=== PATIENT | male | born 1940 | race Caucasian/White ===

== ENCOUNTER 2017-07-28 07:48 | Inpatient (IN) | payer OTHER ==
[2017-07-28] VITALS (8 sets, daily range): BP systolic 93–138; BP diastolic 61–96; PULSE 76–130; TEMP 36.5–36.7; O2SAT 93–100; BMI 18.7
[~2017-07-28] VITALS: Ht 170.2 cm; Wt 62.0 kg
[~2017-07-28 07:48] MED LIST: AMLO-110 PO; LISI-461 PO; PRAV20TA PO
[2017-07-28 08:40] LABS: BASO % 0.1 %; BASO ABS # 0.01 K/uL (0-0.2); EOS % 0.2 %; EOS ABS # 0.02 K/uL (0-0.5); HEMATOCRIT 43.5 % (42-52); HEMOGLOBIN 14.4 g/dL (14.0-18.0); IG# 0.02 K/uL (0.00-0.02); LYMPH % 13.5 %; LYMPH ABS # 1.15 K/uL (1.2-3.4); MEAN CELL VOLUME 87.7 fL (80-100); MEAN CORPUSCULAR HGB CONC 33.1 g/dl (32-36); MEAN PLATELET VOLUME 10.8 fL (7.4-10.4); MONO % 5.5 %; MONO ABS # 0.47 K/uL (0.11-0.59); NEUT % 80.5 %; NEUT ABS # 6.86 K/uL (1.4-6.5); PLATELET COUNT 180 K/uL (130-400); RED CELL DISTRIBUTION WIDTH CV 16.7 % (11.5-14.5); RED CELL DISTRIBUTION WIDTH SD 53.1 fL (36.4-46.3); WHITE BLOOD COUNT 8.53 K/uL (4.8-10.8)
[2017-07-28 08:53] LABS: ALBUMIN 2.7 gm/dl (3.4-5.0); ALT/SGPT 27 U/L (12-78); AST/SGOT 19 U/L (15-37); BLOOD UREA NITROGEN 26 mg/dl (7-18); CALCIUM 8.7 mg/dl (8.5-10.1); CARBON DIOXIDE 27 mmol/L (21-32); CREATININE 1.92 mg/dl (0.60-1.40); GLUCOSE 101 mg/dl (70-99); POTASSIUM 3.3 mmol/L (3.5-5.1); SODIUM 141 mmol/L (136-145)
[2017-07-28 08:55] LABS: INR 1.2 (0.9-1.1)
[2017-07-28 08:59] LABS: ALKALINE PHOSPHATASE 115 U/L (45-117); CKMB 2.2 ng/ml (0.5-3.6)
--- NOTE | 2017-07-28 09:05 | DIAGNOSTIC IMAGING REPORT ---
SINGLE VIEW PELVIS; 2 VIEWS LEFT HIP CLINICAL HISTORY: Left hip pain. FINDINGS: An AP view of the pelvis with AP and crosstable lateral views of the left hip are obtained. No prior studies are available for comparison at the time of dictation. The skeletal structures are osteopenic. There is a nondistracted intertrochanteric fracture of the left hip, best seen on the crosstable lateral projection. The bony pelvis and right hip appear intact. Soft tissue edema is noted in the left upper thigh. Mild arthritic change and joint space narrowing are seen in the hips. Sclerotic change is present in the sacroiliac joints. No bowel obstruction is seen. There is mild atherosclerotic calcification of the femoral arteries. IMPRESSION: 1. There is a nondistracted intertrochanteric fracture of the left femur. 2. No additional fracture is seen involving the right hip or bony pelvis. Electronically signed by: Ye Carrillo M.D. 07/28/2017 9:03 AM Dictated Date/Time: 07/28/2017 9:01 AM
--- NOTE | 2017-07-28 09:07 | DIAGNOSTIC IMAGING REPORT ---
SINGLE VIEW CHEST CLINICAL HISTORY: Fall. Dyspnea. FINDINGS: 2 AP, portable, supine chest radiographs are compared to study dated 01/04/2010 and correlated with chest CT dated 04/18/2010. The examination is degraded by portable technique and patient rotation. The cardiomediastinal heart is enlarged and there is atherosclerotic calcification of the thoracic aorta. The pulmonary vasculature is noncongested. Emphysema and chronic interstitial thickening are similar to previous. There is airspace consolidation identified in the right upper lobe. Opacities are also seen at the left lung base. No large pleural effusion or pneumothorax is seen. The skeletal structures are osteopenic. The bony thorax is grossly intact. IMPRESSION: 1. Cardiomegaly without radiographic evidence of congestive failure. 2. Emphysema. 3. Airspace consolidation is seen in the right upper lobe. Mild opacities are also seen at the left lung base. Correlate clinically for evidence of an infectious/inflammatory pneumonitis. Radiographic follow-up to resolution is recommended. Electronically signed by: Ye Carrillo M.D. 07/28/2017 9:06 AM Dictated Date/Time: 07/28/2017 9:04 AM
[2017-07-28] MEDS ORDERED: POTASSIUM CHLORIDE 10 MEQ / 100ML WTR IV STA (09:10)
[2017-07-28] MEDS ORDERED: DILTIAZEM HCL 5 MG/ML 5 ML VIAL IV STA (09:10)
[2017-07-28] MEDS ORDERED: DILTIAZEM BOLUS / DRIP IV STA (09:10)
[2017-07-28] MEDS ORDERED: NALOXONE HCL 0.4 MG/1 ML VIAL/CARP IV PRN (09:30)
[2017-07-28] MEDS ORDERED: ALUMINUM/MAGNESIUM/SIMETH (MAALOX MAX) 30 ML UDC PO PRN (09:30)
[2017-07-28] MEDS ORDERED: HydrALAZINE HCL 20 MG/ML VIAL IV. PRN (09:30)
[2017-07-28] MEDS ORDERED: MAGNESIUM HYDROXIDE SUSP 30 ML UDC PO PRN ×2 (09:30)
[2017-07-28] MEDS ORDERED: SOD PHOSPHATE/SOD BIPHOSPHATE ENEMA 132 ML BTL PR PRN (09:30)
[2017-07-28] MEDS ORDERED: ONDANSETRON INJ 2 MG/ML 2 ML VIAL IV PRN (09:30)
[2017-07-28] MEDS ORDERED: POLYETHYLENE (MIRALAX) 17 GM PACK PO PRN ×2 (09:30)
[2017-07-28] MEDS ORDERED: BISACODYL 10 MG SUPP PR PRN (09:30)
[2017-07-28] MEDS ORDERED: MoRPHine SULFATE 2 MG/ML CARP IV PRN (09:30)
[2017-07-28] MEDS ORDERED: NITROGLYCERIN 0.4 MG SL PER TAB CHARGE SL PRN (09:30)
[2017-07-28] MEDS: DILTIAZEM HCL INJ 125 MG in DEXTROSE 5% 100ML IV PRN (09:31)
[2017-07-28] MEDS ORDERED: LEVALBUTEROL/IPRATROPIUM NEB INH PRN (09:45)
--- NOTE | 2017-07-28 09:55 | History and Physical ---
History & Physical Date & Time of Service: Jul 28, 2017 at 09:33 Chief Complaint: L-Hip Pain Primary Care Physician: Oliver Boyle M.D. History of Present Illness Source: patient, family (daughter), clinic records, hospital records Patient is a 77 y/o male, with PMHx of HTN, HLD, tobacco abuse, who presented to the ED via EMS due to a fall. History is very limited as patient and daughter have very little history to provide. Per ED, patient had a mechanical fall last night. He then refused to seek medical attention and crawled back into bed. This AM, patient was incontinent of urine/stool due to immobility and EMS was called. Patient denies any syncope, LOC, lightheadedness, or dizziness. However, he cannot elaborate on how he fell. Daughter states "he uses a cane to walk and is very weak. Who knows, his hip could have broke causing him to fall. " Patient denies any h/o cardiac disease, CVA/TIA, DVT/PE. He was found to be in a.fib w/ RVR (rates in 140s) on arrival. He denies any h/o a.fib. IV Cardizem gtt was started in ED. Patient is unsure of medications he is on- daughter states, "he is on blood pressure and cholesterol medication." Per outpatient records: Lisinopril 10 mg daily, Norvasc 5 mg daily, Pravastatin 20 mg daily. He has not seen a PCP in a few years. He notes poor appetite/fluid intake. +L hip pain. +cough w/ yellow sputum production. Patient denies any fever, chills, sweats, lightheadedness, dizziness, vision changes, CP, palpitations, edema, SOB, wheezing, abdominal pain, nausea, vomiting, diarrhea, urinary symptoms, melena, numbness/tingling, anxiety/depression, active bleeding , or new skin discoloration/changes. Past Medical/Surgical History Medical Problems: HTN HLD tobacco abuse L leg surgery back surgery x2 hernia repair Family History Patient reports no known family medical history. Social History Smoking Status: Current Every Day Smoker Marital Status: Housing status: lives with significant other Immunizations History of Influenza Vaccine: No History of Tetanus Vaccine?: Unknown History of Pneumococcal: No History of Hepatitis B Vaccine: No Allergies Coded Allergies: Aspirin (Verified Adverse Reaction, Unknown, VOMITING, 12/17/14) Home Medications No Active Prescriptions or Reported Meds Physical Exam Vital Signs Date Time Temp Pulse Resp B/P (MAP) Pulse Ox O2 Delivery O2 Flow Rate FiO2 07/28/17 08:08 140 07/28/17 08:03 138 18 147/105 96 Room Air General Appearance: no apparent distress, + cachetic, + thin Head: normocephalic, atraumatic Eyes: PERRL ENT: + pertinent finding ([place]) Neck: supple, no JVD Respiratory/Chest: no respiratory distress, no accessory muscle use, + decreased breath sounds (throughout), + wheezing (mild expiratory wheeze) Cardiovascular: + tachycardia, + irregularly irregular Abdomen/GI: normal bowel sounds, non tender, soft Extremities/Musculoskelatal: no calf tenderness, no pedal edema Neurologic/Psych: alert, normal mood/affect Skin: normal color, warm/dry, no rash Diagnostics Laboratory Results Results Past 24 Hours Test 07/28/17 08:25 Range/Units White Blood Count 8.53 4.8-10.8 K/uL Red Blood Count 4.96 4.7-6.1 M/uL Hemoglobin 14.4 14.0-18.0 g/dL Hematocrit 43.5 42-52 % Mean Corpuscular Volume 87.7 80-100 fL Mean Corpuscular Hemoglobin 29.0 25-34 pg Mean Corpuscular Hemoglobin Concent 33.1 32-36 g/dl Platelet Count 180 130-400 K/uL Mean Platelet Volume 10.8 7.4-10.4 fL Neutrophils (%) (Auto) 80.5 % Lymphocytes (%) (Auto) 13.5 % Monocytes (%) (Auto) 5.5 % Eosinophils (%) (Auto) 0.2 % Basophils (%) (Auto) 0.1 % Neutrophils # (Auto) 6.86 1.4-6.5 K/uL Lymphocytes # (Auto) 1.15 1.2-3.4 K/uL Monocytes # (Auto) 0.47 0.11-0.59 K/uL Eosinophils # (Auto) 0.02 0-0.5 K/uL Basophils # (Auto) 0.01 0-0.2 K/uL RDW Standard Deviation 53.1 36.4-46.3 fL RDW Coefficient of Variation 16.7 11.5-14.5 % Immature Granulocyte % (Auto) 0.2 % Immature Granulocyte # (Auto) 0.02 0.00-0.02 K/uL Prothrombin Time 12.9 9.0-12.0 SECONDS Prothromb Time International Ratio 1.2 0.9-1.1 Activated Partial Thromboplast Time 25.0 21.0-31.0 SECONDS Partial Thromboplastin Ratio 1.0 Sodium Level 141 136-145 mmol/L Potassium Level 3.3 3.5-5.1 mmol/L Chloride Level 108 98-107 mmol/L Carbon Dioxide Level 27 21-32 mmol/L Anion Gap 6.0 3-11 mmol/L Blood Urea Nitrogen 26 7-18 mg/dl Creatinine 1.92 0.60-1.40 mg/dl Estimated GFR () 37.8 Estimated GFR (Non- 32.6 BUN/Creatinine Ratio 13.8 10-20 Random Glucose 101 70-99 mg/dl Calcium Level 8.7 8.5-10.1 mg/dl Total Bilirubin 1.6 0.2-1 mg/dl Aspartate Amino Transf (AST/SGOT) 19 15-37 U/L Alanine Aminotransferase (ALT/SGPT) 27 12-78 U/L Alkaline Phosphatase 115 45-117 U/L Total Creatine Kinase 68 39-308 U/L Creatine Kinase MB 2.2 0.5-3.6 ng/ml Creatine Kinase MB Ratio 3.2 0-3.0 Troponin I 0.024 0-0.045 ng/ml Pro-B-Type Natriuretic Peptide > 50778 0-1800 pg/ml Total Protein 7.0 6.4-8.2 gm/dl Albumin 2.7 3.4-5.0 gm/dl Globulin 4.3 2.5-4.0 gm/dl Albumin/Globulin Ratio 0.6 0.9-2 Diagnostic Radiology SINGLE VIEW CHEST CLINICAL HISTORY: Fall. Dyspnea. FINDINGS: 2 AP, portable, supine chest radiographs are compared to study dated 01/04/2010 and correlated with chest CT dated 04/18/2010. The examination is degraded by portable technique and patient rotation. The cardiomediastinal heart is enlarged and there is atherosclerotic calcification of the thoracic aorta. The pulmonary vasculature is noncongested. Emphysema and chronic interstitial thickening are similar to previous. There is airspace consolidation identified in the right upper lobe. Opacities are also seen at the left lung base. No large pleural effusion or pneumothorax is seen. The skeletal structures are osteopenic. The bony thorax is grossly intact. IMPRESSION: 1. Cardiomegaly without radiographic evidence of congestive failure. 2. Emphysema. 3. Airspace consolidation is seen in the right upper lobe. Mild opacities are also seen at the left lung base. Correlate clinically for evidence of an infectious/inflammatory pneumonitis. Radiographic follow-up to resolution is recommended. Electronically signed by: Ye Carrillo M.D. 07/28/2017 9:06 AM Dictated Date/Time: 07/28/2017 9:04 AM The status of this report is Signed. Draft = Not yet reviewed or approved by Radiologist. Signed = Reviewed and approved by Radiologist. SINGLE VIEW PELVIS; 2 VIEWS LEFT HIP CLINICAL HISTORY: Left hip pain. FINDINGS: An AP view of the pelvis with AP and crosstable lateral views of the left hip are obtained. No prior studies are available for comparison at the time of dictation. The skeletal structures are osteopenic. There is a nondistracted intertrochanteric fracture of the left hip, best seen on the crosstable lateral projection. The bony pelvis and right hip appear intact. Soft tissue edema is noted in the left upper thigh. Mild arthritic change and joint space narrowing are seen in the hips. Sclerotic change is present in the sacroiliac joints. No bowel obstruction is seen. There is mild atherosclerotic calcification of the femoral arteries. IMPRESSION: 1. There is a nondistracted intertrochanteric fracture of the left femur. 2. No additional fracture is seen involving the right hip or bony pelvis. Electronically signed by: Ye Carrillo M.D. 07/28/2017 9:03 AM Dictated Date/Time: 07/28/2017 9:01 AM The status of this report is Signed. Draft = Not yet reviewed or approved by Radiologist. Signed = Reviewed and approved by Radiologist HARVEY STEINERMANGREGORIO ID:[id number] 28-JUL-2017 08:06:30 [facility] Poor data quality, interpretation may be adversely affected Undetermined rhythm ST & T wave abnormality, consider inferolateral ischemia Abnormal ECG When compared with ECG of 03-DEC-2014 09:22, Current undetermined rhythm precludes rhythm comparison, needs review T wave inversion now evident in Inferior leads T wave inversion now evident in Anterolateral leads 25mm/s 10mm/mV 150Hz 8.0 SP2 12SL 241 YAZAN: 10 Referred by: Referred Self Unconfirmed Vent. rate 142 BPM FL interval * ms QRS duration 82 ms QT/QTc 260/399 ms P-R-T axes * 73 258 1940 (77 yr) Male 1lb Room: Loc:15 Clinical Research Associate:SAMY Childs ind: Impression Assessment and Plan Patient is a 77 y/o male, with PMHx of HTN, HLD, tobacco abuse, who presented to the ED via EMS due to a fall. L hip fracture from mechanical fall: - Tylenol PRN, Oxycodone PRN, and IV Dilaudid PRN for pain management - Check Vitamin D level - PT/OT once OK by orthopedics- will likely need placement - Will make NPO after midnight - Orthopedics consulted, appreciate recommendations - Cardiology consulted for preop clearance, appreciate recommendations New onset a.fib w/ RVR: - Admit to tele for cardiac monitoring - Trend cardiac enzymes - O2 protocol, wean as tolerated- does NOT have O2 supplement at home - Check mag level - Cardizem gtt - No anticoagulation at this time due to possible upcoming orthopedics procedure - Obtain ECHO - Elevated BNP- does not appear clinically to be fluid overloaded, CXR w/out evidence of CHF - Cardiology consulted PNA- RUL and LLB: - IV Rocephin + Azithromycin - DuoNebs QID and PRN for SOB/wheezing - MRSA swab and sputum cultures pending Hypokalemia: - IV 10 mEq KCL given in ED - Follow PRP and replace PRN ?REBEKAH on CKD stage III- 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: - Avoid nephrotoxic agents and renally dose medications as appropriate - Gentle hydration w/ IV NS + 20 mEq KCL @ 80 ml/hr - Follow PRP HTN: - Will hold Lisinopril 10 mg daily and Norvasc 5 mg daily due to IV Cardizem gtt - IV Hydralazine PRN HLD: Continue Pravastatin 20 mg HS DVT prophylaxis: TEDs/SCDs; no chemical anticoagulation due to ?orthopedics procedure Code status: LEVEL V, DNR Dispo: From home, lives with - CM consulted; will consult PT/OT once OK by orthopedics Resuscitation Status LEVEL V, DNR VTE Prophylaxis Will order VTE Prophylaxis: Yes Reviewed: Pt Seen/Exam by Me History Physician Appraiser Art supervision Note: I interviewed and examined the patient. Discussed with CORDELIA Warren and agree with findings and plan as documented in the note. Any exceptions or clarifications are listed here: Patient is a 77-year-old male with history of hypertension, hyperlipidemia, likely COPD, current smoker, and no regular primary care, admitted with mechanical fall with left hip fracture, found to be with new onset rapid atrial fibrillation, also with findings of bilateral pneumonia on chest x-ray. He reports some progressively worsening shortness of breath more so in the last few months, but has not noted any chest pain or heart palpitations. He has not been seen by a Dr. in a couple of years as per the history. History reviewed and agree with PA note as above ROS as above Vitals reviewed, telemetry with atrial fibrillation now rate controlled in the 90s on a diltiazem drip Gen: Alert and awake, cachectic, lying flat on his back, NAD HEENT: anicteric sclerae, EOMI CV: Irregularly irregular, regular rate, difficult to auscultate murmur Pulm: Diminished breath sounds throughout, scattered rhonchi, no crackles Abd: +BS soft NT ND no masses or hernias, Rogers catheter in place Ext: no edema, 1 + DP pulses bilaterally, left hip with positive tenderness to palpation Skin: no rashes, warm/dry Echo with biventricular systolic dysfunction, LVEF 20-25%, elevated right-sided pressures, and moderate to severe mitral regurgitation Patient is a 69-year-old male with history as above, here with left hip fracture new onset rapid atrial fibrillation, as well as new onset biventricular systolic CHF. Does not clinically seem to be volume overloaded, perhaps proBNP significantly elevated due to mitral regurgitation-discussed case with cardiology. It is impossible to know when his atrial fibrillation started. With biventricular systolic CHF, he may have ischemic disease, as well as right-sided failure from either left-sided heart failure or from pulmonary disease. -We will transition off diltiazem drip to p.o. metoprolol for rate control and carefully watch blood pressure -Eventually will need anticoagulation for atrial fibrillation -Appreciate cardiology consultation-should be able to go to surgery tomorrow -Appreciate orthopedic surgery consultation for fracture management -Otherwise treatment for suspected pneumonia and suspected COPD as above- although with cachexia and long-term smoking, these infiltrates very well could be hiding a malignancy as well. Will need either CT of the chest to further clarify, or follow serial chest x-rays to resolution. Documented By: Mirian Dumont
--- NOTE | 2017-07-28 09:58 | CONSULTATION REPORT ---
DATE OF CONSULTATION: 07/28/2017 Consultation in the Emergency Room. HISTORY OF PRESENT ILLNESS: Jas is a pleasant gentleman. He is 77, looks much older than stated age, in poor state of health, fell, suffered an acute injury to his left lower extremity. He suffered an intertrochanteric fracture of the left hip. PAST MEDICAL HISTORY: Positive for atrial fibrillation, COPD. I did not get a history of carcinoma. MEDICATIONS: Numerous left on his questionnaire. REVIEW OF SYSTEMS: He admits to some shortness of breath, some chest pain. Denies any abdominal pain. Admits to mostly orthopedic issues. Denies any ear, nose, and throat complaints. PHYSICAL EXAMINATION: VITAL SIGNS: Includes blood pressure 140/90, pulse 100, slightly rapid. Respiratory rate 22, O2 sat pulse ox 96. HEENT EXAMINATION: Essentially normal. He is cachectic in appearance. He is slightly disheveled. He is very very cachectic all over. CARDIAC: His rhythm is not regular, I am not sure exactly what rhythm it is, but about 100 beats per minute. LUNGS: Slightly decreased. ABDOMEN: Flat, scaphoid, but nontender. EXTREMITIES: Intact x4. Left hip has pain over the greater trochanter. DIAGNOSTIC DATA: X-rays demonstrate intertrochanteric fracture of the hip, minimally displaced. IMPRESSION: Intertrochanteric fracture, left hip, minimally displaced. PLAN: He is being admitted to the medical service. We will get appropriate labs. We will put him on the schedule for tomorrow for an open reduction and internal fixation of the left hip, that will be Saturday. I estimate time of surgery around 5:00 p.m.
[2017-07-28] MEDS: NSS + 20MEQ KCL 1000ML 1,000 ML IV SCH (11:11)
[2017-07-28] MEDS: CEFTRIAXONE SOD INJ 1 GM in DEXTROSE 5% ADD-VANTAGE 50ML 50 ML IV SCH (11:13)
[2017-07-28] MEDS ORDERED: AZITHROMYCIN IV 500 MG in DEXTROSE 5% 250ML 250 ML IV ONE (12:00)
[2017-07-28] MEDS ORDERED: PNEUMOCOCCAL ADMINISTRATION CHARGE ONE (14:15)
[2017-07-28] MEDS ORDERED: PNEUMOCOCCAL POLYSACCHARIDES 25 MCG/0.5 ML VIAL/SYR IM. ONE (14:15)
[2017-07-28] MEDS ORDERED: LEVALBUTEROL/IPRATROPIUM NEB INH SCH (15:00)
[2017-07-28] MEDS: IPRATROPIUM BROMIDE NEB SOLN 0.02% 2.5 ML VIAL INH SCH ×2 (15:02→19:06)
[2017-07-28] MEDS: LEVALBUTEROL 1.25MG/0.5ML NEB INH SCH ×2 (15:02→19:04)
[2017-07-28] MEDS: PRAVASTATIN SOD 20 MG TAB PO SCH (16:14)
--- NOTE | 2017-07-28 17:21 | ECHOCARDIOGRAM REPORT ---
*NOTICE TO RECEIVING DEMOCRAT AGENCY This information is strictly Confidential and protected under [place] law. [place] law prohibits you from making any further disclosure of this information unless further disclosure is expressly permitted by the written consent of the person to whom it pertains or is authorized by law. A general authorization for the release of medical or other information is not sufficient for this purpose. Hospital accepts no responsibility if the information is made available to any other person, INCLUDING THE PATIENT. Interpretation Summary * Name: GREGORIO MURILLO Study Date: 07/28/2017 01:31 PM * Patient Location: .2T\S\E222\S\1 HR: 107 * : 1940 (M/d/yyyy) Gender: Male Height: 67 in * Age: 77 yrs Ethnicity: [place] Weight: 119 lb * Ordering Physician: Rose Warren * Referring Physician: Self, Referred * Performed By: Josh Sherman RDCS * * Reason For Study: A-FIB * BSA: 1.6 m2 * -- Conclusions -- * Left ventricular systolic function is severely reduced. * The right ventricular systolic function is reduced as assessed by tricuspid annular plane systolic excursion (TAPSE) (TAPSE <1.6 cm). * The left atrium is borderline dilated. * Aortic valve sclerosis mild, without significant aortic valvular stenosis. * There is moderate to severe mitral regurgitation. * There is mild to moderate tricuspid regurgitation. * Right ventricular systolic pressure is elevated at 30-40mmHg. Procedure Details * A complete two-dimensional transthoracic echocardiogram was performed (2D, M-mode, Doppler and color flow Doppler). * The study was technically limited. * There were technical limitations due to patient'spoor positioning * The study was technically difficult, but visualization was adequate with the administration of Definity ultrasound contrast. * A contrast injection of Definity was performed to improve assessment of LV function. * Contrast was injected into an intravenous site in the right arm. * One vial of Definity ultrasound contrast was diluted in normal saline to a total volume of 10 ml. A total of '3' ml of solution was administered during imaging. * Lot # [id number] of Definity utilized for procedure. * Expiration date 1APR19. * The attending nurse who injected the contrast agent was DANDY Paez. Left Ventricle * The left ventricle is normal in size. * There is normal left ventricular wall thickness. * Left ventricular systolic function is severely reduced. * Ejection Fraction = 20-25%. * There is severe global hypokinesis of the left ventricle. Right Ventricle * The right ventricular cavity size is normal (basal dimension <4.2 cm in right ventricular apical 4-chamber view). * The right ventricular systolic function is reduced as assessed by tricuspid annular plane systolic excursion (TAPSE) (TAPSE <1.6 cm). Atria * The left atrium is borderline dilated. * Right atrial size is normal. Mitral Valve * The mitral valve leaflets appear thickened, but open well. * There is moderate to severe mitral regurgitation. * The mitral regurgitant jet is eccentrically directed. * The mitral regurgitant jet is posteriorly directed, which is consistent with anterior leaflet pathology. Tricuspid Valve * The tricuspid valve is not well visualized, but is grossly normal. * There is mild to moderate tricuspid regurgitation. * Right ventricular systolic pressure is elevated at 30-40mmHg. Aortic Valve * Aortic valve sclerosis mild, without significant aortic valvular stenosis. * Not assessed * Trace aortic regurgitation. Pulmonic Valve * The pulmonic valve is not well visualized. Pericardium/Pleural * There is no pericardial effusion. Great Vessels * Dilated inferior vena cava with reduced collapsability with sniff indicates an elevated right atrial pressure of 15 mmHg MMode 2D Measurements and Calculations IVSd 1.1 cm IVSs 1.1 cm LVIDd 5.1 cm LVIDs 4.6 cm LVPWd 1.1 cm LVPWs 1.2 cm IVS/LVPW 0.96 FS 10.1 % EDV(Teich) 124.3 ml ESV(Teich) 97.1 ml EF(Teich) 21.9 % EDV(cubed) 133.3 ml ESV(cubed) 97.0 ml EF(cubed) 27.3 % % IVS thick 3.8 % % LVPW thick 10.4 % LV mass(C)d 209.4 grams LV mass(C)dI 129.1 grams/m\S\2 LV mass(C)s 194.4 grams LV mass(C)sI 119.9 grams/m\S\2 SV(Teich) 27.2 ml SI(Teich) 16.8 ml/m\S\2 SV(cubed) 36.3 ml SI(cubed) 22.4 ml/m\S\2 ACS 1.5 cm LA dimension 4.4 cm LVOT diam 1.9 cm LVOT area 3.0 cm\S\2 LVAd ap4 28.1 cm\S\2 LVLd ap4 7.5 cm EDV(MOD-sp4) 87.7 ml EDV(sp4-el) 89.7 ml LVAs ap4 23.5 cm\S\2 LVLs ap4 7.3 cm ESV(MOD-sp4) 64.0 ml ESV(sp4-el) 64.4 ml EF(MOD-sp4) 27.1 % EF(sp4-el) 28.2 % LVAd ap2 25.9 cm\S\2 LVLd ap2 7.4 cm EDV(MOD-sp2) 76.0 ml EDV(sp2-el) 76.8 ml LVAs ap2 21.9 cm\S\2 LVLs ap2 7.0 cm ESV(MOD-sp2) 56.3 ml ESV(sp2-el) 58.4 ml EF(MOD-sp2) 25.8 % EF(sp2-el) 23.9 % LVLd %diff -0.16 % EDV(MOD-bp) 81.7 ml LVLs %diff -4.18 % ESV(MOD-bp) 61.0 ml EF(MOD-bp) 25.3 % SV(MOD-sp4) 23.7 ml SI(MOD-sp4) 14.6 ml/m\S\2 SV(MOD-sp2) 19.6 ml SI(MOD-sp2) 12.1 ml/m\S\2 SV(MOD-bp) 20.7 ml SI(MOD-bp) 12.7 ml/m\S\2 SV(sp4-el) 25.3 ml SI(sp4-el) 15.6 ml/m\S\2 SV(sp2-el) 18.4 ml SI(sp2-el) 11.3 ml/m\S\2 Doppler Measurements and Calculations MV E max candi 93.8 cm/sec MV dec time 0.13 sec LV V1 max PG 1.8 mmHg LV V1 max 67.4 cm/sec TR max candi 214.8 cm/sec
[2017-07-28 17:34] LABS: CKMB 2.2 ng/ml (0.5-3.6)
[2017-07-28] MEDS ORDERED: POTASSIUM CHLORIDE 20 MEQ TABCR PO ONE (18:15)
--- NOTE | 2017-07-28 18:22 | Progress Note ---
Progress Note Date of Service Jul 28, 2017. Progress Note The patient is a 77 year old scheduled for an IM rodding tomorrow after suffering a mechanical fall. The H&P states that he arrived in atrial fibrillation which seems unclear to me because his admitting EKG shows and undetermined rhythm. He denies a history of cardiac disease but he rarely sees his PCP. His previous EKG from 2014 is sinus rhythm. A cardiac consult has been ordered. He is an active smoker and smokes approximately one pack per day. He has hypertension and HLD. His echocardiogram which was just done shows severe global hypokinesis of the LV and an EF of 20-25%. He has moderate to severe MR, mild to moderate TR and and an elevated RVSP of 30-40.
--- NOTE | 2017-07-28 19:01 | Cardiology Consultation ---
Cardiology Consultation Date of Consultation: Jul 28, 2017. Requesting Physician: Tim Reason for Consultation: Atrial fibrillation Pt evaluation today including: conversation w/ patient, physical exam, chart review, lab review, review of studies, review of inpatient medication list, conversation w/ attending History of Present Illness The patient is 69-year-old gentleman without a known cardiac history suffered a fall early this morning and fractured his hip. He is brought to [facility] for evaluation and discovered to have atrial fibrillation with rapid ventricular response. Patient states that he has been unaware of any arrhythmia. He has not noticed any palpitations or rapid heartbeats. He does claim to check his blood pressure and pulse on occasion has not noticed any high pulse readings. He states that normally he is ambulatory and likes to go hunting and camping. This history is contradicted by other family members who states that he has weakness and uses a cane for ambulation. Does report having an element of dyspnea with activity. He does not report orthopnea or paroxysmal nocturnal dyspnea. He has not report any swelling in his lower extremities. He has not report any symptoms of chest pain either at rest or with activity. He states that he does get dizzy on occasion but has difficulty characterizing this further. At the time of this interview the patient complains of some discomfort at his fracture. Otherwise claims to be feeling well. Past Medical/Surgical History COPD Hyperlipidemia Hypertension Abdominal aortic aneurysm Past surgical history: Inguinal hernia repair Family History Patient reports no known family medical history. Noncontributory given his advanced age and comorbidities Social History Smoking Status: Current Every Day Smoker History of Alcohol Use: Yes Previously worked as a [employer]. Currently lives independently with his Review of Systems He denies any recent fevers or chills. He states that he has been eating well and not losing weight. In fact he states he is at his ideal weight. All Other Systems: Reviewed and Negative Allergies Coded Allergies: Aspirin (Verified Adverse Reaction, Unknown, VOMITING, 12/17/14) Medications Current Inpatient Medications Medications (Trade) Dose Ordered Sig/Luis Route Start Time Stop Time Status Last Admin Dose Admin Diltiazem HCl 125 mg/Dextrose 125 ml @ 0 mls/hr Q0M PRN IV 07/28/17 09:15 08/27/17 09:14 07/28/17 09:31 5 MLS/HR Potassium Chloride/Sodium Chloride 1,000 ml @ 50 mls/hr Q20H IV 07/28/17 11:00 08/27/17 10:59 07/28/17 11:11 80 MLS/HR Acetaminophen (Tylenol Tab) 650 mg Q4H PRN PO 07/28/17 09:30 08/27/17 09:29 Al Hydrox/Mg Hydrox/Simethicone (Maalox Max Susp) 15 ml Q4H PRN PO 07/28/17 09:30 08/27/17 09:29 Magnesium Hydroxide (Milk Of Magnesia Susp) 30 ml Q12H PRN PO 07/28/17 09:30 08/27/17 09:29 Ondansetron HCl (Zofran Inj) 4 mg Q6H PRN IV 07/28/17 09:30 08/27/17 09:29 Nitroglycerin (Nitrostat Tab) 0.4 mg UD PRN SL 07/28/17 09:30 08/27/17 09:29 Morphine Sulfate (MoRPHine SULFATE INJ) 2 mg Q30M PRN IV 07/28/17 09:30 08/11/17 09:29 Polyethylene (Miralax Powder Packet) 17 gm DAILY PRN PO 07/28/17 09:30 08/27/17 09:29 Oxycodone HCl (Roxicodone Immediate Rel Tab) 5 mg Q4H PRN PO 07/28/17 09:30 08/11/17 09:29 Naloxone HCl (Narcan Inj) 0.1 mg PRN PRN IV 07/28/17 09:30 08/27/17 09:29 Senna/Docusate Sodium (Senokot S Tab) 2 tab HS PO 07/28/17 21:00 08/27/17 20:59 Bisacodyl (Dulcolax Supp) 10 mg DAILY PRN IL 07/28/17 09:30 08/27/17 09:29 Sodium Biphosphate/ Sodium Phosphate (Fleet Enema) 132 ml PRN PRN IL 07/28/17 09:30 Hydromorphone HCl (Dilaudid Inj) 0.5 mg Q3H PRN IV 07/28/17 09:30 08/11/17 09:29 Hydralazine HCl (HydrALAZINE INJ) 10 mg Q6H PRN IV. 07/28/17 09:30 08/27/17 09:29 Ceftriaxone Sodium 1 gm/ Dextrose 50 ml @ 100 mls/hr Q24H IV 07/28/17 11:00 08/04/17 10:59 07/28/17 11:13 100 MLS/HR Azithromycin 250 mg/Dextrose 252.5 ml @ 125 mls/hr DAILY@1200 IV 07/29/17 12:00 08/04/17 11:59 Pravastatin Sodium (Pravachol Tab) 20 mg DAILY@17 PO 07/28/17 17:00 08/27/17 16:59 07/28/17 16:14 20 MG Ipratropium [place]us (Atrovent 0.02% 0.5MG/2.5ML Neb) 0.5 mg Q6R INH 07/28/17 15:00 08/27/17 14:59 07/28/17 15:02 0.5 MG Levalbuterol (Xopenex 1.25MG/ 0.5ML Neb) 1.25 mg Q6R INH 07/28/17 15:00 08/27/17 14:59 07/28/17 15:02 1.25 MG Cefazolin Sodium 15 ml @ 3.75 mls/ min PREOP IV 07/29/17 06:00 07/29/17 18:00 Metoprolol Tartrate (Lopressor Tab) 12.5 mg BID PO 07/28/17 21:00 08/27/17 20:59 UNV Physical Exam Vital Signs Past 12 Hours Date Time Temp Pulse Resp B/P (MAP) Pulse Ox O2 Delivery O2 Flow Rate FiO2 07/28/17 16:00 Room Air 07/28/17 15:33 36.5 92 20 98/64 (75) 93 07/28/17 15:04 87 18 93 Room Air 07/28/17 12:00 Room Air 07/28/17 10:44 36.5 112 18 138/96 (110) 98 Room Air 07/28/17 10:20 105 22 140/94 94 07/28/17 09:49 96 Room Air 07/28/17 09:28 100 22 140/94 96 Room Air 07/28/17 08:08 140 07/28/17 08:03 138 18 147/105 96 Room Air The patient is alert and oriented. Mood and affect appeared normal. He answered all questions appropriately. He appeared cachectic and thin HEENT: Pupils are equal and reactive to light and accommodation. Extraocular movements are intact. The sclerae are anicteric. Neuro: Cranial nerves intact Neck: Patient's neck is supple. He has palpable carotid pulses bilaterally without bruits on auscultation. There is no evidence of jugular venous distention. The thyroid is not enlarged. Lungs: Clear to auscultation bilaterally. He has good air movement without use of accessory muscles. No rales wheezes or rhonchi. Cardiac: Heart demonstrates an irregular rate and rhythm. Normal S1 and S2. Holosystolic murmur of variable intensity heard at the axilla. Pulses: The patient has palpable radial pulses bilaterally that are equal in intensity Extremities: There was no evidence of hypoperfusion. There is no cyanosis or clubbing. There is no edema. Skin: I did not appreciate any rashes on examination today. Data Laboratory Results: Last 24 Hours Test 07/28/17 08:25 07/28/17 11:20 07/28/17 16:20 07/28/17 16:43 White Blood Count 8.53 K/uL Red Blood Count 4.96 M/uL Hemoglobin 14.4 g/dL Hematocrit 43.5 % Mean Corpuscular Volume 87.7 fL Mean Corpuscular Hemoglobin 29.0 pg Mean Corpuscular Hemoglobin Concent 33.1 g/dl Platelet Count 180 K/uL Mean Platelet Volume 10.8 fL Neutrophils (%) (Auto) 80.5 % Lymphocytes (%) (Auto) 13.5 % Monocytes (%) (Auto) 5.5 % Eosinophils (%) (Auto) 0.2 % Basophils (%) (Auto) 0.1 % Neutrophils # (Auto) 6.86 K/uL Lymphocytes # (Auto) 1.15 K/uL Monocytes # (Auto) 0.47 K/uL Eosinophils # (Auto) 0.02 K/uL Basophils # (Auto) 0.01 K/uL RDW Standard Deviation 53.1 fL RDW Coefficient of Variation 16.7 % Immature Granulocyte % (Auto) 0.2 % Immature Granulocyte # (Auto) 0.02 K/uL Prothrombin Time 12.9 SECONDS Prothromb Time International Ratio 1.2 Activated Partial Thromboplast Time 25.0 SECONDS Partial Thromboplastin Ratio 1.0 Sodium Level 141 mmol/L Potassium Level 3.3 mmol/L Chloride Level 108 mmol/L Carbon Dioxide Level 27 mmol/L Anion Gap 6.0 mmol/L Blood Urea Nitrogen 26 mg/dl Creatinine 1.92 mg/dl Estimated GFR () 37.8 Estimated GFR (Non- 32.6 BUN/Creatinine Ratio 13.8 Random Glucose 101 mg/dl Calcium Level 8.7 mg/dl Magnesium Level 2.0 mg/dl Total Bilirubin 1.6 mg/dl Aspartate Amino Transf (AST/SGOT) 19 U/L Alanine Aminotransferase (ALT/SGPT) 27 U/L Alkaline Phosphatase 115 U/L Total Creatine Kinase 68 U/L Creatine Kinase MB 2.2 ng/ml 2.2 ng/ml Creatine Kinase MB Ratio 3.2 Troponin I 0.024 ng/ml 0.024 ng/ml Pro-B-Type Natriuretic Peptide > 88747 pg/ml Total Protein 7.0 gm/dl Albumin 2.7 gm/dl Globulin 4.3 gm/dl Albumin/Globulin Ratio 0.6 25-Hydroxy Vitamin D Total 5.6 ng/ml Urine Color DK YELLOW Urine Appearance CLEAR Urine pH 5.5 Urine Specific [place] 1.026 Urine Protein 1+ Urine Glucose (UA) NEG Urine Ketones TRACE Urine Occult Blood TRACE Urine Nitrite NEG Urine Bilirubin NEG Urine Urobilinogen NEG Urine Leukocyte Esterase NEG Urine WBC (Auto) 0 /hpf Urine RBC (Auto) 0-4 /hpf Urine Hyaline Casts (Auto) 1-5 /lpf Urine Epithelial Cells (Auto) 10-20 /lpf Urine Bacteria (Auto) NEG Imaging: Chest x-ray demonstrated some parenchymal changes but no evidence of pulmonary edema EKG: Atrial fibrillation with rapid ventricular response Telemetry reviewed: Atrial fibrillation with rapid ventricular response Echocardiogram performed today revealed severe biventricular failure with severe mitral regurgitation. Assessment & Plan 1. Left ventricular systolic failure: Patient actually has biventricular failure. He is not appear to be overtly symptomatic. I suspect he is very sedentary and performs limited activity perhaps due to other comorbidities. Despite a markedly elevated N terminal proBNP his lung examination is relatively benign. He has not report orthopnea and does not appear to be volume overloaded. The etiology of his ventricular failure is unclear. He certainly has multiple risk factors for coronary artery disease. However, he has biventricular failure and has not manifest symptoms of chest pain or angina. I think this would be unusual in a male if he had an ischemic cardiomyopathy. In any event he will require some evaluation in the near future. Medical therapy will be initiated after his surgery. 2. Atrial fibrillation: Unclear duration. He claims to monitor his pulse at home but I am not sure how reliable he has. It is possible this represents an etiology for his reduced LV function. Overall rate control was poor the time of admission but he was in pain and may have been slightly hypovolemic. This afternoon his heart rates are improved. I think we can start a low-dose beta- myke and see how response before his surgery tomorrow. 3. Valvular heart disease: Patient appears to have moderate to severe mitral regurgitation. This likely to require some additional evaluation in order to gauge the severity. However, with his reduced LV systolic function he is not a good candidate for any type of operative intervention.
[2017-07-28] MEDS: METOPROLOL TARTRATE 25 MG TAB PO SCH (21:00)
[2017-07-28] MEDS: HYDROmorphone INJ 0.5 MG/0.5 ML SYR IV PRN (21:07)
[2017-07-28] MEDS: DOCUSATE SODIUM/SENNA 50/8.6MG TAB PO SCH (21:07)
[2017-07-28] MEDS: OXYCODONE HCL IR 5 MG TAB (IMMEDIATE RELEASE) PO PRN (23:03)
[2017-07-28] MEDS ORDERED: LORAZEPAM 2 MG/ML 1 ML VIAL ONE (23:19)
[2017-07-28] MEDS ORDERED: LORAZEPAM 2 MG/ML 1 ML VIAL IV STA (23:41)
[2017-07-29] VITALS (16 sets, daily range): BP systolic 96–133; BP diastolic 67–86; PULSE 50–144; TEMP 36.2–36.6; O2SAT 93–100; Ht 170.2 cm; Wt 62.0 kg
[2017-07-29 01:08] LABS: CKMB 1.7 ng/ml (0.5-3.6)
[2017-07-29] MEDS: IPRATROPIUM BROMIDE NEB SOLN 0.02% 2.5 ML VIAL INH SCH ×4 (01:47→19:41)
[2017-07-29] MEDS: LEVALBUTEROL 1.25MG/0.5ML NEB INH SCH ×4 (01:47→19:41)
[2017-07-29] MEDS: NSS + 20MEQ KCL 1000ML 1,000 ML IV SCH (05:16)
[2017-07-29] MEDS ORDERED: CEFAZOLIN IV 2,000 MG in DEXTROSE 5% 50ML 50 ML IV SCH (06:00)
[2017-07-29] MEDS ORDERED: CEFAZOLIN 2000MG IV PUSH 15 ML IV SCH (06:00)
[2017-07-29 07:07] LABS: HEMATOCRIT 36.1 % (42-52); HEMOGLOBIN 11.9 g/dL (14.0-18.0); MEAN CELL VOLUME 87.4 fL (80-100); MEAN CORPUSCULAR HEMOGLOBIN 28.8 pg (25-34); MEAN PLATELET VOLUME 10.5 fL (7.4-10.4); PLATELET COUNT 134 K/uL (130-400); RED CELL DISTRIBUTION WIDTH CV 16.7 % (11.5-14.5); RED CELL DISTRIBUTION WIDTH SD 52.9 fL (36.4-46.3); WHITE BLOOD COUNT 7.17 K/uL (4.8-10.8)
[2017-07-29 07:46] LABS: CALCIUM 8.4 mg/dl (8.5-10.1); CREATININE 1.95 mg/dl (0.60-1.40); POTASSIUM 5.1 mmol/L (3.5-5.1)
--- NOTE | 2017-07-29 08:52 | Hospitalist Progress Note ---
Hospitalist Progress Note Date of Service Jul 29, 2017. (Sally Cee PA-C) Subjective Pt evaluation today including: conversation w/ patient, physical exam, chart review, lab review, review of studies PO Intake: NPO Voiding: holly catheter in place (draining dark muddy colored urine) The patient was seen and examined this afternoon. Pt is extremely hard of hearing but minimally participates in discussion/conversation due to lethargy. His rate seems better since Cardizem gtt was reinitiated this afternoon, got 1 dose IV lopressor, no PO metoprolol was administered due to increased sedation. He seems to be in pain with any movement of his left lower extremity. Overnight tele events: 10 beat run of [facility] Additional Comments: Unable to obtain d/t lethargy (Sally Cee, YSABEL) Objective Vital Signs Date Time Temp Pulse Resp B/P (MAP) Pulse Ox O2 Delivery O2 Flow Rate FiO2 07/29/17 08:15 36.4 119 16 130/86 (101) 100 2.0 07/29/17 07:17 60 18 98 Nasal Cannula 2.0 07/29/17 04:00 98 Nasal Cannula 2.0 07/29/17 03:22 36.4 107 18 113/80 (91) 98 07/29/17 01:47 109 20 100 Nasal Cannula 2.0 07/29/17 00:01 95 Nasal Cannula 2.0 07/28/17 23:30 36.7 130 18 124/95 (105) 96 Nasal Cannula 2.0 07/28/17 20:00 95 Room Air 07/28/17 19:09 36.5 103 20 93/61 (72) 100 Room Air 07/28/17 19:06 76 18 94 Room Air 07/28/17 16:00 Room Air 07/28/17 15:33 36.5 92 20 98/64 (75) 93 07/28/17 15:04 87 18 93 Room Air 07/28/17 12:00 Room Air 07/28/17 10:44 36.5 112 18 138/96 (110) 98 Room Air 07/28/17 10:20 105 22 140/94 94 07/28/17 09:49 96 Room Air 07/28/17 09:28 100 22 140/94 96 Room Air (Sally Cee, PA-C) Physical Exam General Appearance: WD/WN, no apparent distress, + thin (cachetic), + pertinent finding Eyes: PERRL, EOMI, + pertinent finding (MMM, endentulous) ENT: pharynx normal, + pertinent finding (hard of hearing) Neck: supple, no JVD Respiratory/Chest: lungs clear, no respiratory distress Cardiovascular: + systolic murmur (holosystolic), + irregularly irregular ( rates in 110-120s) Abdomen: normal bowel sounds, non tender, soft, + pertinent finding (Holly catheter draining darkened muddy colored urine) Extremities: non-tender, no pedal edema, no calf tenderness, + pertinent finding (LLE internally rotated and shortened) Neurologic/Psychiatric: alert, normal mood/affect, oriented x 3 Skin: normal color, warm/dry (Sally Cee, PA-C) Laboratory Results Last 24 Hours Test 07/28/17 11:20 07/28/17 16:20 07/28/17 16:43 07/29/17 00:20 Urine Color DK YELLOW Urine Appearance CLEAR Urine pH 5.5 Urine Specific [place] 1.026 Urine Protein 1+ Urine Glucose (UA) NEG Urine Ketones TRACE Urine Occult Blood TRACE Urine Nitrite NEG Urine Bilirubin NEG Urine Urobilinogen NEG Urine Leukocyte Esterase NEG Urine WBC (Auto) 0 /hpf Urine RBC (Auto) 0-4 /hpf Urine Hyaline Casts (Auto) 1-5 /lpf Urine Epithelial Cells (Auto) 10-20 /lpf Urine Bacteria (Auto) NEG Creatine Kinase MB Ratio Creatine Kinase MB 2.2 ng/ml Troponin I 0.024 ng/ml Test 07/29/17 00:29 07/29/17 06:51 Creatine Kinase MB 1.7 ng/ml Troponin I 0.022 ng/ml White Blood Count 7.17 K/uL Red Blood Count 4.13 M/uL Hemoglobin 11.9 g/dL Hematocrit 36.1 % Mean Corpuscular Volume 87.4 fL Mean Corpuscular Hemoglobin 28.8 pg Mean Corpuscular Hemoglobin Concent 33.0 g/dl RDW Standard Deviation 52.9 fL RDW Coefficient of Variation 16.7 % Platelet Count 134 K/uL Mean Platelet Volume 10.5 fL Sodium Level 139 mmol/L Potassium Level 5.1 mmol/L Chloride Level 110 mmol/L Carbon Dioxide Level 24 mmol/L Anion Gap 5.0 mmol/L Blood Urea Nitrogen 32 mg/dl Creatinine 1.95 mg/dl Est Creatinine Clear Calc Drug Dose 23.4 ml/min Estimated GFR () 37.1 Estimated GFR (Non- 32.0 BUN/Creatinine Ratio 16.6 Random Glucose 87 mg/dl Calcium Level 8.4 mg/dl (Sally Cee, YSABEL) Assessment and Plan Patient is a 77 y/o male, with PMHx of HTN, HLD, tobacco abuse, who presented to the ED via EMS due to a fall. L hip fracture from mechanical fall: - Tylenol PRN, Oxycodone PRN, and IV Dilaudid PRN for pain management - Vitamin D significantly low at 5.6 - initiate supplementation - PT/OT once OK by orthopedics- will likely need placement - Orthopedics consulted, appreciate recs- plan for surgery this evening - Cardiology consulted for preop clearance, appreciate recs- diltiazem gtt reinitiated Increased lethargy - check abg now - likely dt sedatives administered last night: ativan, percocet, dilaudid New onset a.fib w/ RVR: cont on tele for cardiac monitoring - hr in 120s - Trop neg x 3 - O2 protocol, wean as tolerated- does NOT have O2 supplement at home - current sats adequate on 2 l - Cardiology on board - Cont Cardizem gtt - started on low dose BB however not able to take po meds dt lethargy. got 1 dose IV lopressor this am. - No anticoagulation at this time due to procedure - Obtain ECHO * Left ventricular systolic function is severely reduced. * The right ventricular systolic function is reduced as assessed by tricuspid annular plane systolic excursion (TAPSE) (TAPSE <1.6 cm). * The left atrium is borderline dilated. * Aortic valve sclerosis mild, without significant aortic valvular stenosis. * There is moderate to severe mitral regurgitation. * There is mild to moderate tricuspid regurgitation. * Right ventricular systolic pressure is elevated at 30-40mmHg. 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 - Follow PRP HTN: - Will hold Lisinopril 10 mg daily and Norvasc 5 mg daily due to IV Cardizem gtt per cards recs - IV Hydralazine PRN HLD: Continue Pravastatin 20 mg HS DVT prophylaxis: TEDs/SCDs; no chemical anticoagulation due to orthopedics procedure Code status: LEVEL V, DNR Dispo: From home, lives with - CM consulted; will consult PT/OT once OK by orthopedics (Sally Cee, YSABEL) Reviewed: Pt Seen/Exam by Me (Mirian Dumont MD) History Physician [place]eman supervision Note: I interviewed and examined the patient. Discussed with CORDELIA Cee and agree with findings and plan as documented in the note. Any exceptions or clarifications are listed here: Patient is a 77-year-old male with history of hypertension, hyperlipidemia, likely COPD, current smoker, and no regular primary care, admitted with mechanical fall with left hip fracture, found to be with new onset rapid atrial fibrillation, also with findings of bilateral pneumonia on chest x-ray. He reports some progressively worsening shortness of breath more so in the last few months, but has not noted any chest pain or heart palpitations. He has not been seen by a Dr. in approximately 1 year Today, the patient has had issues with rapid atrial fibrillation through the night and morning. He was unable to receive the p.o. metoprolol last night due to low blood pressure, and then could not take it this morning due to excessive sedation from opioids and benzodiazepine. He was restarted on diltiazem drip and the rates are coming down in the 120s. Urine output has been low likely secondary to poor cardiac output and tachycardia. I spoke with his at length on the phone today and explained all of his conditions as per the patient's request. They are aware that he is at increased risk for perioperative cardiovascular events. Vitals and telemetry reviewed Gen: Alert and awake, cachectic, lying flat on his back, NAD HEENT: anicteric sclerae, EOMI CV: Irregularly irregular, tachycardic, difficult to auscultate murmur Pulm: Diminished breath sounds throughout, scattered rhonchi, no crackles Abd: +BS soft NT ND no masses or hernias, Holly catheter in place Ext: no edema, 1 + DP pulses bilaterally, left hip with positive tenderness to palpation and mild ecchymosis Skin: no rashes, warm/dry Echo with biventricular systolic dysfunction, LVEF 20-25%, elevated right-sided pressures, and moderate to severe mitral regurgitation Patient is a 69-year-old male with history as above, here with left hip fracture new onset rapid atrial fibrillation, as well as new onset biventricular systolic CHF. Does not clinically seem to be volume overloaded, perhaps proBNP significantly elevated due to mitral regurgitation-discussed case with cardiology. It is impossible to know when his atrial fibrillation started as he has been asymptomatic, however he has noticed increased shortness of breath with exertion in the last several months. With biventricular systolic CHF, he may have ischemic disease, as well as right-sided failure from either left-sided heart failure or from pulmonary disease. -Plan for surgery today for hip repair-appreciate orthopedic surgery consultation -Will need anticoagulation started after surgery, possibly with a heparin drip and bridged to Coumadin given poor renal function -Continue diltiazem drip and wean off as able to and will start beta-myke after surgery -Appreciate cardiology consultation -Otherwise treatment for suspected pneumonia and suspected COPD as above- although with cachexia and long-term smoking, these infiltrates very well could be hiding a malignancy as well. Will need either CT of the chest to further clarify, or follow serial chest x-rays to resolution. -May end up needing diuretics postoperatively, but for now, with oliguria and no evidence of volume overload, will continue gentle fluids with normal saline at 50 ML's per hour while n.p.o. Documented By: Mirian Dumont (Mirian Dumont MD)
[2017-07-29] MEDS: METOPROLOL TARTRATE 25 MG TAB PO SCH ×2 (09:00→21:28)
[2017-07-29] MEDS ORDERED: METOPROLOL TARTRATE 1 MG/ML VIAL IV STA (09:23)
[2017-07-29] MEDS ORDERED: NURSING VERBAL MED ORDER ONE ×2 (09:30→11:30)
[2017-07-29] MEDS: AZITHROMYCIN IV 250 MG in DEXTROSE 5% 250ML 250 ML IV SCH (11:18)
[2017-07-29] MEDS ORDERED: DILTIAZEM HCL 5 MG/ML 5 ML VIAL ONE (11:30)
[2017-07-29] MEDS ORDERED: DILTIAZEM HCL 5 MG/ML 5 ML VIAL BOLUS/OMNI IV STA (11:36)
[2017-07-29] MEDS: DILTIAZEM HCL INJ 125 MG in DEXTROSE 5% 100ML IV PRN ×3 (11:38→18:18)
[2017-07-29] MEDS: CEFTRIAXONE SOD INJ 1 GM in DEXTROSE 5% ADD-VANTAGE 50ML 50 ML IV SCH (13:05)
--- NOTE | 2017-07-29 13:08 | Cardiology Follow-Up ---
Subjective Date of Service: Jul 29, 2017. Pt evaluation today including: conversation w/ patient, physical exam, chart review, lab review, review of studies, review of inpatient medication list History of Present Illness This afternoon the patient complained of some pain at the site of his fracture. He was hard of hearing and also appeared to be confused at times. He denied other complaints. He did not have any questions. Social History Smoking Status: Current Every Day Smoker History of Alcohol Use: Yes Review of Systems He denies any recent fevers or chills. He states that he has been eating well and not losing weight. In fact he states he is at his ideal weight. Objective Vital Signs Past 12 Hours Date Time Temp Pulse Resp B/P (MAP) Pulse Ox O2 Delivery O2 Flow Rate FiO2 07/29/17 12:00 98 Nasal Cannula 2.0 07/29/17 11:30 36.4 133 24 127/79 (95) 93 2.0 07/29/17 09:37 140 130/68 07/29/17 09:32 131 07/29/17 08:15 36.4 119 16 130/86 (101) 100 2.0 07/29/17 08:00 98 Nasal Cannula 2.0 07/29/17 07:17 60 18 98 Nasal Cannula 2.0 07/29/17 04:00 98 Nasal Cannula 2.0 07/29/17 03:22 36.4 107 18 113/80 (91) 98 07/29/17 01:47 109 20 100 Nasal Cannula 2.0 Last Recorded Weight-Kilograms: 53.100 Physical Exam The patient is alert . He seems somewhat more confused this afternoon. He answered all questions appropriately. He appeared cachectic and thin HEENT: Pupils are equal and reactive to light and accommodation. Extraocular movements are intact. The sclerae are anicteric. Neuro: Cranial nerves intact Neck: Patient's neck is supple. He has palpable carotid pulses bilaterally without bruits on auscultation. There is no evidence of jugular venous distention. The thyroid is not enlarged. Lungs: Clear to auscultation bilaterally. He has good air movement without use of accessory muscles. No rales wheezes or rhonchi. Cardiac: Heart demonstrates an irregular rate and rhythm. Normal S1 and S2. Holosystolic murmur of variable intensity heard at the axilla. Pulses: The patient has palpable radial pulses bilaterally that are equal in intensity Extremities: There was no evidence of hypoperfusion. There is no cyanosis or clubbing. There is no edema. Skin: I did not appreciate any rashes on examination today. Data Laboratory Results: Last 24 Hours Test 07/28/17 16:20 07/28/17 16:43 07/29/17 00:20 07/29/17 00:29 Creatine Kinase MB Ratio Creatine Kinase MB 2.2 ng/ml 1.7 ng/ml Troponin I 0.024 ng/ml 0.022 ng/ml Test 07/29/17 06:51 White Blood Count 7.17 K/uL Red Blood Count 4.13 M/uL Hemoglobin 11.9 g/dL Hematocrit 36.1 % Mean Corpuscular Volume 87.4 fL Mean Corpuscular Hemoglobin 28.8 pg Mean Corpuscular Hemoglobin Concent 33.0 g/dl RDW Standard Deviation 52.9 fL RDW Coefficient of Variation 16.7 % Platelet Count 134 K/uL Mean Platelet Volume 10.5 fL Sodium Level 139 mmol/L Potassium Level 5.1 mmol/L Chloride Level 110 mmol/L Carbon Dioxide Level 24 mmol/L Anion Gap 5.0 mmol/L Blood Urea Nitrogen 32 mg/dl Creatinine 1.95 mg/dl Est Creatinine Clear Calc Drug Dose 23.4 ml/min Estimated GFR () 37.1 Estimated GFR (Non- 32.0 BUN/Creatinine Ratio 16.6 Random Glucose 87 mg/dl Calcium Level 8.4 mg/dl EKG: Atrial fibrillation Telemetry reviewed: Atrial fibrillation with rapid ventricular response Assessment and Plan 1. Left ventricular systolic failure: He seems well compensated yesterday but did complain of some worsening breathing this afternoon. He is also requiring slightly more oxygen. He is positive over L of fluid 24 hours. Given his known biventricular failure I would be cautious regarding more fluid administration. He is likely to do some blood during surgery which may reduce his overall intravascular congestion. I would have low threshold for diuretics at this point. Beta-myke will be initiated post surgery. Ideally he would be on an ERIK-inhibitor but his renal function is poor. Blood pressure is also relatively low. He likely will need some form of daily diuretic. 2. Atrial fibrillation: Unclear duration. The patient was ordered metoprolol yesterday but he has not actually received any of that medication. It seems his diltiazem infusion was restarted today. Subsequent to his surgery re- initiation of beta-myke therapy would be preferable. Long-term anticoagulation can be discussed subsequent to his surgery. His renal function is compromised. Warfarin may be the best option. 3. Valvular heart disease: Patient appears to have moderate to severe mitral regurgitation. This likely to require some additional evaluation in order to gauge the severity. However, with his reduced LV systolic function he is not a good candidate for any type of operative intervention.
[2017-07-29] MEDS: SODIUM CHLORIDE 0.9% 1000ML 1,000 ML IV SCH (14:45)
--- NOTE | 2017-07-29 16:07 | History & Physical Bridge Note ---
H&P Re-Evaluation Bridge Note: I have examined the patient, reviewed the History & Physical and in the interval since the performance of the History & Physical I have noted the following changes of clinical significance: No changes noted
[2017-07-29] MEDS: PRAVASTATIN SOD 20 MG TAB PO SCH (17:00)
--- NOTE | 2017-07-29 19:07 | Anesthesiology Progress Note ---
Anesthesia Progress Note Date of Service Jul 29, 2017. Progress Notes The patient was scheduled for L troch nail today by Dr. Bonds. He has a complex medical history with significant cardiac pathology including EF 20-25%, severe MR, and afib with RVR. He is on a diltiazem gtt but has not been well rate controlled with HR in the 110s. Due to his high cardiac risk, the patient' s surgery will be delayed until tomorrow to be done after he has better heart rate control. I spoke to Dr. Dumont about the patient and the importance of his heart rate being controlled. Dr. Bonds is aware and agrees with the plan. He will allow the patient to have dinner tonight. I also spoke to Dr. Rubio about the patient.
[2017-07-29] MEDS: DOCUSATE SODIUM/SENNA 50/8.6MG TAB PO SCH (21:27)
[2017-07-29] MEDS: HYDROmorphone INJ 0.5 MG/0.5 ML SYR IV PRN (21:27)
[2017-07-30] VITALS (16 sets, daily range): BP systolic 99–129; BP diastolic 62–80; PULSE 83–115; TEMP 34.4–37.1; O2SAT 92–100
[2017-07-30] MEDS: IPRATROPIUM BROMIDE NEB SOLN 0.02% 2.5 ML VIAL INH SCH ×4 (02:21→19:04)
[2017-07-30] MEDS: LEVALBUTEROL 1.25MG/0.5ML NEB INH SCH ×4 (02:21→19:04)
[2017-07-30] MEDS: HYDROmorphone INJ 0.5 MG/0.5 ML SYR IV PRN (03:26)
[2017-07-30] MEDS ORDERED: CEFAZOLIN 2000MG IV PUSH 15 ML IV SCH (06:00)
[2017-07-30 06:41] LABS: HEMOGLOBIN 11.1 g/dL (14.0-18.0); MEAN CELL VOLUME 89.2 fL (80-100); MEAN CORPUSCULAR HEMOGLOBIN 29.1 pg (25-34); MEAN CORPUSCULAR HGB CONC 32.6 g/dl (32-36); MEAN PLATELET VOLUME 10.7 fL (7.4-10.4); PLATELET COUNT 127 K/uL (130-400); RED CELL DISTRIBUTION WIDTH SD 55.6 fL (36.4-46.3); WHITE BLOOD COUNT 6.34 K/uL (4.8-10.8)
[2017-07-30 07:21] LABS: CALCIUM 8.3 mg/dl (8.5-10.1); CREATININE 1.95 mg/dl (0.60-1.40); POTASSIUM 5.1 mmol/L (3.5-5.1)
[2017-07-30] MEDS: METOPROLOL TARTRATE 25 MG TAB PO SCH ×2 (07:58→21:01)
--- NOTE | 2017-07-30 08:27 | Hospitalist Progress Note ---
Hospitalist Progress Note Date of Service July 30, 2017. (Sally Cee PA-C) Subjective Pt evaluation today including: conversation w/ patient, physical exam, chart review, lab review, review of studies Pain: L hip pain - well controlled PO Intake: NPO Voiding: holly catheter in place The patient was seen and examined this morning. Pt reports doing ok today. He is able to freely communicate today without any issues and is alert and oriented. He reports mild L hip pain is well controlled and is hoping to "get it over with" as soon as possible in regards to hip surgery. He admits his cough is still present and is bringing up yellow sputum currently , he denies any fever, chills or sweats and does not feel short of breath at rest. He is agreeable to incentive spirometry/flutter therapy. Additional Comments: Constitutional: No fever, sweats or chills Eyes: No diplopia, no worsening or blurred vision ENT: normal hearing, no trouble swallowing Respiratory: No cough, sputum, dyspnea at rest or on exertion Cardiovascular: No chest pain, tightness or palpitations Abdomen: No pain, nausea, vomiting, diarrhea or constipation Musculoskeletal: See HPI. Neurologic: No weakness, numbness/tingling, or balance problems Psychiatric: No anxiety or depression Skin: No rash or itch (Sally Cee PA-C) Objective Vital Signs Date Time Temp Pulse Resp B/P (MAP) Pulse Ox O2 Delivery O2 Flow Rate FiO2 07/30/17 08:00 98 Nasal Cannula 2.0 07/30/17 07:05 37.1 88 16 114/74 (87) 97 Nasal Cannula 3.0 07/30/17 07:05 98 18 97 Nasal Cannula 3.0 07/30/17 04:00 98 Nasal Cannula 2.0 07/30/17 03:45 36.9 98 20 108/71 (83) 100 Nasal Cannula 2.0 07/30/17 02:21 89 18 98 Nasal Cannula 3.0 07/30/17 00:01 99 Nasal Cannula 2.0 07/29/17 23:43 36.6 90 16 96/67 (77) 98 Nasal Cannula 2.0 07/29/17 20:00 99 Nasal Cannula 3.0 07/29/17 19:41 50 18 99 Nasal Cannula 3.0 07/29/17 19:41 36.5 97 22 133/69 (90) 99 Nasal Cannula 3.0 07/29/17 16:00 98 Nasal Cannula 2.0 07/29/17 15:49 36.2 107 20 119/71 (87) 99 Nasal Cannula 3.0 07/29/17 14:12 116 22 97 Nasal Cannula 3.0 07/29/17 12:00 98 Nasal Cannula 2.0 07/29/17 11:30 36.4 133 24 127/79 (95) 93 2.0 07/29/17 09:37 140 130/68 07/29/17 09:32 131 (Sally Cee PA-C) Physical Exam Notes: General Appearance: WD/WN, no apparent distress, + thin (cachetic), + pertinent finding Eyes: PERRL, EOMI, + pertinent finding (MMM, endentulous) ENT: pharynx normal, + pertinent finding (hard of hearing) Neck: supple, no JVD Respiratory/Chest: lungs clear, no respiratory distress Cardiovascular: + systolic murmur (holosystolic), + irregularly irregular ( rates in low 100s) Abdomen: normal bowel sounds, non tender, soft, + pertinent finding (Holly catheter draining light yellow urine) Extremities: non-tender, no calf tenderness, + pertinent finding (LLE internally rotated and shortened, mild pitting edema in bilateral ankles) Neurologic/Psychiatric: alert, normal mood/affect, oriented x 3 Skin: normal color, warm/dry (Sally Cee PA-C) Laboratory Results Last 24 Hours Test 07/29/17 14:37 07/30/17 06:24 Arterial Blood pH 7.41 Arterial Blood Partial Pressure CO2 37 mmHg Arterial Blood Partial Pressure O2 82 mm/Hg Arterial Blood HCO3 24 mmol/L Arterial Blood Oxygen Saturation 96.0 % Arterial Blood Base Excess -0.8 mEq/L Arterial Blood Gas Delivery 3L Praneeth Test POS White Blood Count 6.34 K/uL Red Blood Count 3.81 M/uL Hemoglobin 11.1 g/dL Hematocrit 34.0 % Mean Corpuscular Volume 89.2 fL Mean Corpuscular Hemoglobin 29.1 pg Mean Corpuscular Hemoglobin Concent 32.6 g/dl RDW Standard Deviation 55.6 fL RDW Coefficient of Variation 17.0 % Platelet Count 127 K/uL Mean Platelet Volume 10.7 fL Sodium Level 141 mmol/L Potassium Level 5.1 mmol/L Chloride Level 112 mmol/L Carbon Dioxide Level 25 mmol/L Anion Gap 4.0 mmol/L Blood Urea Nitrogen 40 mg/dl Creatinine 1.95 mg/dl Est Creatinine Clear Calc Drug Dose 23.3 ml/min Estimated GFR () 37.1 Estimated GFR (Non- 32.0 BUN/Creatinine Ratio 20.7 Random Glucose 91 mg/dl Calcium Level 8.3 mg/dl Magnesium Level 1.9 mg/dl (Sally Cee, YSABEL) Assessment and Plan Patient is a 77 y/o male, with PMHx of HTN, HLD, tobacco abuse, who presented to the ED via EMS due to a fall. L hip fracture from mechanical fall: - Tylenol PRN, Oxycodone PRN, and IV Dilaudid PRN for pain management - Vitamin D significantly low at 5.6 - initiate supplementation - PT/OT once OK by orthopedics- will likely need placement - Orthopedics consulted, appreciate recs Surgery cancelled last night due to afib with HR> 110 despite cardizem gtt. Planned surgical procedure for today since rates are much better and sitting in the low 100s. - Cardiology consulted for preop clearance, appreciate recs- diltiazem gtt remains on board Increased lethargy - ABG was obtained 07/29 and was wnl. - likely dt sedatives administered overnight on 07/28: ativan, percocet, dilaudid - much improved/resolved at this point. New onset a.fib w/ RVR: cont on tele for cardiac monitoring - hr in 120s - Trop neg x 3 - O2 protocol, wean as tolerated- does NOT have O2 supplement at home - current sats adequate on 2 l - Cardiology on board - Cont Cardizem gtt - started on low dose BB however not able to take po meds dt lethargy. got 1 dose IV lopressor on 07/29 with minimal improvement. - No anticoagulation at this time due to procedure - Obtain ECHO * Left ventricular systolic function is severely reduced. * The right ventricular systolic function is reduced as assessed by tricuspid annular plane systolic excursion (TAPSE) (TAPSE <1.6 cm). * The left atrium is borderline dilated. * Aortic valve sclerosis mild, without significant aortic valvular stenosis. * There is moderate to severe mitral regurgitation. * There is mild to moderate tricuspid regurgitation. * Right ventricular systolic pressure is elevated at 30-40mmHg. - Elevated BNP- does not appear clinically to be fluid overloaded, CXR w/out evidence of CHF - Stop IVFs today. 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 representative in 2016 at 1.5: Darkened urine/ oliguria - Cr and BUN unchanged overnight - Avoid nephrotoxic agents and renally dose medications as appropriate - U/Os are improved in past 24 hours - urine appears clear and yellow, not darkened/bloody/muddy colored anymore - Stop fluids today, NPO for surg today - Follow PRP HTN: - Will hold Lisinopril 10 mg daily and Norvasc 5 mg daily due to IV Cardizem gtt per cards recs - IV Hydralazine PRN HLD: Continue Pravastatin 20 mg HS DVT prophylaxis: TEDs/SCDs; no chemical anticoagulation due to orthopedics procedure Code status: LEVEL V, DNR Dispo: From home, lives with - CM consulted; will consult PT/OT once OK by orthopedics (Sally Cee PA-C) Reviewed: Pt Seen/Exam by Me (Mirian Dumont MD) History Physician [employer] supervision Note: I interviewed and examined the patient. Discussed with CORDELIA Cee and agree with findings and plan as documented in the note. Any exceptions or clarifications are listed here: Patient is a 77-year-old male with history of hypertension, hyperlipidemia, likely COPD, current smoker, and no regular primary care, admitted with mechanical fall with left hip fracture, found to be with new onset rapid atrial fibrillation, also with findings of bilateral pneumonia on chest x-ray. He reports some progressively worsening shortness of breath more so in the last few months, but has not noted any chest pain or heart palpitations. He has not been seen by a Dr. in approximately 1 year Heart rate controlled today in 90s-low 100s and ready for surgery. Discussed case with Ortho today. Pt has pain in hip, but no CP or SOB. UOP has increased today. Vitals and telemetry reviewed Gen: Alert and awake, cachectic, lying flat on his back, NAD HEENT: anicteric sclerae, EOMI CV: Irregularly irregular, normal rate, difficult to auscultate murmur Pulm: Diminished breath sounds throughout, scattered rhonchi, no crackles Abd: +BS soft NT ND no masses or hernias, Holly catheter in place Ext: no edema, 1 + DP pulses bilaterally, left hip with positive tenderness to palpation and mild ecchymosis, LLE shortened and externally rotated Skin: no rashes, warm/dry Echo with biventricular systolic dysfunction, LVEF 20-25%, elevated right-sided pressures, and moderate to severe mitral regurgitation Patient is a 69-year-old male with history as above, here with left hip fracture new onset rapid atrial fibrillation, as well as new onset biventricular systolic CHF. Does not clinically seem to be volume overloaded, perhaps proBNP significantly elevated due to mitral regurgitation-discussed case with cardiology. It is impossible to know when his atrial fibrillation started as he has been asymptomatic, however he has noticed increased shortness of breath with exertion in the last several months. With biventricular systolic CHF, he may have ischemic disease, as well as right-sided failure from either left-sided heart failure or from pulmonary disease. -Plan for surgery today for hip repair-appreciate orthopedic surgery consultation -Will need anticoagulation started after surgery, d/w Ortho PA today who said coumadin is ok for today, but no bridging recommended yet-can consider heparin gtt possibly as a bridge tomorrow if ok with Ortho -start coumadin 4mg daily todya, but may need to go down on dose for tomorrow given very low body weight and is on antibiotics -follow PT/INR in AM -Continue diltiazem drip and wean off as able to -continue metoprolol 12.5mg po bid -Appreciate cardiology consultation -Otherwise treatment for suspected pneumonia and suspected COPD as above- although with cachexia and long-term smoking, these infiltrates very well could be hiding a malignancy as well. Will need either CT of the chest to further clarify, or follow serial chest x-rays to resolution. -May end up needing diuretics postoperatively, but for now, with oliguria and no evidence of volume overload, will continue gentle fluids with normal saline at 50 ML's per hour -check BMP, Magnesium in AM, CBC as well to assess for blood loss Documented By: Mirian Dumont (Mirian Dumont MD)
[2017-07-30] MEDS ORDERED: MAGNESIUM SULFATE 1GM / D5W 100 ML IV STA (08:52)
[2017-07-30] MEDS: SODIUM CHLORIDE 0.9% 1000ML 1,000 ML IV SCH (11:13)
[2017-07-30] MEDS ORDERED: FENTANYL CITRATE INJ 50 MCG/1 ML 2 ML VIAL ONE (12:05)
[2017-07-30] MEDS: AZITHROMYCIN IV 250 MG in DEXTROSE 5% 250ML 250 ML IV SCH (12:05)
[2017-07-30] MEDS ORDERED: MIDAZOLAM HCL 1 MG/ML 2ML VIAL ONE (12:05)
[2017-07-30] MEDS ORDERED: PROPOFOL IV EMULSION 10 MG/ML 20 ML VIAL ONE (12:06)
[2017-07-30] MEDS ORDERED: ONDANSETRON INJ 2 MG/ML 2 ML VIAL ONE (12:06)
[2017-07-30] MEDS ORDERED: LIDOCAINE HCL 2% 2 ML VIAL (20MG/ML) ONE (12:06)
[2017-07-30] MEDS ORDERED: BUPIVACAINE 0.5 % 5 MG/1 ML PF 10ML VIAL ONE (13:24)
[2017-07-30] MEDS ORDERED: CEFAZOLIN SOD 2000MG/15 ML IV PUSH ONE (13:26)
[2017-07-30] MEDS ORDERED: KETAMINE HCL INJ 50 MG/ML 10 ML VIAL ONE (13:31)
[2017-07-30] MEDS ORDERED: PHENYLEPHRINE 100MCG/ML 5ML SYR ONE (14:41)
[2017-07-30] MEDS ORDERED: CISATRACURIUM BESYLATE IV SOLN 2 MG/ML 10 ML VIAL ONE (14:41)
[2017-07-30] MEDS ORDERED: BUPIVACAINE/EPINEPHRINE 0.5% MPF 1:200,000 30 ML VIAL INJ ONE (14:59)
--- NOTE | 2017-07-30 15:13 | [facility] Post Operative Brief Note ---
Immediate Operative Summary Operative Date July 30, 2017. Pre-Operative Diagnosis Intertrochanteric fracture Left Hip Post-Operative Diagnosis Intertrochanteric fracture Left Hip Procedure(s) Performed Trochanteric Nail left Femoral Hip Fracture Surgeon Dr Jas Ledesma [employer] Surgeon(s) Jermaine Pina PA-C Estimated Blood Loss 100cc Findings Consistent with Post-Op Diagnosis Fluids (cc crystalloids) 300 cc Specimens None as per surgeon Drains None Anesthesia Type General Complication(s) none Disposition Accompanied Pt To Recover: no Disposition: Recovery Room / PACU
[2017-07-30] MEDS ORDERED: CEFAZOLIN IV 1,000 MG in DEXTROSE 5% 50ML 50 ML IV SCH (15:15)
[2017-07-30] MEDS ORDERED: BISACODYL 10 MG SUPP PR PRN (15:15)
[2017-07-30] MEDS ORDERED: MAGNESIUM HYDROXIDE SUSP 30 ML UDC PO PRN (15:15)
--- NOTE | 2017-07-30 15:23 | DIAGNOSTIC IMAGING REPORT ---
INTRAOPERATIVE RADIOGRAPHS CLINICAL HISTORY: Open reduction and internal fixation of the left femur. Fluoroscopy time: 73 seconds. FINDINGS: 4 spot fluoroscopic views of the left femur are correlated with radiographs dated 07/28/2017. Intertrochanteric and intramedullary nails have been placed, transfixing an intertrochanteric fracture. Near-anatomic alignment is maintained. A single cortical lag screw transfixes the distal aspect of the intramedullary nail. IMPRESSION: Intraoperative images from open reduction and internal fixation of the left femur as above. Electronically signed by: Ye Carrillo M.D. 07/30/2017 3:21 PM Dictated Date/Time: 07/30/2017 3:20 PM
[2017-07-30] MEDS ORDERED: NALOXONE HCL 0.4 MG/1 ML VIAL/CARP IV PRN (15:30)
[2017-07-30] MEDS ORDERED: ATROPINE SULFATE 0.1 MG/ML 5ML SYR IV PRN (15:30)
[2017-07-30] MEDS ORDERED: ONDANSETRON INJ 2 MG/ML 2 ML VIAL IV PRN (15:30)
[2017-07-30] MEDS ORDERED: FLUMAZENIL 0.1 MG/1 ML 10 ML VIAL IV PRN (15:30)
[2017-07-30] MEDS ORDERED: FENTANYL CITRATE INJ 50 MCG/1 ML 2 ML VIAL IV PRN (15:30)
[2017-07-30] MEDS ORDERED: LABETALOL HCL IV 5 MG/ML 20ML IV PRN (15:30)
[2017-07-30] MEDS ORDERED: EpHEDrine SULFATE INJ 50 MG/ML AMP IV PRN (15:30)
[2017-07-30] MEDS ORDERED: PROMETHAZINE HCL INJ 12.5 MG in SODIUM CHLORIDE 0.9% 50ML 50 ML IV PRN (15:30)
[2017-07-30 15:54] LABS: HEMATOCRIT 33.7 % (42-52)
--- NOTE | 2017-07-30 16:12 | Anesthesiology Progress Note ---
Anesthesia Post Op Note Date & Time July 30, 2017 at 16:11 Vital Signs Pain Intensity: 0 Vital Signs Past 12 Hours Date Time Temp Pulse Resp B/P (MAP) Pulse Ox O2 Delivery O2 Flow Rate FiO2 07/30/17 16:05 116 19 122/80 93 Nasal Cannula 2 07/30/17 15:55 100 17 114/79 99 Nasal Cannula 2 07/30/17 15:45 93 22 122/81 99 Oxymask 10 07/30/17 15:35 114 23 107/80 100 Oxymask 10 07/30/17 15:25 117 19 106/77 100 Oxymask 10 07/30/17 15:18 36.3 104 14 103/80 100 Oxymask 10 07/30/17 12:00 98 Nasal Cannula 2.0 07/30/17 11:02 36.9 93 20 109/78 (88) 98 3.0 07/30/17 08:00 98 Nasal Cannula 2.0 07/30/17 07:05 37.1 88 16 114/74 (87) 97 Nasal Cannula 3.0 07/30/17 07:05 98 18 97 Nasal Cannula 3.0 Notes Mental Status: alert / awake / arousable, participated in evaluation Pt Amnestic to Procedure: Yes Nausea / Vomiting: adequately controlled Pain: adequately controlled Airway Patency, RR, SpO2: stable & adequate BP & HR: stable & adequate Hydration State: stable & adequate Anesthetic Complications: no major complications apparent
[2017-07-30] MEDS: PRAVASTATIN SOD 20 MG TAB PO SCH (16:45)
--- NOTE | 2017-07-30 16:57 | Cardiology Follow-Up ---
Subjective Date of Service: July 30, 2017. Pt evaluation today including: conversation w/ patient, physical exam, chart review, lab review, review of studies, review of inpatient medication list, conversation w/ attending History of Present Illness This morning the patient was much more alert. He denied pain currently. He he denies any symptoms of chest discomfort or breathing difficulty. He is not currently aware of any palpitations.. Social History Smoking Status: Current Every Day Smoker History of Alcohol Use: Yes Review of Systems He denies any recent fevers or chills. He states that he has been eating well and not losing weight. In fact he states he is at his ideal weight. Objective Vital Signs Past 12 Hours Date Time Temp Pulse Resp B/P (MAP) Pulse Ox O2 Delivery O2 Flow Rate FiO2 07/30/17 16:25 92 17 103/80 97 Nasal Cannula 2 07/30/17 16:15 36.3 101 21 124/80 95 Nasal Cannula 2 07/30/17 16:05 116 19 122/80 93 Nasal Cannula 2 07/30/17 15:55 100 17 114/79 99 Nasal Cannula 2 07/30/17 15:45 93 22 122/81 99 Oxymask 10 07/30/17 15:35 114 23 107/80 100 Oxymask 10 07/30/17 15:25 117 19 106/77 100 Oxymask 10 07/30/17 15:18 36.3 104 14 103/80 100 Oxymask 10 07/30/17 12:00 98 Nasal Cannula 2.0 07/30/17 11:02 36.9 93 20 109/78 (88) 98 3.0 07/30/17 08:00 98 Nasal Cannula 2.0 07/30/17 07:05 37.1 88 16 114/74 (87) 97 Nasal Cannula 3.0 07/30/17 07:05 98 18 97 Nasal Cannula 3.0 Last Recorded Weight-Kilograms: 52.700 Intake & Output 8-Hour Column 07/30/17 07/30/17 07/31/17 15:59 23:59 07:59 Intake Total 300 ml 75 ml Output Total 300 ml 200 ml Balance 0 ml -125 ml 24-Hour Column 07/31/17 07:59 Intake Total 375 ml Output Total 500 ml Balance -125 ml Physical Exam The patient is alert . He was oriented answer all questions appropriately. He appeared cachectic and thin HEENT: Pupils are equal and reactive to light and accommodation. Extraocular movements are intact. The sclerae are anicteric. Neuro: Cranial nerves intact Neck: Patient's neck is supple. He has palpable carotid pulses bilaterally without bruits on auscultation. There is no evidence of jugular venous distention. The thyroid is not enlarged. Lungs: Clear to auscultation bilaterally. He has good air movement without use of accessory muscles. No rales wheezes or rhonchi. Cardiac: Heart demonstrates an irregular rate and rhythm. Normal S1 and S2. Holosystolic murmur of variable intensity heard at the axilla. Pulses: The patient has palpable radial pulses bilaterally that are equal in intensity Extremities: There was no evidence of hypoperfusion. There is no cyanosis or clubbing. There is no edema. Skin: I did not appreciate any rashes on examination today. Data Laboratory Results: Last 24 Hours Test 07/30/17 06:24 07/30/17 15:47 White Blood Count 6.34 K/uL Red Blood Count 3.81 M/uL Hemoglobin 11.1 g/dL 11.0 g/dL Hematocrit 34.0 % 33.7 % Mean Corpuscular Volume 89.2 fL Mean Corpuscular Hemoglobin 29.1 pg Mean Corpuscular Hemoglobin Concent 32.6 g/dl RDW Standard Deviation 55.6 fL RDW Coefficient of Variation 17.0 % Platelet Count 127 K/uL Mean Platelet Volume 10.7 fL Sodium Level 141 mmol/L Potassium Level 5.1 mmol/L Chloride Level 112 mmol/L Carbon Dioxide Level 25 mmol/L Anion Gap 4.0 mmol/L Blood Urea Nitrogen 40 mg/dl Creatinine 1.95 mg/dl Est Creatinine Clear Calc Drug Dose 23.3 ml/min Estimated GFR () 37.1 Estimated GFR (Non- 32.0 BUN/Creatinine Ratio 20.7 Random Glucose 91 mg/dl Calcium Level 8.3 mg/dl Magnesium Level 1.9 mg/dl Telemetry reviewed: He seems to have reasonable control of his heart rate on the diltiazem infusion. Assessment and Plan 1. Left ventricular systolic failure: Currently well compensated but will need to monitor his volume status quite closely in the perioperative period. I would have low threshold for administration of diuretics. Patient has been started on beta-blockade and is chronically on Kam inhibition. At some point ischemic evaluation may be of value, but this can be deferred to the outpatient setting in the absence of symptoms. 2. Atrial fibrillation: Unclear duration. Warfarin will be the optimal rate control medicine given his cardiomyopathy. He has not gotten any due to his impending surgery. This can be started in the postoperative period. Hopefully we can wean him from his diltiazem infusion. Initiating warfarin therapy seems like the best option for long-term stroke risk reduction. 3. Valvular heart disease: Patient appears to have moderate to severe mitral regurgitation. This likely to require some additional evaluation in order to gauge the severity. However, with his reduced LV systolic function he is not a good candidate for any type of operative intervention.
[2017-07-30] MEDS: DOCUSATE SODIUM/SENNA 50/8.6MG TAB PO SCH (21:00)
[2017-07-30] MEDS ORDERED: DOCUSATE SODIUM/SENNA 50/8.6MG TAB PO SCH (21:00)
[2017-07-30] MEDS: CEFAZOLIN IV 1,000 MG in SYRINGE 0 ML IV SCH (21:01)
--- NOTE | 2017-07-30 22:37 | OPERATIVE REPORT ---
DATE OF OPERATION: 07/30/2017 SURGEON: Jas Ledesma MD REHABILITATION COUNSELOR: CORDELIA Bowen PREOPERATIVE DIAGNOSIS: Left intertrochanteric hip fracture. POSTOPERATIVE DIAGNOSIS: Same. PROCEDURE PERFORMED: Left long cephalomedullary nailing of left intertrochanteric hip fracture. COMPLICATIONS: None. ESTIMATED BLOOD LOSS: 100 mL. FLUID REPLACEMENT: 300 mL. ANESTHESIA: General. SPECIMENS: None. OPERATIVE INDICATIONS: Patient is a 77-year-old gentleman with several significant medical comorbidities who sustained a fall 2 days ago. He was brought to Emergency Room where x-rays revealed intertrochanteric hip fracture. He was admitted to the medicine service and medically optimized. He was found to be in atrial fibrillation and also significant cardiac disease with a limited ejection fraction. Patient was medically optimized and indicated for surgical treatment. OPERATIVE IMPLANTS: Operative implants consisted of, 1. A Synthes left 380 x 11 mm long trochanteric nail. 2. A 100 mm helical blade. 3. A 5 x 44 mm distal interlocking screw. OPERATIVE PROCEDURE: Patient taken to the operating room, identified, and placed in the operating table in supine position. All contact areas were appropriately padded. IV antibiotics were provided by anesthesia team. A general anesthetic was implemented by the anesthesia team. Patient was then placed on the fracture table. The left leg was placed in boot traction. The right leg was placed in a well leg wilhelm. I applied a little longitudinal traction and internally rotated the foot so it pointed to the ceiling. X-ray was brought in. Fracture was anatomically aligned. The left hip and leg were then scrubbed with Hibiclens and prepped with ChloraPrep and draped in the usual sterile fashion. A curvilinear incision was made just proximal to the tip of the greater trochanter. Sharp dissection was carried through the subcutaneous tissue down to the level of gluteal fascia. The gluteal fascia was incised longitudinally in line with the skin incision. The guidewire was then placed just lateral to the tip of the trochanter and in line with the IM canal in both the AP and lateral planes. It was advanced down the IM canal. This was overreamed with a 17 mm reamer. The guidewire was removed. A ball tipped guidewire was placed. I then measured for nail length and a 380 mm nail was selected. I did place a 12 mm reamer over the guidewire and got no chatter. A 380 mm x 11 mm left long trochanteric nail was then placed over the guidewire and advanced down the IM canal. It was tapped into position. The lateral aiming arm was attached. A stab incision was made and the lateral aiming arm was advanced to the lateral aspect of the femur. Guidewire was placed in the central aspect of the femoral head and neck in both the AP and lateral planes. This was measured. A 100 mm helical blade was selected. The cortical drill was used to breach the cortex. The triple reamer was set at 100. I then overreamed the guidewire. A 100 mm helical blade was placed. The proximal set screw was tightened. The lateral aiming arm was removed and some final x-rays were obtained. Attention was then drawn to distal interlocking. Using the perfect [place] technique, I obtained a perfect [place] of the dynamic distal interlocking hole. A stab incision was made. I drilled across this and then placed a 5 mm x 44 mm distal interlocking screw. Attention was then drawn toward closing. All wounds were irrigated with copious amounts of normal saline. I did inject locally with 30 mL of 0.5% Marcaine with epinephrine. The gluteal fascia and the IT band fascia were then closed with #1 Vicryl suture in a running fashion. The subcutaneous tissues of all wounds were closed with 2-0 Dexon suture in a buried interrupted fashion. Skin was closed with skin fab. Leg was then cleaned and dried and a sterile dressing of Xeroform, 4 x 4, Abd pad and foam tape. The patient was then taken off the fracture table and transferred to recovery room in stable condition. The patient tolerated the procedure well with no complications. All needle and sponge counts were correct at the end of the operation. I attest to the content of the Intraoperative Record and any orders documented therein. Any exceptions are noted below. MARINO
[2017-07-30] MEDS ORDERED: WARFARIN SOD 4 MG TAB PO ONE (22:45)
[2017-07-31] VITALS (14 sets, daily range): BP systolic 96–121; BP diastolic 61–78; PULSE 81–100; TEMP 36.4–36.8; O2SAT 92–100
[2017-07-31] MEDS: IPRATROPIUM BROMIDE NEB SOLN 0.02% 2.5 ML VIAL INH SCH ×4 (01:53→18:54)
[2017-07-31] MEDS: LEVALBUTEROL 1.25MG/0.5ML NEB INH SCH ×4 (01:53→18:54)
[2017-07-31] MEDS: CEFAZOLIN IV 1,000 MG in SYRINGE 0 ML IV SCH (05:39)
[2017-07-31] MEDS ORDERED: FUROSEMIDE INJ 20 MG in SYRINGE 0 ML IV ONE ×2 (06:00→16:00)
[2017-07-31] MEDS: SODIUM CHLORIDE 0.9% 1000ML 1,000 ML IV SCH (06:12)
[2017-07-31 06:47] LABS: HEMATOCRIT 32.8 % (42-52); HEMOGLOBIN 10.6 g/dL (14.0-18.0); MEAN CELL VOLUME 89.9 fL (80-100); MEAN CORPUSCULAR HGB CONC 32.3 g/dl (32-36); MEAN PLATELET VOLUME 11.3 fL (7.4-10.4); PLATELET COUNT 130 K/uL (130-400); RED CELL DISTRIBUTION WIDTH CV 17.1 % (11.5-14.5); RED CELL DISTRIBUTION WIDTH SD 55.6 fL (36.4-46.3); WHITE BLOOD COUNT 5.98 K/uL (4.8-10.8)
[2017-07-31 07:06] LABS: INR 1.2 (0.9-1.1)
--- NOTE | 2017-07-31 07:11 | DIAGNOSTIC IMAGING REPORT ---
CHEST ONE VIEW PORTABLE CLINICAL HISTORY: f/u PNA pneumonia COMPARISON STUDY: 07/28/2017 FINDINGS: Mixed findings. Slight improvement in infiltrative changes right apex. Slightly progressive bibasilar infiltrative change of the may relate to a component of congestive failure. Chronic interstitial fibrosis is again noted bilaterally. IMPRESSION: 1. Mixed findings. 2. Improving right apical infiltrate. 3. Slightly progressive components of congestive failure with slightly progressive bibasilar infiltrative change The above report was generated using voice recognition software. It may contain grammatical, syntax or spelling errors. Electronically signed by: Sebastian Lemon M.D. 07/31/2017 7:10 AM Dictated Date/Time: 07/31/2017 7:07 AM
[2017-07-31 07:24] LABS: CALCIUM 8.2 mg/dl (8.5-10.1); CREATININE 1.86 mg/dl (0.60-1.40); POTASSIUM 5.2 mmol/L (3.5-5.1)
[2017-07-31] MEDS ORDERED: SODIUM POLYST. SULF SUSP 15G/60ML PO STA (07:57)
[2017-07-31] MEDS: METOPROLOL TARTRATE 25 MG TAB PO SCH ×2 (08:10→21:07)
--- NOTE | 2017-07-31 09:02 | Discharge Instructions ---
Discharge Instructions Date of Service July 31, 2017. Admission Reason for Admission: Afib, Closed Left Hip Fracture Discharge Discharge Diagnosis / Problem: IM Nail Left Hip Fracture Discharge Goals Goal(s): Decrease discomfort, Improve function, Increase independence, Improve disease control, Therapeutic intervention Activity Recommendations Activity Level: Assistance Required Therapies: Physical Therapy, Occupational Therapy Weightbearing Status: Left weightbearing Lifting Limitations: none Exercise/Sports Limitations: none Shower/Bathe: no limitations . Additional Information Patient informed of condition: Yes Advance Directives: Yes DNR: Yes Level of Care: Skilled Communicable Disease: No Prognosis: Improving Instructions / Follow-Up Instructions / Follow-Up Follow-up in Orthopedic Clinic 2 weeks from surgery date. May fully weight-bear on right leg. Current Hospital Diet Patient's current hospital diet: AHA Diet (Heart Healthy) Discharge Diet Recommended Diet: AHA Diet (Heart Healthy) Procedures Procedures Performed: Trochanteric Nail left Femoral Hip Fracture Pending Studies Studies pending at discharge: no Medical Emergencies . Who to Call and When: Medical Emergencies: If at any time you feel your situation is an emergency, please call 911 immediately. . Non-Emergent Contact Non-Emergency issues call your: Surgeon . . "Provider Documentation" section prepared by Jas Ledesma. . Core Measure Problem Core Measures: None
--- NOTE | 2017-07-31 09:10 | Hospitalist Progress Note ---
Hospitalist Progress Note Date of Service July 31, 2017. (Sally Cee PA-C) Subjective Pt evaluation today including: conversation w/ patient, physical exam, chart review, lab review, review of studies Pain: Left hip pain, rated 7/10 PO Intake: Good Voiding: holly catheter in place The patient was seen and examined this morning. Pt reports doing ok today, he is still having significant pain with minimal movement of the left hip. He has been attempting to work with PT/OT. Pt had a large BM this morning after the dose of kayexylate, which he had not had for previous 5 days. He denies feeling of lightheadedness, dizziness, chest pain, flutter or palpitation. Pt remains on the cardizem gtt currently. Additional Comments: Constitutional: No fever, sweats or chills Eyes: No diplopia, no worsening or blurred vision ENT: normal hearing, no trouble swallowing Respiratory: No cough, sputum, dyspnea at rest or on exertion Cardiovascular: No chest pain, tightness or palpitations Abdomen: No pain, nausea, vomiting, diarrhea or constipation Musculoskeletal: See HPI. Neurologic: No weakness, numbness/tingling, or balance problems Psychiatric: No anxiety or depression Skin: No rash or itch (Sally Cee, YSABEL) Objective Vital Signs Date Time Temp Pulse Resp B/P (MAP) Pulse Ox O2 Delivery O2 Flow Rate FiO2 07/31/17 08:01 36.6 98 16 121/78 (92) 100 Nasal Cannula 3.0 07/31/17 08:00 98 Nasal Cannula 2.0 07/31/17 06:57 85 18 95 Nasal Cannula 2.0 07/31/17 04:00 Nasal Cannula 2.0 07/31/17 03:53 36.7 92 16 114/71 (85) 93 Nasal Cannula 2.0 07/31/17 01:54 81 18 92 Nasal Cannula 2.0 07/31/17 00:01 Nasal Cannula 2.0 07/30/17 23:50 36.2 86 16 100/69 (79) 94 Nasal Cannula 2.0 07/30/17 23:06 36.4 83 15 07/30/17 20:59 34.4 86 16 105/69 (81) 94 Room Air 07/30/17 20:00 Nasal Cannula 2.0 07/30/17 19:05 87 18 96 Nasal Cannula 2.0 07/30/17 18:00 36.3 89 18 100/76 (84) 95 Nasal Cannula 2.0 07/30/17 17:00 36.4 91 18 99/62 (74) 93 Nasal Cannula 2.0 07/30/17 16:45 36.3 115 22 105/73 (84) 95 Nasal Cannula 2.0 07/30/17 16:30 36.4 108 20 129/80 (96) 92 Nasal Cannula 2.0 07/30/17 16:25 92 17 103/80 97 Nasal Cannula 2 07/30/17 16:15 36.3 101 21 124/80 95 Nasal Cannula 2 07/30/17 16:05 116 19 122/80 93 Nasal Cannula 2 07/30/17 15:55 100 17 114/79 99 Nasal Cannula 2 07/30/17 15:45 93 22 122/81 99 Oxymask 10 07/30/17 15:35 114 23 107/80 100 Oxymask 10 07/30/17 15:25 117 19 106/77 100 Oxymask 10 07/30/17 15:18 36.3 104 14 103/80 100 Oxymask 10 07/30/17 12:00 98 Nasal Cannula 2.0 07/30/17 11:02 36.9 93 20 109/78 (88) 98 3.0 (Sally Cee, PA-C) Physical Exam Notes: General Appearance: WD/WN, no apparent distress, + thin (cachetic), + pertinent finding Eyes: PERRL, EOMI, + pertinent finding (MMM, endentulous) ENT: pharynx normal, + pertinent finding (hard of hearing) Neck: supple, no JVD Respiratory/Chest: lungs clear, no respiratory distress Cardiovascular: + systolic murmur (holosystolic), + irregularly irregular ( rates in low 100s) Abdomen: normal bowel sounds, non tender, soft, + pertinent finding (Holly catheter draining light yellow urine) Extremities: non-tender, no calf tenderness, + pertinent finding (LLE internally rotated and shortened, mild pitting edema in bilateral ankles) Neurologic/Psychiatric: alert, normal mood/affect, oriented x 3 Skin: normal color, warm/dry (Sally Cee PA-C) Laboratory Results Last 24 Hours Test 07/30/17 15:47 07/31/17 06:28 Hemoglobin 11.0 g/dL 10.6 g/dL Hematocrit 33.7 % 32.8 % White Blood Count 5.98 K/uL Red Blood Count 3.65 M/uL Mean Corpuscular Volume 89.9 fL Mean Corpuscular Hemoglobin 29.0 pg Mean Corpuscular Hemoglobin Concent 32.3 g/dl RDW Standard Deviation 55.6 fL RDW Coefficient of Variation 17.1 % Platelet Count 130 K/uL Mean Platelet Volume 11.3 fL Prothrombin Time 12.3 SECONDS Prothromb Time International Ratio 1.2 Sodium Level 140 mmol/L Potassium Level 5.2 mmol/L Chloride Level 111 mmol/L Carbon Dioxide Level 23 mmol/L Anion Gap 6.0 mmol/L Blood Urea Nitrogen 39 mg/dl Creatinine 1.86 mg/dl Est Creatinine Clear Calc Drug Dose 26.2 ml/min Estimated GFR () 39.3 Estimated GFR (Non- 33.9 BUN/Creatinine Ratio 20.8 Random Glucose 91 mg/dl Calcium Level 8.2 mg/dl Magnesium Level 2.1 mg/dl (Sally Cee PA-C) Assessment and Plan Patient is a 77 y/o male, with PMHx of HTN, HLD, tobacco abuse, who presented to the ED via EMS due to a fall. L hip fracture from mechanical fall: POD #1 - Tylenol PRN, Oxycodone PRN, and IV Dilaudid PRN for pain management - Vitamin D significantly low at 5.6 - cont supplementation - PT/OT - will need inpt rehab - CM assisting - Orthopedics on board - Cardiology consulted for preop clearance, appreciate recs- diltiazem gtt remains on board - plan to titrate metoprolol today and attempt to wean off cardizem gtt per Dr. Sylvester. - Coumadin for dvt ppx Increased lethargy - RESOLVED - ABG was obtained 07/29 and was wnl. - likely dt sedatives administered overnight on 07/28: ativan, percocet, dilaudid - much improved/resolved at this point. New onset a.fib w/ RVR: cont on tele for cardiac monitoring - hr in 120s - Trop neg x 3 - O2 protocol, wean as tolerated- does NOT have O2 supplement at home - current sats adequate on 2 l - Cardiology on board - Cont Cardizem gtt -- Plan to titrate metoprolol today and wean off gtt - Start on coumadin and this will also cover DVT ppx. Follow daily INR. Acut on Chronic Systolic CHF Possible pulmonary hypertension Moderate to severe MR/ Mild to mod TR - Echo showing severely reduced EF during this admission - Elevated BNP at time of admission however initially did not appear volume overloaded, today now has repeat CXR which appears slightly volume overloaded - Stop IVFs today - was administered Lasix 20 mg IV early this morning by night team. PNA- RUL and LLB: - IV Rocephin + Azithromycin (started 07/28) - DuoNebs QID and PRN for SOB/wheezing - MRSA swab neg, sputum cultures pending Hyperkalemia - K = 5.2, will administer Kayexalate this morning. Pt also without bowel movement for 5d at this time. - initially was hypokalemic where he was on fluids with KCl, these were switched to NSS on 07/28. 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 Starting low dose BB. - IV Hydralazine PRN HLD: Continue Pravastatin 20 mg HS DVT prophylaxis: TEDs/SCDs, started coumadin with low dose heparin gtt to bridge last night. Code status: LEVEL V, DNR Dispo: From home, lives with - CM consulted; will consult PT/OT, will need inpt placement - referal to [facility] out. (Sally Cee, YSABEL) Attending Attestation - Pt seen/examined, chart reviewed, care plan d/w CORDELIA Cee. I agree w/ the kulkarni components of her documentation. Pt states he doesn't feel any worse than typical with his breathing but overnight he apparently had worsening symptoms. Denies chest pain. Main complaint is that of leg pain from the op site. Tele with a. fib. VSS no fever gen - cachectic, hearing impaired neck - no obvious JVD heart - irregular, 2/6 systolic murmur LLSB lungs - mild bibasilar rales, mild wheeze b/l abd - soft, minimally distended, palpable stool left lower quadrant ext - edema left thigh from surgery A/P: 1. rapid a. fib - improving w/ CCB drip and BB. On warfarin; daily INR adjust meds as needed 2. acute systolic CHF - lasix IV this am and then again at 1700; repeat labs in am 3. left hip fracture s/p ORIF - appreciate ortho assistance; warfarin for DVT proph 4. cachexia, weight loss, protein calorie malnutrition - underlying malignancy? 5. constipation - bowel regimen 6. ?CKD stage 4 - creatinine has been about 1.8 x 3 days; this may be his baseline Primo HIDALGO MD (Honorio Hidalgo MD)
--- NOTE | 2017-07-31 09:39 | Cardiology Follow-Up ---
Subjective Date of Service: July 31, 2017. Pt evaluation today including: conversation w/ patient, physical exam, chart review, lab review, review of studies, review of inpatient medication list History of Present Illness This morning the patient was alert and answer questions appropriately. Somewhat less interactive than yesterday. He denied pain at the operative site but some pain in his back. He is not aware of any palpitations. He did not complain of breathing trouble. Social History Smoking Status: Current Every Day Smoker History of Alcohol Use: Yes Review of Systems He denies any recent fevers or chills. He states that he has been eating well and not losing weight. In fact he states he is at his ideal weight. Objective Vital Signs Past 12 Hours Date Time Temp Pulse Resp B/P (MAP) Pulse Ox O2 Delivery O2 Flow Rate FiO2 07/31/17 08:01 36.6 98 16 121/78 (92) 100 Nasal Cannula 3.0 07/31/17 08:00 98 Nasal Cannula 2.0 07/31/17 06:57 85 18 95 Nasal Cannula 2.0 07/31/17 04:00 Nasal Cannula 2.0 07/31/17 03:53 36.7 92 16 114/71 (85) 93 Nasal Cannula 2.0 07/31/17 01:54 81 18 92 Nasal Cannula 2.0 07/31/17 00:01 Nasal Cannula 2.0 07/30/17 23:50 36.2 86 16 100/69 (79) 94 Nasal Cannula 2.0 07/30/17 23:06 36.4 83 15 Last Recorded Weight-Kilograms: 56.500 Physical Exam The patient is alert . He was oriented answer all questions appropriately. He appeared cachectic and thin HEENT: Pupils are equal and reactive to light and accommodation. Extraocular movements are intact. The sclerae are anicteric. Neuro: Cranial nerves intact Neck: Patient's neck is supple. He has palpable carotid pulses bilaterally without bruits on auscultation. There is no evidence of jugular venous distention. The thyroid is not enlarged. Lungs: Clear to auscultation bilaterally. He has good air movement without use of accessory muscles. No rales wheezes or rhonchi. Cardiac: Heart demonstrates an irregular rate and rhythm. Normal S1 and S2. Holosystolic murmur of variable intensity heard at the axilla. Pulses: The patient has palpable radial pulses bilaterally that are equal in intensity Extremities: There was no evidence of hypoperfusion. There is no cyanosis or clubbing. There is no edema. Skin: I did not appreciate any rashes on examination today. Data Laboratory Results: Last 24 Hours Test 07/30/17 15:47 07/31/17 06:28 Hemoglobin 11.0 g/dL 10.6 g/dL Hematocrit 33.7 % 32.8 % White Blood Count 5.98 K/uL Red Blood Count 3.65 M/uL Mean Corpuscular Volume 89.9 fL Mean Corpuscular Hemoglobin 29.0 pg Mean Corpuscular Hemoglobin Concent 32.3 g/dl RDW Standard Deviation 55.6 fL RDW Coefficient of Variation 17.1 % Platelet Count 130 K/uL Mean Platelet Volume 11.3 fL Prothrombin Time 12.3 SECONDS Prothromb Time International Ratio 1.2 Sodium Level 140 mmol/L Potassium Level 5.2 mmol/L Chloride Level 111 mmol/L Carbon Dioxide Level 23 mmol/L Anion Gap 6.0 mmol/L Blood Urea Nitrogen 39 mg/dl Creatinine 1.86 mg/dl Est Creatinine Clear Calc Drug Dose 26.2 ml/min Estimated GFR () 39.3 Estimated GFR (Non- 33.9 BUN/Creatinine Ratio 20.8 Random Glucose 91 mg/dl Calcium Level 8.2 mg/dl Magnesium Level 2.1 mg/dl Telemetry reviewed: Atrial fibrillation with variable ventricular rates Assessment and Plan 1. Left ventricular systolic failure: Patient has been restarted on beta- blockade. I think this could be titrated upwards as his diltiazem infusion is titrated off. Eventually would need to convert him from metoprolol tartrate to a succinate. I would be concerned about his volume status. He did have a few crackles on examination today and I agree with the diuretic administered this morning. We will need to monitor him closely for evidence of pulmonary edema given the volume administered over the past few days and has known reduced LV function. His pressure seems reasonable and I think his Kam inhibitor could be Re initiated as well. 2. Atrial fibrillation: Patient started on warfarin. Overall rate control appears reasonable. Will need to wean the diltiazem infusion and titrate his metoprolol as necessary. 3. Valvular heart disease: Patient appears to have moderate to severe mitral regurgitation. This likely to require some additional evaluation in order to gauge the severity. However, with his reduced LV systolic function he is not a good candidate for any type of operative intervention.
[2017-07-31] MEDS: OXYCODONE HCL IR 5 MG TAB (IMMEDIATE RELEASE) PO PRN ×2 (10:02→23:47)
[2017-07-31] MEDS: CEFTRIAXONE SOD INJ 1 GM in DEXTROSE 5% ADD-VANTAGE 50ML 50 ML IV SCH (11:15)
[2017-07-31] MEDS: AZITHROMYCIN IV 250 MG in DEXTROSE 5% 250ML 250 ML IV SCH (11:15)
--- NOTE | 2017-07-31 11:42 | PROGRESS NOTE ---
DATE: 07/31/2017 SUBJECTIVE: A 77-year-old gentleman postop day 1 from IM nailing of a left intertrochanteric fracture. He is doing well. He says his pain is about half. No new complaints. No chest pain or shortness of breath. OBJECTIVE: VITAL SIGNS: Temperature 36.8. Vital signs stable. GENERAL: Reveals a pleasant, thin, cachectic male who is lying in bed, looks pretty comfortable. EXTREMITIES: Examination of left hip and leg reveals the dressing to be clean, dry, and intact. Minimal swelling. No significant drainage. He can dorsiflex and plantarflex his foot appropriately. LABORATORY DATA: Hemoglobin 10.6, hematocrit 32.8. Electrolytes are stable. INR is 1.2. ASSESSMENT: A 77-year-old male with multiple medical comorbidities, postop day 1 from an IM nailing of a left intertrochanteric fracture. He was admitted with new onset AFib. He appears pretty stable. PLAN: 1. DVT prophylaxis including thigh-high TEDs, SCDs. I believe he is going to be put on Coumadin for his AFib and that should be adequate for his DVT prophylaxis as well. 2. PT/OT. He can fully weightbear on this left leg. No particular weightbearing restrictions. 3. Medical management versus medicine service. 4. Disposition. He is orthopedically accept for discharge any time medically able. I did talk to him about rehabilitation stay and he seems willing to do that. I need to see him back 2 weeks out from his surgery date. Any orthopedic questions can be directed to me at [phone].
[2017-07-31] MEDS: PRAVASTATIN SOD 20 MG TAB PO SCH (16:39)
[2017-07-31] MEDS: WARFARIN SOD 4 MG TAB PO SCH (16:40)
[2017-07-31] MEDS: DILTIAZEM HCL INJ 125 MG in DEXTROSE 5% 100ML IV PRN (17:19)
--- NOTE | 2017-07-31 18:03 | EMERGENCY ROOM VISIT NOTE ---
History First contact with patient: 07:51 Chief Complaint: FALL Stated Complaint: AFIB, CLOSED LEFT HIP FRACTURE History of Present Illness The patient is a 77 year old white male who presents to the Emergency Room with complaints of left hip pain. He states he was in his bathroom last night and suffered a mechanical fall. He is unsure exactly what tripped him. He had immediate onset of left hip pain. He was unable to ambulate. He did crawl back to bed. He refused to come to the ED last night. He was unable to get out of bed this morning. Because of this, he allowed his family to call the ambulance to bring him to the ED. He denies any loss of consciousness. He denies striking his head. No pain in the upper extremities. He denies any chest pain, shortness of breath, nausea, or vomiting before or after his fall. He does note a cough. He states he has to get his hip better because he is going to camp next week. No prior history of hip issues. He states he has not seen a doctor for several years. He believes his PCP is Dr. Boyle. Review of Systems REVIEW OF SYSTEM: HEENT: No dizziness, visual problems, hearing loss, or tinnitus. There is no difficulty swallowing and no oral lesions are present. PULMONARY: No cough, shortness of breath, sputum production or hemoptysis. CARDIOVASCULAR: No chest pain, palpitations, shortness of breath or peripheral edema. GASTROINTESTINAL: No diarrhea, constipation, nausea, vomiting, or abdominal pain. GENITOURINARY: No dysuria, frequency, urgency or nocturia. NEUROLOGIC: No weakness, muscle tenderness, epilepsy or history of neurological problems. MUSCULOSKELETAL: No history of joint tenderness/swelling. Positive history of arthritis and arthralgias. SKIN: No rashes or lesions. PSYCHIATRIC: No history of depression or mental illness. ENDOCRINE: No history of diabetes, thyroid disorders, or abnormal hair growth. Past Medical/Surgical History Medical Problems: (1) A-fib (2) Closed left hip fracture Medical history: Hypertension, elevated cholesterol, osteoarthritis Previous surgeries: Back surgery 2, hernia repair Family History Patient reports no known family medical history. Noncontributory. Social History Smoking Status: Current Every Day Smoker Smokeless Tobacco Use: No Alcohol Use: occasionally Drug Use: none Marital Status: Housing Status: lives with family Occupation Status: retired Current/Historical Medications No Active Prescriptions or Reported Meds Allergies Coded Allergies: Aspirin (Verified Adverse Reaction, Unknown, VOMITING, 12/17/14) Physical Exam Vital Signs Date Time Temp Pulse Resp B/P (MAP) Pulse Ox O2 Delivery O2 Flow Rate FiO2 07/28/17 09:28 100 22 140/94 96 Room Air 07/28/17 08:08 140 07/28/17 08:03 138 18 147/105 96 Room Air Pain Rating (0-10): 8.0 Physical Exam General: Frail, cachectic, elderly white male, in obvious discomfort. No acute distress. Laying on a bed. Alert and oriented. He has soiled his clothing. Clothing is dirty. Skin: Warm and dry with fair turgor. No rashes or lesions. No ecchymosis or erythema. The patient is not diaphoretic. No abrasions. HEENT: Normocephalic atraumatic. Eyes PERRLA, EOMI. No conjunctiva or scleral injection. Ears TMs intact bilaterally with good light reflexes. No erythema or bulging. No hemotympanum. Canals are patent. Nares patent bilaterally without turbinate enlargement. No significant drainage. No epistaxis. Oropharynx without erythema or exudate. Uvula midline, oral mucosa mildly dry. No lesions present. Heart: Heart irregularly irregular. No MGR. Peripheral pulses are 2+. Lungs: Lungs have bibasilar crackles. Occasional deep cough. No rhonchi or wheezing. Fair air movement. The patient is able to take a deep breath. Abdomen: Abdomen was inspected, auscultated, and palpated. Bowel sounds present x 4. Soft, nontender to palpation. No hepato-splenomegaly. No masses noted. No rebound. Musculoskeletal: Patient has no leg length discrepancy. He has severe left hip pain with palpation as well as attempts at passive motion. There is pain with logrolling. Intact motor function to left ankle. No pain with palpation patient or motion of the right hip, right knee, right ankle. No pain with motion of the shoulders, elbows, or wrists. No pain with palpation over the cervical spine. Neurologic: Gross sensation is intact across the upper and lower extremities by soft touch. Medical Decision & Procedures ER Provider Diagnostic Interpretation: EKG obtained today was reviewed with Dr. Jefferson. Rate of 142. Atrial fibrillation with rapid ventricular response. Chest x-ray obtained today was read by radiology and reviewed by me. Positive for cardiomegaly without radiographic evidence of congestive failure. Positive emphysema. Airspace consolidation is seen in the right upper lobe. Mild opacities are also seen at the left lung base. Possibility of infectious/inflammatory pneumonitis exists. Radiographic follow-up to resolution is recommended. Pelvis and left hip films obtained today were reviewed by me and read by radiology. He has a nondisplaced intertrochanteric fracture. Laboratory Results Test 07/28/17 08:25 Immature Granulocyte % (Auto) 0.2 % White Blood Count 8.53 K/uL (4.8-10.8) Red Blood Count 4.96 M/uL (4.7-6.1) Hemoglobin 14.4 g/dL (14.0-18.0) Hematocrit 43.5 % (42-52) Mean Corpuscular Volume 87.7 fL (80-100) Mean Corpuscular Hemoglobin 29.0 pg (25-34) Mean Corpuscular Hemoglobin Concent 33.1 g/dl (32-36) Platelet Count 180 K/uL (130-400) Mean Platelet Volume 10.8 fL (7.4-10.4) Neutrophils (%) (Auto) 80.5 % Lymphocytes (%) (Auto) 13.5 % Monocytes (%) (Auto) 5.5 % Eosinophils (%) (Auto) 0.2 % Basophils (%) (Auto) 0.1 % Neutrophils # (Auto) 6.86 K/uL (1.4-6.5) Lymphocytes # (Auto) 1.15 K/uL (1.2-3.4) Monocytes # (Auto) 0.47 K/uL (0.11-0.59) Eosinophils # (Auto) 0.02 K/uL (0-0.5) Basophils # (Auto) 0.01 K/uL (0-0.2) Immature Granulocyte # (Auto) 0.02 K/uL (0.00-0.02) Activated Partial Thromboplast Time 25.0 SECONDS (21.0-31.0) Partial Thromboplastin Ratio 1.0 Total Bilirubin 1.6 mg/dl (0.2-1) Aspartate Amino Transf (AST/SGOT) 19 U/L (15-37) Alanine Aminotransferase (ALT/SGPT) 27 U/L (12-78) Alkaline Phosphatase 115 U/L (45-117) Total Creatine Kinase 68 U/L (39-308) Pro-B-Type Natriuretic Peptide > 51495 pg/ml (0-1800) Total Protein 7.0 gm/dl (6.4-8.2) Albumin 2.7 gm/dl (3.4-5.0) Globulin 4.3 gm/dl (2.5-4.0) Albumin/Globulin Ratio 0.6 (0.9-2) 25-Hydroxy Vitamin D Total 5.6 ng/ml (30-100) CBC, chemistry panel, PT/INR, troponin, CK/CK-MB, and BNP were obtained. CBC is unremarkable. Potassium low at 3.3. BUN and creatinine are elevated at 26 and 1.92. Bilirubin elevated at 1.6. Troponin normal at 0.024. BNP elevated at greater than 35,000. Albumin low at 2.7. INR 1.2. Medications Administered Medications (Trade) Dose Ordered Sig/Luis Route Start Time Stop Time Status Last Admin Dose Admin Diltiazem HCl (Cardizem Inj) 10 mg NOW STAT IV 07/28/17 09:10 07/28/17 09:12 DC 07/28/17 09:22 10 MG Potassium Chloride (KCL 10 mEq / WTR) 10 meq NOW STAT IV 07/28/17 09:10 07/28/17 09:12 DC 07/28/17 09:21 10 MEQ Diltiazem HCl 125 mg/Dextrose 125 ml @ 0 mls/hr Q0M PRN IV 07/28/17 09:15 08/27/17 09:14 07/31/17 17:19 5 MLS/HR Oxycodone HCl (Roxicodone Immediate Rel Tab) 5 mg Q4H PRN PO 07/28/17 09:30 08/11/17 09:29 07/31/17 10:02 5 MG Hydromorphone HCl (Dilaudid Inj) 0.5 mg Q3H PRN IV 07/28/17 09:30 08/11/17 09:29 07/30/17 03:26 0.5 MG Diltiazem 10 mg IV, diltiazem drip, potassium 10 meq IV ED Course Patient and his daughter were educated regarding today's findings. Conservative care measures were discussed. IV was established. Labs were obtained. EKG, chest x-ray, and hip/pelvic films were obtained. Hip film shows an intertrochanteric fracture, nondisplaced. Chest x-ray suggests infectious versus inflammatory pneumonitis. Labs suggest acute kidney insufficiency and poor nutrition, as well as CHF. He was offered pain medication while in the ED. Patient declined. Diltiazem was given for his atrial fibrillation. Diltiazem drip was also instituted. He was given a dose of potassium IV due to his mild hypokalemia. He remained stable while in the ED. Due to his lack of recent medical evaluation and today's findings, I did consult the hospitalist for evaluation and admission. I also spoke with Dr. Bonds from orthopedics. He also came to the ED to evaluate the patient. Please see his dictation for consult management. Patient was seen in conjunction with Dr. Jefferson, who also evaluated the patient and concurred with today's diagnosis and treatment plan. Medical Decision Possibility of acute ID, ACS, arrhythmia, mechanical fall, hip fracture, pelvic fracture, pneumonia, dehydration, intracranial injury, cervical spine injury, and left leg abnormality were considered, among others. Impression Primary Impression: Closed left hip fracture Additional Impressions: A-fib Hypokalemia Acute kidney insufficiency Pneumonia Departure Information Dispostion Admitted as an inpatient Condition FAIR Prescriptions No Active Prescriptions or Reported Meds Referrals Oliver Boyle M.D. (PCP) Forms HOME CARE DOCUMENTATION FORM, IMPORTANT VISIT INFORMATION Patient Instructions [facility] Problem Qualifiers Primary Impression: Closed left hip fracture Encounter type: initial encounter Qualified Codes: S72.002A - Fracture of unspecified part of neck of left femur, initial encounter for closed fracture Additional Impressions: A-fib Atrial fibrillation type: unspecified Qualified Codes: I48.91 - Unspecified atrial fibrillation Pneumonia Pneumonia type: due to unspecified organism Laterality: bilateral Lung location: unspecified part of lung Qualified Codes: J18.9 - Pneumonia, unspecified organism
[2017-07-31] MEDS: DOCUSATE SODIUM/SENNA 50/8.6MG TAB PO SCH (21:07)
[2017-08-01] VITALS (12 sets, daily range): BP systolic 102–126; BP diastolic 68–86; PULSE 74–118; TEMP 36.6–37; O2SAT 93–99
[2017-08-01] MEDS: IPRATROPIUM BROMIDE NEB SOLN 0.02% 2.5 ML VIAL INH SCH ×3 (01:51→14:10)
[2017-08-01] MEDS: LEVALBUTEROL 1.25MG/0.5ML NEB INH SCH ×3 (01:52→14:10)
[2017-08-01] MEDS: POLYETHYLENE (MIRALAX) 17 GM PACK PO SCH ×2 (05:24→11:54)
[2017-08-01 06:27] LABS: INR 1.9 (0.9-1.1)
[2017-08-01 06:50] LABS: CALCIUM 8.3 mg/dl (8.5-10.1); CREATININE 2.38 mg/dl (0.60-1.40); POTASSIUM 4.6 mmol/L (3.5-5.1)
[2017-08-01] MEDS: METOPROLOL TARTRATE 25 MG TAB PO SCH ×2 (08:16→20:48)
--- NOTE | 2017-08-01 08:43 | PROGRESS NOTE ---
DATE: 08/01/2017 SUBJECTIVE: A 77-year-old gentleman postop day 2, from IM nailing of the left intertrochanteric fracture. He is doing pretty well. While lying in bed, he has no pain. No new complaints. No chest pain. No shortness of breath. OBJECTIVE: VITAL SIGNS: Temperature is 36.9. Vital signs stable. GENERAL: Reveals a healthy pleasant elderly male. He is sitting up in bed, eating breakfast. EXTREMITIES: Examination of the left leg reveals the dressing to be clean, dry, and intact. Little bit of serosanguineous drainage. He can dorsiflex and plantarflex his foot appropriately. He has got some dependent edema distally. LABORATORY DATA: INR is 1.9. Creatinine is slightly elevated 2.38. ASSESSMENT: A 77-year-old male with multiple underlying comorbidities with a new onset atrial fibrillation, postop day 2 from IM nailing of left intertrochanteric fracture. Orthopedically, he is doing fine. His INR is now therapeutic. He has got multiple other medical issues. PLAN: 1. DVT prophylaxis including thigh-high TEDs, SCDs, and Coumadin as per the medicine service. 2. PT/OT. Weightbear as tolerated. 3. Pain control, seems to be doing pretty well with current pain regimen. 4. Disposition: He is orthopedically acceptable for discharge any time. He certainly will need to go to rehab or snf stay. I need to see him back 2 weeks out from his surgery date. Any orthopedic questions can be directed at [phone]. [facility]
--- NOTE | 2017-08-01 08:48 | Hospitalist Progress Note ---
Hospitalist Progress Note Date of Service August 01, 2017. (Sally Cee PA-C) Subjective Pt evaluation today including: conversation w/ patient, physical exam, chart review, lab review, review of studies Pain: L hip pain PO Intake: Good Voiding: no voiding problems The patient was seen and examined this morning. Pt reports doing ok this morning. He notes his breathing is slightly improved. He note he has worked with PT/OT and thinks that he has ambulated around the halls yesterday with a walker, however he has not been able to put weight on his left leg at all. Pt has been tolerating PO diet without difficulty. Reports having a BM yesterday. He is requesting to get up out of bed. Constitutional: No fever, No chills, No sweats Eyes: No redness, No diplopia ENT: No nasal symptoms, No trouble swallowing Respiratory: No cough, No shortness of breath Cardiovascular: No chest pain Abdomen: No pain, No nausea, No vomiting, No diarrhea, No constipation Musculoskeletal: No joint pain, No swelling Neurologic: + weakness, No numbness/tingling Endo: No fatigue Skin: No rash, No itch (Sally Cee PA-C) Objective Vital Signs Date Time Temp Pulse Resp B/P (MAP) Pulse Ox O2 Delivery O2 Flow Rate FiO2 08/01/17 07:15 74 16 97 Nasal Cannula 2.0 08/01/17 04:00 95 Nasal Cannula 2.0 08/01/17 03:30 36.9 100 17 113/73 (86) 95 Nasal Cannula 2.0 08/01/17 01:49 86 16 97 Nasal Cannula 2.0 07/31/17 23:59 98 Nasal Cannula 2.0 07/31/17 22:57 36.4 96 18 116/74 (88) 98 Nasal Cannula 3.0 07/31/17 19:38 36.7 99 18 96/61 (73) 97 Nasal Cannula 2.0 07/31/17 18:55 98 18 97 Nasal Cannula 2.0 07/31/17 16:00 Room Air 07/31/17 16:00 36.8 94 22 101/66 (78) 99 Room Air 07/31/17 14:16 84 18 97 Nasal Cannula 2.0 07/31/17 13:39 97 07/31/17 12:00 98 Nasal Cannula 2.0 07/31/17 12:00 100 07/31/17 10:56 36.8 88 18 104/65 (78) 96 2.0 (Sally Cee PA-C) Physical Exam Notes: General Appearance: WD/WN, no apparent distress, + thin (cachetic), + pertinent finding Eyes: PERRL, EOMI, + pertinent finding (MMM, endentulous) ENT: pharynx normal, + pertinent finding (hard of hearing) Neck: supple, no JVD Respiratory/Chest: lungs clear, no respiratory distress Cardiovascular: + systolic murmur (holosystolic), + irregularly irregular ( rates in low 100s) Abdomen: normal bowel sounds, non tender, soft, + pertinent finding (Rogers catheter removed) Extremities: non-tender, no calf tenderness, +Left hip dressing c/d/i, minimal ecchymosis developing over upper extremities Neurologic/Psychiatric: alert,, oriented to place, seems to have difficulty remembering events from yesterday Skin: normal color, warm/dry (Sally Cee PA-C) Laboratory Results Last 24 Hours Test 08/01/17 05:52 Prothrombin Time 19.5 SECONDS Prothromb Time International Ratio 1.9 Sodium Level 137 mmol/L Potassium Level 4.6 mmol/L Chloride Level 106 mmol/L Carbon Dioxide Level 26 mmol/L Anion Gap 5.0 mmol/L Blood Urea Nitrogen 50 mg/dl Creatinine 2.38 mg/dl Est Creatinine Clear Calc Drug Dose 20.5 ml/min Estimated GFR () 29.2 Estimated GFR (Non- 25.2 BUN/Creatinine Ratio 21.0 Random Glucose 114 mg/dl Calcium Level 8.3 mg/dl (Sally Cee PA-C) Assessment and Plan Patient is a 77 y/o male, with PMHx of HTN, HLD, tobacco abuse, who presented to the ED via EMS due to a fall. L hip fracture from mechanical fall: POD #2 - Tylenol PRN, Oxycodone PRN - dc IV pain medication as this may be adding to increased confusion. Will attempt to also wean off percocet. - Vitamin D significantly low at 5.6 - cont supplementation - PT/OT - will need inpt rehab - CM assisting - Orthopedics on board - Cardiology consulted: titrate metoprolol up and eventually convert to Toprol xl, stop cardizem gtt now - discussed with Dr. Sylvester - Coumadin 4mg daily for dvt ppx Increased lethargy - RESOLVED - ABG was obtained 07/29 and was wnl. - likely dt sedatives administered overnight on 07/28: ativan, percocet, dilaudid - much improved/resolved at this point. - Will dc IV narcotics at this time New onset a.fib w/ RVR: - cont on tele for cardiac monitoring - hr sitting around 100 now - Trop neg x 3 - O2 protocol, wean as tolerated- does NOT have O2 supplement at home - current sats adequate on 2 l - Cardiology on board - titrate metoprolol up and eventually convert to Toprol xl, now off cardizem gtt - Cont coumadin and this will also cover DVT ppx. Follow daily INR. - INR =1.9 Acut on Chronic Systolic CHF Possible pulmonary hypertension Moderate to severe MR/ Mild to mod TR - Echo showing severely reduced EF during this admission - Diuresed yesterday due to worsening CXR - outs 1.3L, but still positive ~4L overall since admission. PNA- RUL and LLB: - IV Rocephin + Azithromycin (started 07/28) - finish today - DuoNebs QID and PRN for SOB/wheezing - MRSA swab neg, sputum cultures pending Hyperkalemia - resolved - K = 4.9 after dose of Kayexalate on 07/31. he was on fluids with KCl initially but these were switched to NSS on 07/28. - Follow PRP REBEKAH with diuresis CKD stage III- IV: last group home counselor in 2016 at 1.5: Darkened urine/ oliguria - Cr and BUN elevated - BUN=50 and Cr. 2.38 due to IV lasix diuresis for volume overload - Avoid nephrotoxic agents and renally dose medications as appropriate - U/Os improving - urine appears clear and yellow - pt voiding on own. Can do intermittent straight caths prn for urine retention of 450 mL. - Follow PRP HTN: - Will hold Lisinopril 10 mg daily and Norvasc 5 mg daily - cont metoprolol. - likely be able to stop norvasc completely and not resume upon discharge - Off Cardizem gtt - IV Hydralazine PRN HLD: Continue Pravastatin 20 mg HS DVT prophylaxis: TEDs/SCDs, coumadin Code status: LEVEL V, DNR Dispo: From home, lives with - CM consulted; will consult PT/OT, will need inpt placement - referral to [facility] out. (Sally Cee PA-C) Attending Attestation - Pt seen/examined, chart reviewed, care plan d/w CORDELIA Cee. I agree w/ the kulkarni components of her documentation. Pt asked for a urinal during the visit. He did not realize he actually had it in the bed. Confused, thinking he had been ambulating (staff confirm that is not the case). Reports 30 pounds of weight loss over the last year. VSS no fever gen - cachectic, hearing impaired neck - no obvious JVD today heart - irregular, 2/6 systolic murmur LLSB lungs - wheezes/rales resolved, airation decent today abd - soft, minimally distended, palpable stool left lower quadrant (vs scar tissue from prior surgery?) ext - edema left thigh from surgery unchanged Cr 2.3 today A/P: 1. rapid a. fib - improved; stop cardizem drip; change to PO cardizem; cont BB ; cont warfarin although INR jumped up quickly last 48 hours; suspect we will need to reduce dose tomorrow given his poor nutritional status; appreciate cardiology consult 2. acute systolic CHF - appears compensated today/slightly dry (has evidenced by bump in creatinine today). stop lasix. cont BB. 3. left hip fracture s/p ORIF - appreciate ortho assistance; warfarin for DVT proph 4. cachexia, weight loss, severe protein calorie malnutrition - underlying malignancy?; add MVI, boost, thiamine; outpatient w/u if desired by family? 5. constipation - bowel regimen; dulcolax suppos x 1 today 6. ?CKD stage 4 - creatinine has been about 1.8 x 3 days; now with acute kidney injury due to over-diuresis. BMP am. 7. vitamin D def - severe - ergocalciferol 50328 units weekly x 8 weeks 8. metabolic encephalopathy - supportive care; avoid benzos 9. severe protein calorie malnutrition leave on tele J SIUTA MD (Honorio Hidalgo MD)
[2017-08-01] MEDS ORDERED: AZITHROMYCIN 250 MG TAB PO SCH (09:00)
[2017-08-01] MEDS ORDERED: BISACODYL 10 MG SUPP PR STA (11:16)
[2017-08-01] MEDS ORDERED: ERGOCALCIFEROL 50,000 INTER.UNIT CAP PO ONE (11:30)
[2017-08-01] MEDS: CEFTRIAXONE SOD INJ 1 GM in DEXTROSE 5% ADD-VANTAGE 50ML 50 ML IV SCH (11:33)
[2017-08-01] MEDS: OXYCODONE HCL IR 5 MG TAB (IMMEDIATE RELEASE) PO PRN ×2 (11:52→18:22)
--- NOTE | 2017-08-01 12:16 | Cardiology Follow-Up ---
Subjective Date of Service: August 01, 2017. Pt evaluation today including: conversation w/ patient, physical exam, chart review, lab review, review of studies, review of inpatient medication list, conversation w/ attending History of Present Illness This morning the patient appeared alert and seemed answer all questions appropriately. He had some hearing difficulty. He did 9 any breathing difficulty. He does have some discomfort perhaps in his hip although he had difficulty characterizing the pain. Social History Smoking Status: Current Every Day Smoker History of Alcohol Use: Yes Review of Systems Respiratory: No cough, No shortness of breath Cardiac: No chest pain He denies any recent fevers or chills. He states that he has been eating well and not losing weight. In fact he states he is at his ideal weight. Objective Vital Signs Past 12 Hours Date Time Temp Pulse Resp B/P (MAP) Pulse Ox O2 Delivery O2 Flow Rate FiO2 08/01/17 12:00 98 Nasal Cannula 2.0 08/01/17 08:00 98 Nasal Cannula 2.0 08/01/17 08:00 36.8 98 18 126/86 (99) 98 Room Air 2.0 Nasal Cannula 08/01/17 07:15 74 16 97 Nasal Cannula 2.0 08/01/17 04:00 95 Nasal Cannula 2.0 08/01/17 03:30 36.9 100 17 113/73 (86) 95 Nasal Cannula 2.0 08/01/17 01:49 86 16 97 Nasal Cannula 2.0 Last Recorded Weight-Kilograms: 56.700 Physical Exam The patient is alert . He was oriented answer all questions appropriately. He appeared cachectic and thin HEENT: Pupils are equal and reactive to light and accommodation. Extraocular movements are intact. The sclerae are anicteric. Neuro: Cranial nerves intact Neck: Patient's neck is supple. He has palpable carotid pulses bilaterally without bruits on auscultation. There is no evidence of jugular venous distention. The thyroid is not enlarged. Lungs: Clear to auscultation bilaterally. He has good air movement without use of accessory muscles. No rales wheezes or rhonchi. Cardiac: Heart demonstrates an irregular rate and rhythm. Normal S1 and S2. Holosystolic murmur of variable intensity heard at the axilla. Pulses: The patient has palpable radial pulses bilaterally that are equal in intensity Extremities: There was no evidence of hypoperfusion. There is no cyanosis or clubbing. There is no edema. Skin: I did not appreciate any rashes on examination today. Data Laboratory Results: Last 24 Hours Test 08/01/17 05:52 Prothrombin Time 19.5 SECONDS Prothromb Time International Ratio 1.9 Sodium Level 137 mmol/L Potassium Level 4.6 mmol/L Chloride Level 106 mmol/L Carbon Dioxide Level 26 mmol/L Anion Gap 5.0 mmol/L Blood Urea Nitrogen 50 mg/dl Creatinine 2.38 mg/dl Est Creatinine Clear Calc Drug Dose 20.5 ml/min Estimated GFR () 29.2 Estimated GFR (Non- 25.2 BUN/Creatinine Ratio 21.0 Random Glucose 114 mg/dl Calcium Level 8.3 mg/dl Telemetry reviewed: Atrial fibrillation with reasonable rate control Assessment and Plan 1. Left ventricular systolic failure: He appears to be well compensated. Despite a significant net positive fluid balance since his admission he does not appear to have an element of pulmonary congestion. He did diurese somewhat yesterday with a slight reduction in his overall renal function. He is on a beta-myke and at some point we can hopefully reintroduce his Kam inhibitor. The etiology of his LV dysfunction is unknown. He does have biventricular failure which would suggest a nonischemic process. He did not report anginal symptoms. I do not think this is the appropriate time for an ischemic evaluation. I believe this can be deferred to the outpatient setting in the absence of ischemic symptoms. 2. Atrial fibrillation: Patient started on warfarin. Diltiazem infusion stopped. Will titrate oral beta blockade as required for rate control. 3. Valvular heart disease: Patient appears to have moderate to severe mitral regurgitation. This likely to require some additional evaluation in order to gauge the severity. However, with his reduced LV systolic function he is not a good candidate for any type of operative intervention.
[2017-08-01] MEDS ORDERED: NURSING VERBAL MED ORDER ONE (16:15)
[2017-08-01] MEDS: PRAVASTATIN SOD 20 MG TAB PO SCH (16:22)
[2017-08-01] MEDS: WARFARIN SOD 4 MG TAB PO SCH (16:22)
[2017-08-01] MEDS: ACETAMINOPHEN 325 MG TAB PO PRN (16:23)
[2017-08-01] MEDS ORDERED: METOPROLOL TARTRATE 25 MG TAB PO ONE (17:30)
[2017-08-01] MEDS: DOCUSATE SODIUM/SENNA 50/8.6MG TAB PO SCH (20:48)
[2017-08-02] VITALS (9 sets, daily range): BP systolic 94–131; BP diastolic 64–74; PULSE 101–126; TEMP 36.3–36.8; O2SAT 91–100
[2017-08-02] MEDS: LEVALBUTEROL 1.25MG/0.5ML NEB INH SCH ×4 (01:45→19:11)
[2017-08-02] MEDS: IPRATROPIUM BROMIDE NEB SOLN 0.02% 2.5 ML VIAL INH SCH ×4 (01:45→19:11)
[2017-08-02] MEDS: BOOST VANILLA PO SCH ×2 (07:50→16:16)
[2017-08-02 07:51] LABS: INR 2.8 (0.9-1.1)
[2017-08-02] MEDS: METOPROLOL TARTRATE 25 MG TAB PO SCH ×3 (07:51→21:27)
[2017-08-02] MEDS: CEROVITE ADV FORMULA TAB PO SCH (07:53)
[2017-08-02] MEDS: THIAMINE HCL 100 MG TAB PO SCH (07:53)
[2017-08-02 08:12] LABS: CALCIUM 8.2 mg/dl (8.5-10.1); CREATININE 1.91 mg/dl (0.60-1.40); POTASSIUM 4.6 mmol/L (3.5-5.1)
--- NOTE | 2017-08-02 09:16 | Cardiology Follow-Up ---
Subjective Date of Service: August 02, 2017. Pt evaluation today including: conversation w/ patient, physical exam, chart review, lab review, review of studies, review of inpatient medication list History of Present Illness This morning the patient claims to be feeling well. He has minimal discomfort as operative site. He did not report any pain elsewhere. He claims to have been out of bed yesterday and ambulated briefly with a walker. He has good appetite and tolerated his breakfast. He denies any chest pain or breathing difficulty. He is not currently aware of any palpitations or racing heartbeats Social History Smoking Status: Current Every Day Smoker History of Alcohol Use: Yes Review of Systems Respiratory: No cough, No shortness of breath Cardiac: No chest pain He denies any recent fevers or chills. He states that he has been eating well and not losing weight. In fact he states he is at his ideal weight. Objective Vital Signs Past 12 Hours Date Time Temp Pulse Resp B/P (MAP) Pulse Ox O2 Delivery O2 Flow Rate FiO2 08/02/17 07:21 106 18 91 Nasal Cannula 2.0 08/02/17 06:27 36.4 125 17 131/73 (92) 100 Nasal Cannula 2.0 08/02/17 04:02 36.3 126 18 117/74 (88) 95 Nasal Cannula 2.0 08/02/17 04:00 Nasal Cannula 2.0 08/02/17 01:45 115 18 97 Nasal Cannula 2.0 08/02/17 00:01 Nasal Cannula 2.0 08/01/17 23:17 36.6 115 22 106/80 (89) 99 Nasal Cannula 2.0 Last Recorded Weight-Kilograms: 57.500 Physical Exam The patient is alert . He was oriented answer all questions appropriately. He appeared cachectic and thin HEENT: Pupils are equal and reactive to light and accommodation. Extraocular movements are intact. The sclerae are anicteric. Neuro: Cranial nerves intact Neck: Patient's neck is supple. He has palpable carotid pulses bilaterally without bruits on auscultation. There is no evidence of jugular venous distention. The thyroid is not enlarged. Lungs: Clear to auscultation bilaterally. He has good air movement without use of accessory muscles. No rales wheezes or rhonchi. Cardiac: Heart demonstrates an irregular rate and rhythm. Normal S1 and S2. Holosystolic murmur of variable intensity heard at the axilla. Pulses: The patient has palpable radial pulses bilaterally that are equal in intensity Extremities: There was no evidence of hypoperfusion. There is no cyanosis or clubbing. There is no edema. Skin: I did not appreciate any rashes on examination today. Data Laboratory Results: Last 24 Hours Test 08/02/17 07:23 Prothrombin Time 29.2 SECONDS Prothromb Time International Ratio 2.8 Sodium Level 139 mmol/L Potassium Level 4.6 mmol/L Chloride Level 108 mmol/L Carbon Dioxide Level 27 mmol/L Anion Gap 4.0 mmol/L Blood Urea Nitrogen 50 mg/dl Creatinine 1.91 mg/dl Est Creatinine Clear Calc Drug Dose 25.9 ml/min Estimated GFR () 38.0 Estimated GFR (Non- 32.8 BUN/Creatinine Ratio 26.0 Random Glucose 83 mg/dl Calcium Level 8.2 mg/dl Thyroid Stimulating Hormone (TSH) 1.430 uIu/ml Telemetry reviewed: Atrial fibrillation with high ventricular rates Assessment and Plan 1. Left ventricular systolic failure: He appears to be well compensated. He had a good fluid balance yesterday. His lungs continues unclear despite a significant amount of volume administered during this admission. I think we can defer any aggressive diuresis currently. However, would have low threshold for starting a diuretic for any respiratory complaints. He was on lisinopril and amlodipine the time of admission. It would be nice to restart his Kam inhibitor. His renal function appears to be stable and if he was actually taking this medication prior to discharge likely will not affect his overall renal function. 2. Atrial fibrillation: Patient started on warfarin. Will titrate oral beta blockade as required for rate control. 3. Valvular heart disease: Patient appears to have moderate to severe mitral regurgitation. This likely to require some additional evaluation in order to gauge the severity. However, with his reduced LV systolic function he is not a good candidate for any type of operative intervention. At this point it seems that our main goal from cardiac standpoint is control of his ventricular rate. I would continue titrating his metoprolol until we achieved the desired effect. I will be away from the hospital for the next 2 days but any questions regarding his medication or cardiac condition could be addressed to the operations officer afloat anhydrous ammonia production supervisor, Dr. Riley
[2017-08-02] MEDS: CEFTRIAXONE SOD INJ 1 GM in DEXTROSE 5% ADD-VANTAGE 50ML 50 ML IV SCH (11:32)
--- NOTE | 2017-08-02 12:02 | PROGRESS NOTE ---
DATE: 08/02/2017 SUBJECTIVE: A 77-year-old gentleman postop day 3 from IM nailing of the left intertrochanteric fracture. He continues to be in the PCU. Does not complain much of hip pain. Appears clinically to be a bit short of breath. OBJECTIVE: VITAL SIGNS: Temperature 36.3. He has been pretty tachycardic in the 115-120s. EXTREMITIES: Examination of the left hip reveals the dressings to be clean, dry, and intact. He holds his leg with it externally rotated and flexed some. He has pain with any type of hip motion. He is neurologically intact. LABORATORY DATA: INR is 2.8. Creatinine is improved. ASSESSMENT: A 77-year-old gentleman postop day 3 from intramedullary nailing of the left intertrochanteric fracture. He has got multiple comorbidities. He is a bit short of breath and he has been tachycardic, which they are trying to control medically. PLAN: 1. DVT prophylaxis including thigh-high TEDs, SCDs, and now on Coumadin due to this new AFib. 2. PT/OT. He can fully weightbear on his left leg as tolerated. 3. Pain control. Doing reasonably well with current pain regimen. 4. Medical management as per the medicine service. 5. Disposition: He is orthopedically stable and acceptable for discharge any time medically stable. I will see him back in 2 weeks out from the surgery date. Any orthopedic questions can be directed to me at [phone].
--- NOTE | 2017-08-02 12:58 | Hospitalist Progress Note ---
Hospitalist Progress Note Date of Service August 02, 2017. (Sally Cee PA-C) Subjective Pt evaluation today including: conversation w/ patient, physical exam, chart review, lab review, review of studies Pain: L hip pain PO Intake: Good Voiding: no voiding problems The patient was seen and examined this morning. Pt reports doing ok today, he tells me he is board and is tired of being here in the hospital. Pain in the left hip is still significant with minimal movement but has been attempting to work with PT/OT. Pt denies palpitations or flutter, and cannot tell that his HR is elevated even at rest. Additional Comments: Constitutional: No fever, No chills, No sweats Eyes: No redness, No diplopia ENT: No nasal symptoms, No trouble swallowing Respiratory: No cough, No shortness of breath Cardiovascular: No chest pain Abdomen: No pain, No nausea, No vomiting, No diarrhea, No constipation Musculoskeletal: No joint pain, No swelling Neurologic: + weakness, No numbness/tingling Endo: No fatigue Skin: No rash, No itch (Sally Cee PA-C) Objective Vital Signs Date Time Temp Pulse Resp B/P (MAP) Pulse Ox O2 Delivery O2 Flow Rate FiO2 08/02/17 12:00 Nasal Cannula 2.0 08/02/17 10:36 36.3 115 20 94/69 (77) 97 Nasal Cannula 2.0 08/02/17 08:00 Nasal Cannula 2.0 08/02/17 07:21 106 18 91 Nasal Cannula 2.0 08/02/17 06:27 36.4 125 17 131/73 (92) 100 Nasal Cannula 2.0 08/02/17 04:02 36.3 126 18 117/74 (88) 95 Nasal Cannula 2.0 08/02/17 04:00 Nasal Cannula 2.0 08/02/17 01:45 115 18 97 Nasal Cannula 2.0 08/02/17 00:01 Nasal Cannula 2.0 08/01/17 23:17 36.6 115 22 106/80 (89) 99 Nasal Cannula 2.0 08/01/17 20:00 Nasal Cannula 2.0 08/01/17 19:16 88 18 95 Nasal Cannula 2.0 08/01/17 19:02 36.6 118 28 102/68 (79) 98 08/01/17 16:00 Nasal Cannula 2.0 08/01/17 15:28 36.8 105 18 126/84 (98) 98 08/01/17 14:11 94 18 93 Nasal Cannula 2.0 (Sally Cee PA-C) Physical Exam Notes: General Appearance: WD/WN, no apparent distress, + thin (cachetic) Eyes: PERRL, EOMI, + pertinent finding (MMM, endentulous) ENT: pharynx normal, + pertinent finding (hard of hearing) Neck: supple, no JVD Respiratory/Chest: lungs clear, no respiratory distress Cardiovascular: + systolic murmur (holosystolic), + irregularly irregular ( rates in low 120s) Abdomen: normal bowel sounds, non tender, soft, + pertinent finding (Rogers catheter removed) Extremities: non-tender, no calf tenderness, +Left hip dressing c/d/i, minimal ecchymosis developing over upper extremities Neurologic/Psychiatric: alert, oriented to place, answers all questions appropriately Skin: normal color, warm/dry (Sally Cee PA-C) Laboratory Results Last 24 Hours Test 08/02/17 07:23 Prothrombin Time 29.2 SECONDS Prothromb Time International Ratio 2.8 Sodium Level 139 mmol/L Potassium Level 4.6 mmol/L Chloride Level 108 mmol/L Carbon Dioxide Level 27 mmol/L Anion Gap 4.0 mmol/L Blood Urea Nitrogen 50 mg/dl Creatinine 1.91 mg/dl Est Creatinine Clear Calc Drug Dose 25.9 ml/min Estimated GFR () 38.0 Estimated GFR (Non- 32.8 BUN/Creatinine Ratio 26.0 Random Glucose 83 mg/dl Calcium Level 8.2 mg/dl Vitamin B12 Level 452 pg/mL Folate 4.97 ng/mL Thyroid Stimulating Hormone (TSH) 1.430 uIu/ml (Sally Cee PA-C) Assessment and Plan Patient is a 77 y/o male, with PMHx of HTN, HLD, tobacco abuse, who presented to the ED via EMS due to a fall. L hip fracture from mechanical fall: POD #2 - Tylenol PRN, Oxycodone PRN - dc IV pain medication as this may be adding to increased confusion. Will attempt to also wean off percocet. - Vitamin D significantly low at 5.6 - cont supplementation - PT/OT - will need inpt rehab - CM assisting - Orthopedics on board - Cardiology consulted: titrate metoprolol up and eventually convert to Toprol xl, off cardizem gtt- discussed with Dr. Sylvester - Coumadin decreased today to 2 mg as his INR jose cruz quickly - for dvt ppx Increased lethargy - RESOLVED - ABG was obtained 07/29 and was wnl. - likely dt sedatives administered overnight on 07/28: ativan, percocet, dilaudid - much improved/resolved at this point. - off IV narcotics New onset a.fib w/ RVR: - cont on tele for cardiac monitoring - hr sitting around 100 now - Trop neg x 3 - O2 protocol, wean as tolerated- does NOT have O2 supplement at home - current sats adequate on 2 l - Cardiology on board - titrate metoprolol up to 25 mg TID today, and eventually convert to Toprol xl, now off cardizem gtt - Cont coumadin and this will also cover DVT ppx. - Reduce todays dose as above. - INR = 2.8 Acut on Chronic Systolic CHF Possible pulmonary hypertension Moderate to severe MR/ Mild to mod TR - Echo showing severely reduced EF during this admission - Diuresed yesterday due to worsening CXR - outs 1.3L, but still positive ~4L overall since admission. PNA- RUL and LLB: - IV Rocephin + Azithromycin (started 07/28) - finish today - DuoNebs QID and PRN for SOB/wheezing - MRSA swab neg, sputum cultures pending Hyperkalemia - resolved - K = 4.6 - got dose of Kayexalate on 07/31. he was on fluids with KCl initially but these were switched to NSS on 07/28. 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 - Avoid nephrotoxic agents and renally dose medications as appropriate - U/Os improving - urine appears clear and yellow - pt voiding on own. Can do intermittent straight caths prn for urine retention of 450 mL. - Follow PRP HTN: - Will hold Lisinopril 10 mg daily and Norvasc 5 mg daily - cont metoprolol. - likely be able to stop norvasc completely and not resume upon discharge. Would also start lisinopril when BP slightly improved as per cardiology - Off Cardizem gtt - IV Hydralazine PRN HLD: Continue Pravastatin 20 mg HS DVT prophylaxis: TEDs/SCDs, coumadin Code status: LEVEL V, DNR Dispo: From home, lives with - CM consulted; will consult PT/OT, will need inpt placement - referral to [facility] out. (Sally Cee, YSABEL) Attending Attestation - Pt seen/examined, chart reviewed, care plan d/w CORDELIA Cee. I agree w/ the kulkarni components of her documentation. Pt w/ c/o pain, left hip, only. NO dyspnea. updated by phone - she reports progressive weight loss x 2 years, but worse in the last 6 months. Also with memory disturbance x several months. VSS no fever gen - cachectic, hearing impaired neck - no JVD heart - irregular, 2/6 systolic murmur LLSB lungs - scant dry rales bases abd - soft, distension resolved ext - edema left thigh from surgery unchanged A/P: 1. rapid a. fib - ongoing; increase BB to TID dosing today; leave on tele. Appreciate cardiology consult. 2. acute systolic CHF - appears compensated again today; cont BB. 3. left hip fracture s/p ORIF - appreciate ortho assistance; warfarin for DVT proph 4. cachexia, weight loss, severe protein calorie malnutrition - underlying malignancy?; added MVI, boost, thiamine; outpatient w/u; I voiced my concerns w / pt's today 5. constipation - improved 6. ?CKD stage 4 - creatinine seems to plateau at about 1.8; this may be his baseline; bmp am 7. vitamin D def - severe - ergocalciferol 69282 units weekly x 8 weeks 8. metabolic encephalopathy - supportive care; avoid benzos; according to may have cognitive impairment; unsure of baseline then 9. severe protein calorie malnutrition 10. community-acquired pneumonia - finish abx course leave on tele Primo HIDALGO MD (Honorio Hidalgo MD)
[2017-08-02] MEDS: PRAVASTATIN SOD 20 MG TAB PO SCH (16:16)
[2017-08-02] MEDS: WARFARIN SOD 2 MG TAB PO SCH (16:16)
[2017-08-02] MEDS: DOCUSATE SODIUM/SENNA 50/8.6MG TAB PO SCH (21:27)
[2017-08-03] VITALS (9 sets, daily range): BP systolic 100–135; BP diastolic 63–87; PULSE 87–131; TEMP 36.2–37; O2SAT 91–99
[2017-08-03] MEDS: IPRATROPIUM BROMIDE NEB SOLN 0.02% 2.5 ML VIAL INH SCH ×4 (01:52→19:10)
[2017-08-03] MEDS: LEVALBUTEROL 1.25MG/0.5ML NEB INH SCH ×4 (01:52→19:10)
[2017-08-03 06:13] LABS: INR 2.6 (0.9-1.1)
[2017-08-03 06:38] LABS: CALCIUM 7.9 mg/dl (8.5-10.1); CREATININE 1.53 mg/dl (0.60-1.40); POTASSIUM 4.7 mmol/L (3.5-5.1)
[2017-08-03] MEDS: OXYCODONE HCL IR 5 MG TAB (IMMEDIATE RELEASE) PO PRN ×2 (08:21→16:20)
[2017-08-03] MEDS: BOOST VANILLA PO SCH ×2 (08:21→16:20)
[2017-08-03] MEDS: METOPROLOL TARTRATE 25 MG TAB PO SCH ×3 (08:22→21:20)
[2017-08-03] MEDS: CEROVITE ADV FORMULA TAB PO SCH (08:22)
[2017-08-03] MEDS: THIAMINE HCL 100 MG TAB PO SCH (08:22)
--- NOTE | 2017-08-03 09:46 | PROGRESS NOTE ---
DATE: 08/03/2017 SUBJECTIVE: A 77-year-old gentleman postop day 4 from IM nailing of a left intertrochanteric fracture. Seems to be doing better today. Does not have any significant pain. Seems to be breathing more comfortably. No particular complaints. OBJECTIVE: VITAL SIGNS: Temperature is 36.4. He is pretty tachycardic this morning with a rate of 130. Blood pressure is stable. GENERAL: Reveals a pleasant elderly cachectic male, lying in bed, looks reasonably comfortable. EXTREMITIES: Examination of the left hip wounds reveal the incision to be healing nicely. There is no significant drainage. The leg is well aligned. He is neurologically intact. LABORATORY DATA: INR is 2.6. Electrolytes are stable. ASSESSMENT: A 77-year-old male with multiple medical comorbidities, new onset AFib, postop day 4 from IM nailing of left intertrochanteric fracture. He has had some difficulty controlling his heart rate. Hip fracture seems to be doing well. PLAN: 1. DVT prophylaxis including thigh high TEDs, SCDs, and now on Coumadin and is therapeutic. 2. PT, OT. He can weightbear as tolerated. 3. Medical management as per the medicine service. 4. Disposition: He is orthopedically accepted for discharge any time. I need to see him back 2 weeks from surgery date. Any orthopedic questions can be directed to me at [phone].
[2017-08-03] MEDS: CEFTRIAXONE SOD INJ 1 GM in DEXTROSE 5% ADD-VANTAGE 50ML 50 ML IV SCH (11:33)
--- NOTE | 2017-08-03 13:38 | DIAGNOSTIC IMAGING REPORT ---
HEAD WITHOUT CONTRAST (CT) CLINICAL HISTORY: 77 years-old Male presenting with recent falls, altered MS, eval for ICH. TECHNIQUE: Multidetector CT imaging of the head was performed without the use of intravenous contrast. IV contrast: None. A dose lowering technique was used consistent with the principles of ALARA (as low as reasonably achievable). COMPARISON: None. CT DOSE (mGy.cm): The estimated cumulative dose is 638.56 mGycm. FINDINGS: Pumper Gauger Apprentice topogram: Unremarkable. Proportional ventricular and sulcal prominence, likely age-related parenchymal volume loss. Periventricular and subcortical white matter hypoattenuation, nonspecific but likely indicative of chronic small vessel ischemic change. 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 No mass effect or midline shift. No hemorrhage or acute territorial infarct. No extra-axial fluid collection. Paranasal sinuses and mastoid air cells clear. Calvarium intact. Tubes noted in the bilateral external auditory canals. IMPRESSION: 1. Chronic small vessel ischemic change. No acute intracranial abnormality. Electronically signed by: Rick Nielson M.D. 08/03/2017 1:37 PM Dictated Date/Time: 08/03/2017 1:34 PM
[2017-08-03] MEDS: WARFARIN SOD 2 MG TAB PO SCH (16:21)
[2017-08-03] MEDS: PRAVASTATIN SOD 20 MG TAB PO SCH (16:21)
[2017-08-03] MEDS: DOCUSATE SODIUM/SENNA 50/8.6MG TAB PO SCH (21:20)
--- NOTE | 2017-08-03 22:22 | Progress Note ---
Subjective Date of Service: August 03, 2017. Subjective Pt evaluation today including: conversation w/ patient, physical exam, chart review, lab review, review of studies (CT head), review of inpatient medication list Pain: left leg only PO Intake: fair Voiding: holly catheter in place tele - a. fib rates > 100 nearly at all times (he is in bed all day and still uncontrolled) sleeping upon my arrival mildly confused yet again denied any complaints except for left leg pain Problem List Medical Problems: (1) Acute kidney insufficiency Status: Acute (2) Hypokalemia Status: Acute (3) Pneumonia Status: Acute Review of Systems Respiratory: No cough, No shortness of breath, No dyspnea at rest Cardiac: No chest pain, No orthopnea Abdomen: No pain Objective Vital Signs Date Time Temp Pulse Resp B/P (MAP) Pulse Ox O2 Delivery O2 Flow Rate FiO2 08/03/17 20:00 Nasal Cannula 2.0 08/03/17 19:44 37.0 104 20 100/65 (77) 99 Nasal Cannula 3.0 08/03/17 19:10 94 16 96 Nasal Cannula 3.0 08/03/17 16:00 Room Air 08/03/17 15:26 36.8 87 20 109/69 (82) 94 Room Air 08/03/17 14:25 92 16 95 Room Air 08/03/17 12:00 Room Air 08/03/17 11:20 36.4 93 20 119/71 (87) 92 Room Air 08/03/17 08:00 Room Air 08/03/17 07:09 36.4 131 20 120/87 (98) 95 Room Air 08/03/17 04:45 36.2 119 18 135/78 (97) 94 Room Air 08/03/17 04:00 Room Air 08/03/17 01:53 117 16 95 Room Air 08/03/17 00:07 36.4 122 22 120/63 (82) 91 Room Air 08/03/17 00:00 Room Air Physical Exam General Appearance: no apparent distress, + cachetic ENT: pharynx normal Neck: no JVD Respiratory/Chest: no respiratory distress, no accessory muscle use, + rales ( scant bases, minimal end exp wheeze) Cardiovascular: no murmur, + tachycardia, + irregularly irregular Abdomen: normal bowel sounds, non tender, soft, no organomegaly, + distended ( mild) Extremities: + swelling (left thigh) Neurologic/Psychiatric: alert, + disoriented (mild) Skin: + pertinent finding (fab intact left thigh ) Laboratory Results Last 24 Hours Test 08/03/17 05:44 Prothrombin Time 26.8 SECONDS Prothromb Time International Ratio 2.6 Sodium Level 137 mmol/L Potassium Level 4.7 mmol/L Chloride Level 106 mmol/L Carbon Dioxide Level 24 mmol/L Anion Gap 7.0 mmol/L Blood Urea Nitrogen 44 mg/dl Creatinine 1.53 mg/dl Est Creatinine Clear Calc Drug Dose 32.1 ml/min Estimated GFR () 49.7 Estimated GFR (Non- 42.9 BUN/Creatinine Ratio 28.8 Random Glucose 82 mg/dl Calcium Level 7.9 mg/dl Assessment and Plan 77yo male - 1. rapid a. fib - ongoing; increase metoprolol to 50mg TID. on coumadin for anticoagulation. daily INR. 2. acute systolic CHF - appears compensated again today; cont BB. If renal function allows would add low dose ERIK or ARB ultimately. 3. left hip fracture s/p ORIF, POD#4 - appreciate ortho assistance; warfarin for DVT proph; from ortho standpoint can WBAT. 4. cachexia, weight loss, severe protein calorie malnutrition - underlying malignancy?; added MVI, boost, thiamine; outpatient w/u; I voiced my concerns w / pt's during yesterday's conversation 5. constipation - improved 6. CKD stage 4 vs acute kidney injury - creatinine improved again today; BMP am. 7. vitamin D def - severe - ergocalciferol 79421 units weekly x 8 weeks 8. metabolic encephalopathy - supportive care; avoid benzos; according to may have cognitive impairment; CT head today, r/o ICH from recent fall. 9. severe protein calorie malnutrition - boost, etc 10. community-acquired pneumonia - day #6 of rocephin; d/c, and give 2 more doses of levaquin 750mg over next 4 days. Improved overall. 11. folic acid def - folate 1mg daily x 30 days. 12. mild thrombocytopenia - likely due to consumption in setting of surgery. repeat cbc in 2 days for stability. will need SNF for rehab Continued [facility] stay due to: inadequate oral pain control, ambulation difficulties, multiple IV medications needed Discharge planning: assisted facility
[2017-08-04] VITALS (12 sets, daily range): BP systolic 99–129; BP diastolic 60–88; PULSE 84–113; TEMP 36.3–36.9; O2SAT 95–99
[2017-08-04] MEDS: LEVALBUTEROL 1.25MG/0.5ML NEB INH SCH ×4 (01:48→19:13)
[2017-08-04] MEDS: IPRATROPIUM BROMIDE NEB SOLN 0.02% 2.5 ML VIAL INH SCH ×4 (01:48→19:13)
[2017-08-04 06:33] LABS: HEMATOCRIT 30.4 % (42-52); HEMOGLOBIN 10.1 g/dL (14.0-18.0); MEAN CELL VOLUME 87.9 fL (80-100); MEAN CORPUSCULAR HEMOGLOBIN 29.2 pg (25-34); MEAN CORPUSCULAR HGB CONC 33.2 g/dl (32-36); MEAN PLATELET VOLUME 10.6 fL (7.4-10.4); PLATELET COUNT 143 K/uL (130-400); RED CELL DISTRIBUTION WIDTH CV 16.4 % (11.5-14.5); RED CELL DISTRIBUTION WIDTH SD 52.7 fL (36.4-46.3); WHITE BLOOD COUNT 4.59 K/uL (4.8-10.8)
[2017-08-04 06:41] LABS: INR 2.4 (0.9-1.1)
[2017-08-04 07:09] LABS: CALCIUM 8.5 mg/dl (8.5-10.1); CREATININE 1.5 mg/dl (0.60-1.40); POTASSIUM 4.8 mmol/L (3.5-5.1)
[2017-08-04] MEDS: BOOST VANILLA PO SCH ×2 (08:07→16:31)
[2017-08-04] MEDS: METOPROLOL TARTRATE 25 MG TAB PO SCH ×3 (08:08→20:09)
[2017-08-04] MEDS: ACETAMINOPHEN 325 MG TAB PO PRN (08:08)
[2017-08-04] MEDS: CEROVITE ADV FORMULA TAB PO SCH (08:08)
[2017-08-04] MEDS: THIAMINE HCL 100 MG TAB PO SCH (08:09)
--- NOTE | 2017-08-04 08:53 | PROGRESS NOTE ---
DATE: 08/04/2017 SUBJECTIVE: A 77-year-old gentleman postop day 5 from a left hip IM nailing for an intertrochanteric fracture. Seems to be doing better today. Denies any significant pain while lying in bed. Looks more comfortable. Breathing well. He is eating his breakfast. OBJECTIVE: VITAL SIGNS: Temperature 36.5. Vital signs stable. GENERAL: Reveals a pleasant, elderly, cachectic male. He is sitting up in bed, eating breakfast. EXTREMITIES: Examination of left hip reveals incision to be clean, dry, and intact. He can dorsiflex and plantarflex his foot appropriately. He is neurologically intact. LABORATORY DATA: Hemoglobin 10.1, hematocrit 30.4. Electrolytes are stable. ASSESSMENT: A 77-year-old male with multiple comorbidities postop day 5 from a left hip intramedullary nailing for an intertrochanteric fracture. He is doing reasonably well. Heart rate seems to be better controlled. He is having less pain. Clinically, he just looks more stable. PLAN: 1. DVT prophylaxis including thigh high TEDs, SCDs, and on Coumadin. INR is therapeutic. 2. PT/OT. Weight bear as tolerated. 3. Pain control seems to be doing pretty well with current pain regimen. 4. Disposition: He is orthopedically accepted for discharge any time medically stable. I need to see him back in 2 weeks from the surgery date. Any orthopedic questions can be directed at [phone].
[2017-08-04] MEDS ORDERED: LEVOFLOXACIN 750 MG TAB PO SCH (11:00)
[2017-08-04] MEDS: WARFARIN SOD 2 MG TAB PO SCH (16:31)
[2017-08-04] MEDS: PRAVASTATIN SOD 20 MG TAB PO SCH (16:31)
[2017-08-04] MEDS: DOCUSATE SODIUM/SENNA 50/8.6MG TAB PO SCH (20:09)
[2017-08-05] VITALS (11 sets, daily range): BP systolic 92–125; BP diastolic 60–86; PULSE 85–118; TEMP 36.3–37; O2SAT 95–99
[2017-08-05] MEDS: IPRATROPIUM BROMIDE NEB SOLN 0.02% 2.5 ML VIAL INH SCH ×4 (01:55→19:29)
[2017-08-05] MEDS: LEVALBUTEROL 1.25MG/0.5ML NEB INH SCH ×4 (01:55→19:29)
[2017-08-05] MEDS: ACETAMINOPHEN 325 MG TAB PO PRN ×3 (02:55→20:50)
[2017-08-05 04:33] LABS: INR 2.4 (0.9-1.1)
[2017-08-05 04:42] LABS: CREATININE 1.46 mg/dl (0.60-1.40); POTASSIUM 4.8 mmol/L (3.5-5.1)
--- NOTE | 2017-08-05 07:21 | Progress Note ---
Subjective Date of Service: August 04, 2017. Subjective Pt evaluation today including: conversation w/ patient, conversation w/ family ( by phone), physical exam, chart review, lab review, review of studies ( head CT), review of inpatient medication list Pain: left leg only PO Intake: slightly improved today Voiding: incontinence (some) pt was sitting in the chair at bedside during the visit it was the best he had looked in the several days I had been caring for him he only c/o left leg pain tele overnight with largely controlled a. fib rates denied any dyspnea Problem List Medical Problems: (1) Acute kidney insufficiency Status: Acute (2) Hypokalemia Status: Acute (3) Pneumonia Status: Acute Review of Systems Constitutional: No fever Respiratory: No shortness of breath Cardiac: No chest pain Abdomen: No pain Objective Vital Signs Date Time Temp Pulse Resp B/P (MAP) Pulse Ox O2 Delivery O2 Flow Rate FiO2 08/04/17 23:59 Room Air 08/04/17 23:56 36.7 92 18 102/60 (74) 95 08/04/17 20:09 109/60 (76) 08/04/17 20:00 Room Air 08/04/17 19:13 93 14 97 Room Air 08/04/17 18:59 36.6 96 20 99/62 (74) 97 Room Air 08/04/17 16:00 Room Air 08/04/17 15:51 36.7 95 20 113/76 (88) 96 Room Air 08/04/17 14:03 84 14 97 Room Air 08/04/17 12:28 36.3 96 22 102/66 (78) 98 Room Air 08/04/17 12:00 Room Air 08/04/17 08:30 95 Room Air 08/04/17 08:00 Room Air 08/04/17 07:08 101 16 97 Nasal Cannula 3.0 08/04/17 06:34 36.5 96 21 119/73 (88) 97 Nasal Cannula 3.0 08/04/17 04:48 36.6 113 21 129/88 (102) 98 Nasal Cannula 3.0 08/04/17 04:00 Nasal Cannula 2.0 Physical Exam General Appearance: no apparent distress, + cachetic, + thin ENT: pharynx normal Neck: no JVD Respiratory/Chest: no respiratory distress, no accessory muscle use, + pertinent finding (lungs much more clear today, minimal basilar rales; no wheeze today) Cardiovascular: no gallop, no murmur, + irregularly irregular Abdomen: normal bowel sounds, non tender, soft, no organomegaly Extremities: + swelling (left thigh) Neurologic/Psychiatric: alert, + pertinent finding (mild confusion) Skin: + pertinent finding (left thigh fab intact) Laboratory Results Last 24 Hours Test 08/04/17 06:18 White Blood Count 4.59 K/uL Red Blood Count 3.46 M/uL Hemoglobin 10.1 g/dL Hematocrit 30.4 % Mean Corpuscular Volume 87.9 fL Mean Corpuscular Hemoglobin 29.2 pg Mean Corpuscular Hemoglobin Concent 33.2 g/dl RDW Standard Deviation 52.7 fL RDW Coefficient of Variation 16.4 % Platelet Count 143 K/uL Mean Platelet Volume 10.6 fL Prothrombin Time 24.6 SECONDS Prothromb Time International Ratio 2.4 Sodium Level 136 mmol/L Potassium Level 4.8 mmol/L Chloride Level 107 mmol/L Carbon Dioxide Level 26 mmol/L Anion Gap 3.0 mmol/L Blood Urea Nitrogen 48 mg/dl Creatinine 1.50 mg/dl Est Creatinine Clear Calc Drug Dose 36.4 ml/min Estimated GFR () 51.0 Estimated GFR (Non- 44.0 BUN/Creatinine Ratio 32.0 Random Glucose 85 mg/dl Calcium Level 8.5 mg/dl Assessment and Plan 77yo male - 1. rapid a. fib - improved with titration of metoprolol to 50mg TID. on coumadin for anticoagulation and INR therapeutic today. daily INR. 2. acute systolic CHF - appears compensated again today; cont BB. If renal function allows would add low dose ERIK or ARB ultimately. 3. left hip fracture s/p ORIF, POD#5 - appreciate ortho assistance; warfarin for DVT proph; from ortho standpoint can WBAT. 4. cachexia, weight loss, severe protein calorie malnutrition - underlying malignancy?; added MVI, boost, thiamine; outpatient w/u; I voiced my concerns w / pt's about the weight loss; she stated "He just doesn't eat." 5. constipation - improved 6. acute kidney injury - creatinine improved again today; BMP am. 7. vitamin D def - severe - ergocalciferol 79321 units weekly x 8 weeks 8. metabolic encephalopathy - supportive care; avoid benzos; according to may have cognitive impairment; CT head with lacunar infarcts; these could be related to a. fib - difficult to know 9. severe protein calorie malnutrition - boost, etc 10. community-acquired pneumonia - day #7 of Rx (finish course with po levaquin ). Overall improved. 11. folic acid def - folate 1mg daily x 30 days. 12. mild thrombocytopenia - likely due to consumption in setting of surgery. cbc today with improved platelet count. 13. CKD stage 3? once #6 is resolved we can see where creatinine settles out. will need SNF for rehab updated by phone 08/04/17 Continued [facility] stay due to: inadequate oral pain control, ambulation difficulties, multiple IV medications needed Discharge planning: half-way facility
[2017-08-05] MEDS: BOOST VANILLA PO SCH ×2 (07:54→16:41)
[2017-08-05] MEDS: CEROVITE ADV FORMULA TAB PO SCH (07:56)
[2017-08-05] MEDS: THIAMINE HCL 100 MG TAB PO SCH (07:56)
[2017-08-05] MEDS: METOPROLOL TARTRATE 25 MG TAB PO SCH ×3 (07:56→15:44)
--- NOTE | 2017-08-05 12:17 | Discharge Instructions ---
Discharge Instructions Date of Service August 06, 2017. Admission Reason for Admission: Afib, Closed Left Hip Fracture Discharge Discharge Diagnosis / Problem: Atrial fibrillation with RVR, Left hip fracture with repair Discharge Goals Goal(s): Decrease discomfort, Improve function, Increase independence, Improve disease control Activity Recommendations Activity Level: Up Ad Marta Therapies: Physical Therapy, Occupational Therapy Weightbearing Status: Left weightbearing (as tolerated) Lifting Limitations: no more than 10 pounds, gradually increase as tolerated Exercise/Sports Limitations: as tolerated, gradually increase as tolerated Shower/Bathe: no limitations (with assistance) . Additional Information Patient informed of condition: Yes Advance Directives: Yes DNR: Yes Level of Care: Skilled Communicable Disease: No Prognosis: Stable Instructions / Follow-Up Instructions / Follow-Up You were admitted to [facility] with left hip fracture and diagnosed with the same as well as atrial fibrillation with RVR and severe Newly diagnosed systolic CHF. During your stay here you were treated with fixation of the hip fracture by orthopedics, Dr. Ledesma. Follow up with ortho within 2 weeks from surgery date on 07/30 Atrial Fibrillation You were also seen by cardiology for atrial fibrillation and were started on medication which kept your rate controlled. - Continue taking metoprolol succinate 150 mg once in the morning, this has been transitioned from metoprolol tartrate 50 mg three times daily which provided adequate rate control in the hospital. - Follow up with cardiology within 2 weeks. - discuss starting low dose ERIK or ARB medication at this time - INR on day of discharge was 1.9, take 3 mg coumadin daily. Follow INR daily x 2 days. Continue to drink boost, take multivitamin and thiamine and folic acid for nutritional improvement daily. Severe vitamin D deficiency - Take ergocalciferol 61774 units weekly x 8 weeks Community-acquired pneumonia - You finished a 7 day course of levaquin while admitted. Medications: Continue taking your medications as prescribed. Appointments: Follow up with PCP within 1 week. Follow up with cardiology within 2 weeks. Follow up with orthopedics within 10 days. Call 911 and go to the Emergency Room if: * You have tightness or pain in your chest that does not go away with rest or Nitroglycerin * You are very short of breath even with rest Call your doctor if any of the following symptoms or problems start or get worse: * Shortness of breath or difficulty breathing * Wake up at night short of breath * Chest pain * Cough * Swelling of your hands, fee, or legs * More fatigued or tired with your normal activity * Palpitations - sudden fast heart beats WEIGHT * Weigh yourself every morning after using the bathroom. * Use the same scale. * Wear the same amount of clothing. * Write your weight down on your chart. * Call your doctor if you gain more than 2-3 pounds in 1-2 days. MEDICATIONS * Use this discharge instruction sheet for instructions. * Take your medications at the time your doctor ordered. * Do not skip a dose of your medicines. * If you miss a dose of medicine, take as soon as possible, but DO NOT DOUBLE A DOSE. * Read your medicine information when you get home. * Know all of the side effects of your medicine. * Call your doctor's office if you have any side effects. * Be sure all of your doctors know what medicine and herbs you take (including cold, flu, and herbal medicine). * Pain Medicine: If you do not get relief from your pain, please call your doctor for help. Take the following with you to your follow-up doctor appointments: * Weight Chart * Medication List * List of questions Do not drink excessive alcohol, beer or wine. Current Hospital Diet Patient's current hospital diet: AHA Diet (Heart Healthy) Discharge Diet Recommended Diet: AHA Diet (Heart Healthy), Low Sodium Diet (2gm Na) Fluid Restriction: 1800 ml (7 cups) Procedures Procedures Performed: Trochanteric Nail left Femoral Hip Fracture ECHO CT Head CXR Xray hip and pelvis Pending Studies Studies pending at discharge: no Physician Orders On Transfer Weigh: Daily Additional Orders: PT/INR in 1 day POLST Discussion: Not Applicable Medical Emergencies . Who to Call and When: Medical Emergencies: If at any time you feel your situation is an emergency, please call 911 immediately. . Non-Emergent Contact Non-Emergency issues call your: Primary Care Provider, Oven Drier Tender Call Non-Emergent contact if: you have a fever, temperature is above 100.5, your pain is not controlled, your pain is worsening, your pain is unusual for you, your pain is concerning you, you have any medication questions other concerns with your health. Call 911 or go directly to the Emergency Department if you experience any of the following: Chest pain, chest tightness, shortness of breath, abdominal pain , lightheadedness, dizziness, gastrointestinal bleeding, or have any other concerns regarding your health. . Past History Medical & Surgical History: (1) A-fib (2) Closed left hip fracture (3) Pneumonia (4) Hypokalemia (5) Acute kidney insufficiency . "Provider Documentation" section prepared by Kandis Cee. . Core Measure Problem Core Measures: None [place] Drug Monitoring Program Search Results: no issues identified
--- NOTE | 2017-08-05 13:59 | Discharge Summary ---
Discharge Summary Date of Service August 06, 2017. Discharge Summary Admission Date: Jul 28, 2017 at 09:32 Discharge Date: August 06, 2017 Discharge Disposition: [facility] facility Principal Diagnosis: Left femoral hip fracture, new onset afib with RVR Problems/Secondary Diagnoses: Rapid a. fib Chronic biventricular systolic CHF Left hip fracture s/p ORIF Severe protein calorie malnutrition/Cachexia/weight loss CKD stage III Acute kidney injury- resolved Vitamin D deficiency Acute metabolic encephalopathy community-acquired pneumonia Folic acid deficiency Mild thrombocytopenia - improved Emphysema Current smoker Moderate-severe mitral regurgitation Immunizations: Have You Had Influenza Vaccine: No History of Tetanus Vaccine?: Unknown History of Pneumococcal: No History of Hepatitis B Vaccine: No Procedures: SINGLE VIEW CHEST 07/28/17 IMPRESSION: 1. Cardiomegaly without radiographic evidence of congestive failure. 2. Emphysema. 3. Airspace consolidation is seen in the right upper lobe. Mild opacities are also seen at the left lung base. Correlate clinically for evidence of an infectious/inflammatory pneumonitis. Radiographic follow-up to resolution is recommended. SINGLE VIEW PELVIS; 2 VIEWS LEFT HIP 07/28/17 IMPRESSION: 1. There is a nondistracted intertrochanteric fracture of the left femur. 2. No additional fracture is seen involving the right hip or bony pelvis. L hip INTRAOPERATIVE RADIOGRAPHS 07/30/17 IMPRESSION: Intraoperative images from open reduction and internal fixation of the left femur as above. CHEST ONE VIEW PORTABLE 07/31/17 FINDINGS: Mixed findings. Slight improvement in infiltrative changes right apex. Slightly progressive bibasilar infiltrative change of the may relate to a component of congestive failure. Chronic interstitial fibrosis is again noted bilaterally. IMPRESSION: 1. Mixed findings. 2. Improving right apical infiltrate. 3. Slightly progressive components of congestive failure with slightly progressive bibasilar infiltrative change HEAD WITHOUT CONTRAST (CT) 08/03/17 IMPRESSION: 1. Chronic small vessel ischemic change. No acute intracranial abnormality. Consultations: Orthopedics Cardiology Medication Reconciliation New Medications: Ergocalciferol (Vitamin D 58739 Unit) 50,000 Unit Cap 1 CAP PO WK for 42 Days, #6 CAP 0 Refills Metoprolol Succ (Toprol Xl) (Toprol-Xl) 50 Mg Tabcr 3 TAB PO DAILY for 30 Days, #90 TAB 0 Refills Aluminum/Magnesium/Simeth (Mag-Al Plus Xs 400-400-40 mg/5Ml) 30 Ml Susp 15 ML PO Q4H PRN for Dyspepsia for 30 Days, #60 DOSE Bisacodyl (Bisac-Evac) 10 Mg Supp 10 MG MN DAILY PRN for Constipation for 30 Days, #30 SUPP Folic Acid (Folic Acid) 1 Mg Tab 1 MG PO QAM for 30 Days, #30 TAB Multivitamins/Minerals (Certavite/Antioxidants) 1 Tab Tab 1 TAB PO QAM for 30 Days, #30 TAB Polyethylene (Miralax) 17 Gm Pow 17 GM PO DAILY PRN for Constipation for 30 Days, #30 DOSE Pravastatin Sod (Pravastatin Sodium) 20 Mg Tab 20 MG PO DAILY@17 for 30 Days, #30 TAB Sennosides-Docusate Sodium (Senokot S) 1 Tab Tab 2 TAB PO HS for 30 Days, #60 TAB Thiamine HCl (Vitamin B-1) 100 Mg Tab 200 MG PO QAM for 30 Days, #60 TAB Warfarin Sod (Coumadin) 2 Mg Tab 2 MG PO DAILY@16 for 30 Days, #30 TAB [Boost] () 1 CAN LIQD 1 CAN PO BIDM for 30 Days, #60 DOSE Discharge Exam The patient was seen and examined this morning. Pt reports doing well today. He is sitting up eating lunch without difficulty. Pt has been working with PT/OT and taking small steps and doing well. His pain is well controlled with oxycodone. Anticipating discharge to [facility] today for rehab. ROS: Constitutional: No fever, sweats or chills Eyes: No diplopia, no worsening or blurred vision ENT: normal hearing, no trouble swallowing Respiratory: No cough, sputum, dyspnea at rest or on exertion Cardiovascular: No chest pain, tightness or palpitations Abdomen: No pain, nausea, vomiting, diarrhea or constipation Musculoskeletal: No joint pain, calf pain, swelling Neurologic: No weakness, numbness/tingling, or balance problems -using a walker for assistance Psychiatric: No anxiety or depression Skin: No rash or itch PE: General: awake, alert, no apparent distress, thin and cachectic, sitting up in bedside chairs Head: Normocephalic, atraumatic ENT: PERRL, EOMI, no pharyngeal exudate, mucous membranes moist Chest: on room air, slightly diminished breath sounds at bases bilaterally but overall improved, no adventitious breath sounds Cardiac: Irregularly irregular, rate controlled in the 90s, no JVD Abdominal: NABS x 4 quadrants, soft, nontender to palpation, no rebound, guarding or tenderness Extremities: Left hip fab intact no surrounding signs of erythema or infection, normal inspection, no peripheral edema or erythema, calfs nontender to palpation Psych: Normal mood and affect Neuro: AAO x 3, strength intact bilaterally and related /, no motor deficits, speech is clear, no peripheral sensory deficits Hospital Course Patient is a 77 y/o male, with PMHx of HTN, HLD, tobacco abuse, who presented to the ED via EMS due to a fall. L hip fracture from mechanical fall: - Tylenol PRN, Oxycodone PRN - dc IV pain medication as this may be adding to increased confusion. Tylenol only for pain after discharge - Vitamin D significantly low at 5.6 - cont supplementation - PT/OT - will need inpt rehab - CM assisting - Orthopedics management [id number] within 1 week as an outpatient Acute metabolic encephalopathy/increased lethargy - RESOLVED - ABG was obtained 07/29 and was wnl. - likely dt sedatives administered overnight on 07/28: ativan, percocet, dilaudid - much improved/resolved at this point. - off IV narcotics New onset a.fib w/ RVR: -Remained on tele for cardiac monitoring -rates in the 90s-100 by the day of discharge, rate control limited by borderline low blood pressures but are acceptable at this time - Trop neg x 3 - O2 protocol, wean as tolerated- does NOT have O2 supplement at home -now on room air - Cardiology on board - titrate metoprolol up to 50 mg TID and converted to Toprol xl 150 mg qam upon discharge -initially required a Cardizem drip however was titrated off on 08/02. Eventually patient should be placed on an ERIK or ARB however borderline blood low blood pressure at this point will await outpatient cardiology recommendation. - Cont coumadin and this will also cover DVT ppx. INR = 1.9 and slightly subtherapeutic on the day of discharge, but had been therapeutic for many days. Increased dose of Coumadin from 2 to 3 mg daily and recommend follow-up PT/ INR in 1 day Newly diagnosed chronic biventricular systolic CHF-stable Possible pulmonary hypertension Moderate to severe MR/ Mild to mod TR - Echo showing severely reduced EF during this admission - positive ~4L overall since admission however appears euvolemic -On beta-myke, no ACEI due to borderline blood pressures as above, no diuretic needed, follow-up with cardiology within 2 weeks Moderate-severe mitral valve regurgitation-found on echocardiogram -Not a good candidate for surgery -Follow-up with cardiology within 2 weeks Community-acquired PNA- RUL and LLB: Resolved - IV Rocephin + Azithromycin (started 07/28) -finished a 5 day course. - DuoNebs QID and PRN for SOB/wheezing - MRSA swab neg Hyperkalemia - resolved - K = 4.9 - got dose of Kayexalate on 07/31. he was on fluids with KCl initially but these were switched to NSS on 07/28. 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 - PRP improved HTN: - Will hold Lisinopril 10 mg daily and Norvasc 5 mg daily - cont metoprolol as above. - stop norvasc completely and not resume upon discharge. Would also start lisinopril when BP slightly improved as per cardiology as outpt HLD: Continue Pravastatin 20 mg HS DVT prophylaxis: TEDs/SCDs, coumadin Code status: LEVEL V, DNR Dispo: From home, lives with - CM consulted; will consult PT/OT, will need inpt placement -discharged to [facility] today. Total Time Spent: Greater than 30 minutes This includes examination of the patient, discharge planning, medication reconciliation, and communication with other providers. Discharge Instructions Please refer to the electronic Patient Visit Report (Discharge Instructions) for additional information. Follow-Up Follow up with your Primary Care Provider within 1 week. Follow up with cardiology within 2 weeks. Follow up with orthopedics within 1 week. [facility]; Oliver Boyle M.D. 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 Discussed with CORDELIA Cee and agree with findings and plan as documented in the note. Any exceptions or clarifications are listed here: Patient says he feels weary and just wants to go home. Vitals reviewed, telemetry with A. fib with PVCs, rates in the 90s-100 Gen: Alert and awake, cachectic, NAD HEENT: anicteric sclerae, EOMI CV: Irregularly irregular, 1/6 CHASTITY at the RUSB, normal S1S2 Pulm: Diminished breath sounds throughout but much improved from previous, no rhonchi or wheezes or crackles Abd: Scaphoid, +BS soft NT ND no masses or hernias Ext: no edema, left hip with dressing in place with dried serous fluid Skin: no rashes, warm/dry 77yo male - 1. rapid a. fib - improved with titration of metoprolol to 50mg TID and switch to Toprol-XL 150 mg. Is now on coumadin for anticoagulation 2. Chronic biventricular systolic CHF - appears compensated again today; cont BB. If renal function and blood pressure allows would add low dose ERIK or ARB ultimately as an outpatient. 3. left hip fracture s/p ORIF, POD#7 - appreciate ortho assistance; warfarin for DVT proph; from ortho standpoint can WBAT. 4. cachexia, weight loss, severe protein calorie malnutrition - underlying malignancy?; added MVI, boost, thiamine; outpatient w/u; I report "He just doesn't eat." 5. constipation - improved 6. acute kidney injury - creatinine improved again today; follow BMP periodically 7. vitamin D def - severe - ergocalciferol 99068 units weekly x 8 weeks 8. metabolic encephalopathy - supportive care; avoid benzos; according to may have cognitive impairment; CT head with lacunar infarcts; these could be related to a. fib - difficult to know 9. severe protein calorie malnutrition - boost, etc 10. community-acquired pneumonia -completed antibiotic course. Would recommend following chest x-ray to resolution in case of underlying malignancy given extensive smoking history 11. folic acid def - folate 1mg daily x 30 days. 12. mild thrombocytopenia - likely due to consumption in setting of surgery. cbc today with improved platelet count. 13. CKD stage 3? once #6 is resolved we can see where creatinine settles out. Stable for discharge to SNF today Documented By: Mirian Dumont
[2017-08-05] MEDS ORDERED: CNT PO ×2 (14:06)
[2017-08-05] MEDS ORDERED: MLXESC PO ×2 (14:06)
[2017-08-05] MEDS ORDERED: Boost PO ×2 (14:06)
[2017-08-05] MEDS ORDERED: LPR25 PO (14:06)
[2017-08-05] MEDS ORDERED: PRVC20 PO ×2 (14:06)
[2017-08-05] MEDS ORDERED: FLV1 PO ×2 (14:06)
[2017-08-05] MEDS ORDERED: ERGO500037 PO ×2 (14:06)
[2017-08-05] MEDS ORDERED: SENN8.6T7 PO ×2 (14:06)
[2017-08-05] MEDS ORDERED: MRLP17X PO ×2 (14:06)
[2017-08-05] MEDS ORDERED: CMD2 PO (14:06)
[2017-08-05] MEDS ORDERED: DLCS PR ×2 (14:06)
[2017-08-05] MEDS ORDERED: THM100 PO ×2 (14:06)
--- NOTE | 2017-08-05 14:42 | Hospitalist Progress Note ---
Hospitalist Progress Note Date of Service August 05, 2017. (Sally Cee PA-C) Subjective Pt evaluation today including: conversation w/ patient, conversation w/ family , physical exam, chart review, lab review The patient was seen and examined this morning. Pt reports doing well today. He is sitting up eating lunch without difficulty. Pt has been working with PT/OT and taking small steps and doing well. His pain is well controlled with oxycodone. Anticipating discharge to [facility] today for rehab. ROS: Constitutional: No fever, sweats or chills Eyes: No diplopia, no worsening or blurred vision ENT: normal hearing, no trouble swallowing Respiratory: No cough, sputum, dyspnea at rest or on exertion Cardiovascular: No chest pain, tightness or palpitations Abdomen: No pain, nausea, vomiting, diarrhea or constipation Musculoskeletal: No joint pain, calf pain, swelling Neurologic: No weakness, numbness/tingling, or balance problems -using a walker for assistance Psychiatric: No anxiety or depression Skin: No rash or itch PE: General: awake, alert, no apparent distress, thin and cachectic Head: Normocephalic, atraumatic ENT: PERRL, EOMI, no pharyngeal exudate, mucous membranes moist Chest: on room air, slightly diminished breath sounds at bases bilaterally, no adventitious breath sounds Cardiac: Irregularly irregular, rate controlled, no JVD Abdominal: NABS x 4 quadrants, soft, nontender to palpation, no rebound, guarding or tenderness Extremities: Left hip fab intact no surrounding signs of erythema or infection, normal inspection, no peripheral edema or erythema, calfs nontender to palpation Psych: Normal mood and affect Neuro: AAO x 3, strength intact bilaterally and related 5/5, no motor deficits, speech is clear, no peripheral sensory deficits (Sally Cee PA-C) Objective Vital Signs Date Time Temp Pulse Resp B/P (MAP) Pulse Ox O2 Delivery O2 Flow Rate FiO2 08/05/17 12:00 Room Air 08/05/17 11:39 36.7 93 18 92/60 (71) 96 08/05/17 09:27 105 95 08/05/17 08:00 Room Air 08/05/17 08:00 Room Air 08/05/17 06:56 86 16 96 Room Air 08/05/17 06:45 36.6 112 18 122/81 (95) 97 Room Air 08/05/17 04:00 Room Air 08/05/17 03:48 36.3 118 18 122/79 (93) 95 Room Air 08/05/17 01:55 89 14 96 Room Air 08/04/17 23:59 Room Air 08/04/17 23:56 36.7 92 18 102/60 (74) 95 08/04/17 20:09 109/60 (76) 08/04/17 20:00 Room Air 08/04/17 19:13 93 14 97 Room Air 08/04/17 18:59 36.6 96 20 99/62 (74) 97 Room Air 08/04/17 16:00 Room Air 08/04/17 15:51 36.7 95 20 113/76 (88) 96 Room Air (Sally Cee PA-C) Laboratory Results Last 24 Hours Test 08/05/17 04:14 Prothrombin Time 24.7 SECONDS Prothromb Time International Ratio 2.4 Sodium Level 135 mmol/L Potassium Level 4.8 mmol/L Chloride Level 106 mmol/L Carbon Dioxide Level 26 mmol/L Anion Gap 3.0 mmol/L Blood Urea Nitrogen 48 mg/dl Creatinine 1.46 mg/dl Est Creatinine Clear Calc Drug Dose 37.4 ml/min Estimated GFR () 52.6 Estimated GFR (Non- 45.4 BUN/Creatinine Ratio 32.6 Random Glucose 87 mg/dl Calcium Level 8.0 mg/dl (Sally Cee PA-C) Assessment and Plan Patient is a 77 y/o male, with PMHx of HTN, HLD, tobacco abuse, who presented to the ED via EMS due to a fall. L hip fracture from mechanical fall: - Tylenol PRN, Oxycodone PRN - dc IV pain medication as this may be adding to increased confusion. Will attempt to also wean off percocet. - Vitamin D significantly low at 5.6 - cont supplementation - PT/OT - will need inpt rehab - CM assisting - Orthopedics on board - Cardiology consulted: titrate metoprolol up to 50 mg TID and convert to Toprol xl starting tomorrow, off cardizem gtt- discussed with Dr. Sylvester - Coumadin decreased today to 2 mg as his INR jose cruz quickly - for dvt ppx Increased lethargy - RESOLVED - ABG was obtained 07/29 and was wnl. - likely dt sedatives administered overnight on 07/28: ativan, percocet, dilaudid - much improved/resolved at this point. - off IV narcotics New onset a.fib w/ RVR: - cont on tele for cardiac monitoring - hr sitting around 100 now - Trop neg x 3 - O2 protocol, wean as tolerated- does NOT have O2 supplement at home -now on room air - Cardiology on board - titrate metoprolol up to 50 mg TID and converted to Toprol xl 150 mg qam tomorrow-initially required a Cardizem drip however was titrated off on 08/02. Eventually patient should be placed on an ERIK or ARB however borderline blood low blood pressure at this point will await outpatient cardiology recommendation during his follow up in 2 weeks. 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 - DuoNebs QID and PRN for SOB/wheezing - MRSA swab neg Hyperkalemia - resolved - K = 4.6 - got dose of Kayexalate on 07/31. he was on fluids with KCl initially but these were switched to NSS on 07/28. - Follow PRP CKD stage III- IV: last pheresis nurse in 2015 at 1.5: REBEKAH with diuresis -resolved Darkened urine/ oliguria resolved - Cr improved to 1.9- likely small spike due to IV lasix diuresis for volume overload administered on 07/31. - PRP improved HTN: - Will hold Lisinopril 10 mg daily and Norvasc 5 mg daily - cont metoprolol. - stop norvasc completely and not resume upon discharge. Would also start lisinopril when BP slightly improved as per cardiology as outpt - Off Cardizem gtt - IV Hydralazine PRN HLD: Continue Pravastatin 20 mg HS DVT prophylaxis: TEDs/SCDs, coumadin Code status: LEVEL V, DNR Dispo: From home, lives with - CM consulted; will consult PT/OT, will need inpt placement -discharged to [facility] likely today or tomorrow pending auth (Sally Cee PA-C) Reviewed: Pt Seen/Exam by Me (Mirian Dumont MD) History Physician [employer] Supervisor supervision Note: I interviewed and examined the patient. Discussed with CORDELIA Cee and agree with findings and plan as documented in the note. Any exceptions or clarifications are listed here: Patient has no complaints. Vitals reviewed, telemetry with A. fib with PVCs, rates in the 80s-110s, a little higher this afternoon into the 120s but missed his midday dose of metoprolol by an hour and 45 minutes. Gen: Alert and awake, cachectic, NAD HEENT: anicteric sclerae, EOMI CV: Irregularly irregular, 1/6 CHASTITY at the RUSB, normal S1S2 Pulm: Diminished breath sounds throughout but improved from previous, faint expiratory wheezes scattered, occasional scattered rhonchi Abd: Scaphoid, +BS soft NT ND no masses or hernias Ext: no edema, left hip with dressing in place with dried serous fluid Skin: no rashes, warm/dry 77yo male - 1. rapid a. fib - improved with titration of metoprolol to 50mg TID and switch to Toprol-XL 150 mg for tomorrow morning. on coumadin for anticoagulation and INR therapeutic today.-Follow PT/INR 2. acute systolic CHF - appears compensated again today; cont BB. If renal function and blood pressure allows would add low dose ERIK or ARB ultimately as an outpatient. 3. left hip fracture s/p ORIF, POD#6 - appreciate ortho assistance; warfarin for DVT proph; from ortho standpoint can WBAT. 4. cachexia, weight loss, severe protein calorie malnutrition - underlying malignancy?; added MVI, boost, thiamine; outpatient w/u; I report "He just doesn't eat." 5. constipation - improved 6. acute kidney injury - creatinine improved again today; follow BMP periodically 7. vitamin D def - severe - ergocalciferol 89063 units weekly x 8 weeks 8. metabolic encephalopathy - supportive care; avoid benzos; according to may have cognitive impairment; CT head with lacunar infarcts; these could be related to a. fib - difficult to know 9. severe protein calorie malnutrition - boost, etc 10. community-acquired pneumonia - day #8 of Rx (finish course with po levaquin ). Overall improved. Will stop today 11. folic acid def - folate 1mg daily x 30 days. 12. mild thrombocytopenia - likely due to consumption in setting of surgery. cbc today with improved platelet count. 13. CKD stage 3? once #6 is resolved we can see where creatinine settles out. will need SNF for rehab-authorization pending but likely discharge tomorrow Documented By: Mirian Dumont (Mirian Dumont MD)
[2017-08-05] MEDS ORDERED: METO50TA8 PO ×2 (15:25)
[2017-08-05] MEDS: WARFARIN SOD 2 MG TAB PO SCH (16:40)
[2017-08-05] MEDS: PRAVASTATIN SOD 20 MG TAB PO SCH (16:41)
[2017-08-05] MEDS: DOCUSATE SODIUM/SENNA 50/8.6MG TAB PO SCH (20:50)
[2017-08-06] VITALS (8 sets, daily range): BP systolic 119–123; BP diastolic 72–86; PULSE 93–106; TEMP 37; O2SAT 96–98
[2017-08-06] MEDS: IPRATROPIUM BROMIDE NEB SOLN 0.02% 2.5 ML VIAL INH SCH ×2 (02:21→07:12)
[2017-08-06] MEDS: LEVALBUTEROL 1.25MG/0.5ML NEB INH SCH ×2 (02:21→07:12)
[2017-08-06 07:28] LABS: BASO % 0.7 %; BASO ABS # 0.03 K/uL (0-0.2); EOS % 1.2 %; EOS ABS # 0.05 K/uL (0-0.5); HEMATOCRIT 32.6 % (42-52); HEMOGLOBIN 10.8 g/dL (14.0-18.0); IG# 0.01 K/uL (0.00-0.02); LYMPH % 33.6 %; LYMPH ABS # 1.44 K/uL (1.2-3.4); MEAN CELL VOLUME 87.4 fL (80-100); MEAN CORPUSCULAR HGB CONC 33.1 g/dl (32-36); MEAN PLATELET VOLUME 10.1 fL (7.4-10.4); MONO % 9.1 %; MONO ABS # 0.39 K/uL (0.11-0.59); NEUT % 55.2 %; NEUT ABS # 2.36 K/uL (1.4-6.5); PLATELET COUNT 164 K/uL (130-400); RED CELL DISTRIBUTION WIDTH CV 16.6 % (11.5-14.5); RED CELL DISTRIBUTION WIDTH SD 53.1 fL (36.4-46.3); WHITE BLOOD COUNT 4.28 K/uL (4.8-10.8)
[2017-08-06 07:36] LABS: INR 1.9 (0.9-1.1)
[2017-08-06 07:59] LABS: CALCIUM 8.3 mg/dl (8.5-10.1); CREATININE 1.45 mg/dl (0.60-1.40); POTASSIUM 4.9 mmol/L (3.5-5.1)
[2017-08-06] MEDS: CEROVITE ADV FORMULA TAB PO SCH (08:18)
[2017-08-06] MEDS: THIAMINE HCL 100 MG TAB PO SCH (08:18)
[2017-08-06] MEDS: BOOST VANILLA PO SCH (08:28)
[2017-08-06] MEDS ORDERED: METOPROLOL SUCC 50MG EXT REL TAB PO SCH (09:00)
[2017-08-06] MEDS: ACETAMINOPHEN 325 MG TAB PO PRN (09:44)
[2017-08-06] MEDS ORDERED: CMD2 PO ×2 (11:15)
== END 2017-08-06 12:12 | DRG 480 ==
LOC: EDBD 07:48 → C.EDB 07:49 → C.2T 09:32 → CANRESERV 09:41 → ENRESERV 09:41 → EDBEDREQSVC 09:45 → ENRESERV 09:53 → CANRESERV 09:53 → ENRESERV 09:57
PROVIDERS: ADMIT Family Medicine; ATTEND Internal Medicine
PROC: 0QS706Z Reposition Left Upper Femur with Intramedullary Internal Fixation Device, Open Approach (ICD-10-PCS; principal; 2017-07-30 09:15)
DX: S72.102A Unspecified trochanteric fracture of left femur, initial encounter for closed fracture (principal); J18.9 Pneumonia, unspecified organism; G93.41 Metabolic encephalopathy; N17.9 Acute kidney failure, unspecified; I50.22 Chronic systolic (congestive) heart failure; I10 Essential (primary) hypertension; E78.5 Hyperlipidemia, unspecified; F17.200 Nicotine dependence, unspecified, uncomplicated; W19.XXXA Unspecified fall, initial encounter; I48.91 Unspecified atrial fibrillation; J44.9 Chronic obstructive pulmonary disease, unspecified; E87.6 Hypokalemia; N18.3 Chronic kidney disease, stage 3 (moderate); E53.8 Deficiency of other specified B group vitamins; D69.6 Thrombocytopenia, unspecified; I34.0 Nonrheumatic mitral (valve) insufficiency; K59.00 Constipation, unspecified

== ENCOUNTER → 2017-08-07 | Outpatient (CLI) | payer OTHER ==
[~2017-08-07] MED LIST changes: +Boost PO; +CMD2 PO; +CNT PO; +DLCS PR; +ERGO500037 PO; +FLV1 PO; +LPR25 PO; +METO50TA8 PO; +MLXESC PO; +MRLP17X PO; +PRVC20 PO; +SENN8.6T7 PO; +THM100 PO
[2017-08-07 08:39] LABS: BASO % 1.2 %; BASO ABS # 0.05 K/uL (0-0.2); EOS % 2.5 %; HEMATOCRIT 29.2 % (42-52); HEMOGLOBIN 9.6 g/dL (14.0-18.0); LYMPH % 35.5 %; LYMPH ABS # 1.45 K/uL (1.2-3.4); MEAN CELL VOLUME 87.4 fL (80-100); MEAN CORPUSCULAR HEMOGLOBIN 28.7 pg (25-34); MEAN CORPUSCULAR HGB CONC 32.9 g/dl (32-36); MEAN PLATELET VOLUME 10.8 fL (7.4-10.4); MONO % 7.8 %; MONO ABS # 0.32 K/uL (0.11-0.59); NEUT ABS # 2.16 K/uL (1.4-6.5); PLATELET COUNT 182 K/uL (130-400); RED CELL DISTRIBUTION WIDTH CV 16.8 % (11.5-14.5); RED CELL DISTRIBUTION WIDTH SD 53.2 fL (36.4-46.3); WHITE BLOOD COUNT 4.08 K/uL (4.8-10.8)
[2017-08-07 08:46] LABS: INR 1.7 (0.9-1.1)
[2017-08-07 08:48] LABS: ALBUMIN 1.7 gm/dl (3.4-5.0); ALT/SGPT 70 U/L (12-78); AST/SGOT 69 U/L (15-37); BLOOD UREA NITROGEN 44 mg/dl (7-18); CARBON DIOXIDE 26 mmol/L (21-32); CREATININE 1.44 mg/dl (0.60-1.40); GLUCOSE 77 mg/dl (70-99); POTASSIUM 4.7 mmol/L (3.5-5.1); SODIUM 136 mmol/L (136-145)
[2017-08-07 08:50] LABS: ALKALINE PHOSPHATASE 110 U/L (45-117)
== END ==
LOC: C.LABUPNIT 08:22
PROVIDERS: ATTEND Nurse Practitioner Family
DX: I10 Essential (primary) hypertension (principal); I48.2 Chronic atrial fibrillation

== ENCOUNTER → 2017-08-09 | Outpatient (CLI) | payer OTHER ==
[~2017-08-09] MED LIST changes: -AMLO-110 PO; -LISI-461 PO; -LPR25 PO; -PRAV20TA PO
== END | disposition home or self-care (01) ==
LOC: C.LABUPNIT 08:00
PROVIDERS: ATTEND Nurse Practitioner Family
DX: I48.2 Chronic atrial fibrillation (principal)

== ENCOUNTER → 2017-08-10 | Outpatient (CLI) | payer OTHER | LOC: C.LABUPUNI 11:39 | PROVIDERS: ATTEND Nurse Practitioner Family | DX: N39.0 Urinary tract infection, site not specified (principal) ==

== ENCOUNTER → 2017-08-12 | Outpatient (CLI) | payer OTHER ==
[2017-08-12 09:34] LABS: HEMATOCRIT 28.7 % (42-52); HEMOGLOBIN 9.8 g/dL (14.0-18.0); MEAN CORPUSCULAR HEMOGLOBIN 30.7 pg (25-34); MEAN CORPUSCULAR HGB CONC 34.1 g/dl (32-36); MEAN PLATELET VOLUME 10.3 fL (7.4-10.4); PLATELET COUNT 257 K/uL (130-400); RED CELL DISTRIBUTION WIDTH CV 17.6 % (11.5-14.5); RED CELL DISTRIBUTION WIDTH SD 57.6 fL (36.4-46.3); WHITE BLOOD COUNT 4.81 K/uL (4.8-10.8)
[2017-08-12 09:40] LABS: ALBUMIN 1.8 gm/dl (3.4-5.0); ALT/SGPT 81 U/L (12-78); AST/SGOT 60 U/L (15-37); BLOOD UREA NITROGEN 40 mg/dl (7-18); CALCIUM 8.1 mg/dl (8.5-10.1); CARBON DIOXIDE 28 mmol/L (21-32); CREATININE 1.51 mg/dl (0.60-1.40); GLUCOSE 78 mg/dl (70-99); POTASSIUM 4.6 mmol/L (3.5-5.1); SODIUM 137 mmol/L (136-145)
[2017-08-12 09:43] LABS: ALKALINE PHOSPHATASE 149 U/L (45-117); TOTAL PROTEIN 5.2 gm/dl (6.4-8.2)
[2017-08-12 09:45] LABS: INR 1.9 (0.9-1.1)
== END ==
LOC: C.LABUPNIT 09:10
PROVIDERS: ATTEND Nurse Practitioner Family
DX: I10 Essential (primary) hypertension (principal); J44.9 Chronic obstructive pulmonary disease, unspecified; I48.2 Chronic atrial fibrillation

== ENCOUNTER → 2017-08-15 | Outpatient (CLI) | payer OTHER ==
[2017-08-15 08:36] LABS: HEMATOCRIT 31.7 % (42-52); HEMOGLOBIN 10.2 g/dL (14.0-18.0)
[2017-08-15 08:43] LABS: INR 2.4 (0.9-1.1)
[2017-08-15 08:48] LABS: BLOOD UREA NITROGEN 34 mg/dl (7-18); CALCIUM 8.2 mg/dl (8.5-10.1); CARBON DIOXIDE 29 mmol/L (21-32); CREATININE 1.47 mg/dl (0.60-1.40); GLUCOSE 82 mg/dl (70-99); POTASSIUM 4.5 mmol/L (3.5-5.1); SODIUM 138 mmol/L (136-145)
== END ==
LOC: C.LABUPNIT 08:18
PROVIDERS: ATTEND Nurse Practitioner Family
DX: I10 Essential (primary) hypertension (principal); I48.2 Chronic atrial fibrillation

== ENCOUNTER → 2017-08-16 | Outpatient (CLI) | payer OTHER | LOC: C.LABUPNIT 12:44 | PROVIDERS: ATTEND Nurse Practitioner Family | DX: N39.0 Urinary tract infection, site not specified (principal) ==

== ENCOUNTER → 2017-08-19 | Outpatient (CLI) | payer OTHER ==
[2017-08-19 08:44] LABS: INR 2.5 (0.9-1.1)
== END ==
LOC: C.LABUPNIT 08:12
PROVIDERS: ATTEND Nurse Practitioner Family
DX: I48.2 Chronic atrial fibrillation (principal)

== ENCOUNTER → 2017-08-22 | Outpatient (CLI) | payer OTHER ==
[2017-08-22 09:54] LABS: INR 2.8 (0.9-1.1)
[2017-08-22 10:12] LABS: ALBUMIN 2.3 gm/dl (3.4-5.0); ALKALINE PHOSPHATASE 177 U/L (45-117); ALT/SGPT 86 U/L (12-78); AST/SGOT 57 U/L (15-37); BLOOD UREA NITROGEN 46 mg/dl (7-18); CALCIUM 8.6 mg/dl (8.5-10.1); CARBON DIOXIDE 25 mmol/L (21-32); GLUCOSE 81 mg/dl (70-99); POTASSIUM 4.8 mmol/L (3.5-5.1); SODIUM 138 mmol/L (136-145)
== END | disposition home or self-care (01) ==
LOC: C.LABUPNIT 08:42
PROVIDERS: ATTEND Nurse Practitioner Family
DX: I10 Essential (primary) hypertension (principal)